=== PATIENT | male | born 1950 | race Caucasian/White ===

== ENCOUNTER 2018-05-18 10:20 | Emergency (ER) | payer MEDICARE, MEDICAID, SELFPAY ==
[2018-05-18] VITALS (34 sets, daily range): BP systolic 135–170; BP diastolic 81–112; PULSE 50–128; RESP 5–30; TEMP 36.7; O2SAT 95–100
--- NOTE | 2018-05-18 10:22 | DI.REPORT_ITS ---
SYMPTOM/DIAGNOSIS: DIZZY CHEST X-RAY: Portable AP view. Comparison 04/10/16 Heart size and pulmonary vasculature are stable. There is again seen an aortic valve replacement. The lungs are clear and well expanded. No effusions or pneumothoraces identified. IMPRESSION: No acute pulmonary process.
[2018-05-18 10:53] LABS: Absolute Basophil Count 0.02 k/cumm (0.0-0.2); Absolute Eosinophil Count 0.11 k/cumm (0.0-0.7); Absolute Lymphocyte Count 1.22 k/cumm (1.2-3.4); Absolute Monocyte Count 0.31 k/cumm (0.11-0.7); Absolute Neutrophil Count 2.55 k/cumm (1.2-6.7); Basophils % 0.5; Eosinophils % 2.6; HCT 42.8 % (40.0-50.0); HGB 14.3 g/dL (13.5-17.5); Mean Corp. HGB Concentration 33.4 g/dL (32.0-36.0); Mean Corpuscular Hemoglobin 29.7 pg (27.0-33.0); Mean Corpuscular Volume 88.8 fL (80-95); Mean Platelet Volume 12.1 fL (8.0-11.0); Monocytes % 7.4; Neutrophils % 60.5; Platelet Count 121 x1000/uL (130-400); RBC 4.82 m/cumm (4.50-6.00); White Blood Cell Count 4.21 k/cumm (4.4-10.8)
--- NOTE | 2018-05-18 11:04 | ED.GENADUL_ITS ---
Disposition Clinical Impression: Dizziness Disposition: AGAINST MEDICAL ADVICE Instructions: Dizziness (ED) Additional Instructions: Return registered nurse cardiac telemetry as directed. Please follow-up with your primary care physician. 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 Call to schedule an appointment as soon as possible. Return to the emergency department immediately for any worsening or new concerning symptoms. Referrals: Karma Savage MD [Primary Care Provider] - Medical Decision Making - Lab Data Laboratory Tests 05/18/18 10:45 WBC 4.21 L RBC 4.82 Hgb 14.3 Hct 42.8 MCV 88.8 MCH 29.7 MCHC 33.4 RDW 13.0 Plt Count 121 L MPV 12.1 H Immature Gran % 0.0 Neutrophils % 60.5 Lymphocytes % 29.0 Monocytes % 7.4 Eosinophils % 2.6 Basophils % 0.5 Absolute Neutrophils 2.55 Absolute Lymphocytes 1.22 Absolute Monocytes 0.31 Absolute Eosinophils 0.11 Absolute Basophils 0.02 Results reviewed for labs ordered during visit: Yes - Medical Decision Making 11:00 --67-year-old male with history of hypertension, hyperlipidemia, smoker, paroxysmal atrial fibrillation, bioprosthetic aortic valve replacement for bicuspid valve 2005, now with higher than normal transvalvular gradient noted in cardiology note 02/09/2018, episodes of bradycardia in the past, here after episode of dizziness. Vitals WNL. ECG reviewed and interpreted by me: Sinus bradycardia 58 bpm with first-degree AV block, KS interval 232, frequent PACs. Patient was noted to have a first- degree AV block 05/02/2017. I reviewed past medical record including cardiology note from 02/09/2018 that noted echocardiogram 02/01/2018 impression: Bioprosthetic aortic valve. Gradient has increased since previous study. Peak velocity 3.4 m/s. Velocity greater than expected for aortic valve replacement. Normal left ventricular size, moderate left ventricular hypertrophy, normal left ventricular function, left ventricular ejection fraction 60-65%, no regional wall motion abnormalities. Normal right ventricle. Severely dilated left atrium. Aortic valve bioprosthesis was present. Valve mobility was restricted. Mean gradient 26 mmHg, peak gradient 45 mmHg. VTI ratio 0.33. Plan to consult cardiology. 13:00 --Labs reviewed: Age-adjusted d-dimer negative. Troponin negative. Patient has had echocardiogram is awaiting for interpretation. Patient reassessed and remained stable and asymptomatic. 14:30 --patient reassessed multiple times. Patient remained stable. Ambulating without dysfunction. I called and spoke with Dr. Jerry and asked that he interpret the echocardiogram and noted that he would as soon as possible. 15:00 --patient wishes to leave AGAINST MEDICAL ADVICE. Patient notes he is tired of waiting for results. I explained to him that he may have life- threatening or lifestyle modifying disease and should stay for results and potentially further diagnostics and treatment. Patient verbalized understanding of my concerns. Patient left AMA. Patient refused zio patch today and noted he would be back tomorrow to place zio patch with respiratory therapy specifically noting it prefer to shower today first. Again I explained that he should have the monitor on as soon as possible and he verbalized understanding. History of Present Illness - General Chief complaint: Dizzy/Sync Stated complaint: CALEX Time Seen by Provider: 05/18/18 10:22 Source: patient, EMS, RN notes reviewed Mode of arrival: EMS Limitations: no limitations - History of Present Illness Initial comments: 67-year-old male with history of paroxysmal atrial fibrillation, hypertension, hypercholesterolemia, smoker, bioprosthetic aortic valve replacement for bicuspid valve 2005, higher than normal transvalvular gradient on echocardiogram , migraine headaches, here with chief complaint of dizziness. Dizziness occurred today while he was walking down the street. Patient notes he suddenly felt dizzy while he was in front of the restorationism. Dizziness felt like he was going to pass out. Patient laid down on the ground. He called EMS. He subsequently started to feel better. He is asymptomatic at this time. Symptoms were severe. Laying down may have helped. No associated chest pain or shortness of breath. Prior to this episode patient was feeling well today. - Related Data Acetaminophen [Acetaminophen Extra Strength] 2 tab PO Q6H PRN tab 01/11/13 Enalapril [Vasotec] 10 mg PO DAILY #90 tab-cap 05/23/17 Ammonium Lactate [AMMONIUM LACT 12%] 0 TP BID PRN #225 gm 08/22/17 Diltiazem HCl [Diltiazem 12Hr ER] 120 mg PO ONCE #90 cap 01/22/18 Pravastatin Sodium 20 mg PO DAILY #90 tab-cap 01/31/18 Apixaban [Eliquis] 5 mg PO BID #180 tab 02/09/18 Polyethylene Glycol 3350 [Miralax] 255 gm PO for colonoscopy #1 gram 02/12/18 Allergies Allergy/AdvReac Type Severity Reaction Status Date / Time Sun Light AdvReac Unknown Uncoded 05/18/18 10:35 Review of Systems Constitutional: denies: chills, fever Respiratory: denies: cough, shortness of breath Cardiovascular: denies: chest pain, palpitations, syncope Gastrointestinal: denies: abdominal pain Neurological: denies: headache Comment: All other systems reviewed and negative Past Medical History - Past Medical History Medical history: AFIB, hyperlipidemia, hypertension tachycardia Surgical history: other (aortic valve replacement) - Social History Smoking status: current some day smoker General Exam - General Limitations: no limitations General appearance: alert, in no apparent distress - Eye Eye exam: Absent: scleral icterus, conjunctival injection - ENT ENT exam: Present: mucous membranes moist - Respiratory Respiratory exam: Present: normal lung sounds bilaterally. Absent: respiratory distress, wheezes, rales, rhonchi - Cardiovascular Cardiovascular Exam: Present: regular rate, normal rhythm, normal heart sounds - GI/Abdominal GI/Abdominal exam: Present: soft. Absent: distended, tenderness - Extremities Exam Extremities exam: Absent: pedal edema, calf tenderness - Neurological Exam Neurological exam: Present: alert. Absent: altered - Psychiatric Psychiatric exam: Present: other (odd affect) - Skin Skin exam: Present: warm, dry, intact. Absent: cyanosis, diaphoretic Course Vital Signs - 24 hr 05/18/18 05/18/18 10:31 10:46 Temperature 36.7 C Pulse 60 Respiratory 18 14 Rate Blood Pressure 170/92 Pulse Oximetry 99
[2018-05-18 11:17] LABS: ALT 24 U/L (12-78); AST 26 U/L (15-37); Albumin 3.8 g/dL (3.4-5.0); Alkaline Phosphatase 41 U/L (46-116); Anion Gap 7.6 mmol/L (3-11); BUN 13 mg/dL (7-18); Bilirubin, Total 0.5 mg/dL (0.2-1.0); CO2 26.4 mmol/L (21.0-32.0); CREATININE 0.72 mg/dL (0.70-1.30); Calcium 8.7 mg/dL (8.5-10.1); Chloride 105 mmol/L (98-107); Glucose 97 mg/dL (70-100); Magnesium 2.2 mg/dL (1.8-2.4); Potassium 4.6 mmol/L (3.5-5.1); Sodium 139 mmol/L (136-145); Total Protein 6.7 g/dL (6.4-8.2)
[2018-05-18 11:18] LABS: Troponin I < 0.02 ng/mL (0.00-0.06)
[2018-05-18 11:25] LABS: TSH (W/Ref FT4) 2.72 uIU/mL (0.358-3.74)
[2018-05-18 11:41] LABS: D-Dimer 587 ng/mlFEU (<500)
--- NOTE | 2018-05-18 11:52 | MERGE_ITS ---
*[facility]* *[facility]* [address] [place] [address] Date of study: 05/18/2018 Transthoracic Echocardiography M-mode, complete 2D, complete spectral Doppler, and color Doppler *STUDY CONCLUSIONS* Summary: 1. Left ventricle: The cavity size was normal. Systolic function was hyperdynamic. The estimated ejection fraction was 65-70%. 2. Aortic valve: A bioprosthesis was present and functioning normally. The prosthesis had a normal range of motion. Peak velocity (S): 2.8m/sec. Mean gradient (S): 19.3mm Hg. VTI ratio of LVOT to aortic valve: 0.35. Valve area (VTI): 1cm^2. Indexed valve area (VTI): 0.5cm^2/m^2. 3. Mitral valve: There was moderate regurgitation. 4. Left atrium: The atrium was severely dilated. 5. Right ventricle: The cavity size was normal. Wall thickness was normal. Systolic function was normal. 6. Right atrium: The atrium was mildly dilated. 7. Atrial septum: No defect or patent foramen ovale was identified. 8. Pulmonary arteries: Pulmonary systolic pressure was in the range of 30mm Hg to 40mm Hg. 9. Inferior vena cava: The vessel was normal in size. The respirophasic diameter changes were blunted (less than 50%). *PATIENT PRESENTATION* Height: 170.2cm ((67in) ) S/D Pressure: 140 / 85 Weight: 81.2kg ((178.6lb) ) BSA: 1.98m^2 Test start time: 11:30 AM. Test stop time: 12:20 PM. PERFORMING Unknown PERFORMING [facility] ORDERING Marcus Nino REFERRING Marcus Nino SHIRT TURNER BrissaChloe jacobsen *PROCEDURE DATA* Procedure information: This study was interpreted by [facility]. Pertinent images and digital data are archived for permanent storage and are available for subsequent review. No prior study was available for comparison. Study status: STAT. Transthoracic echocardiography. M-mode, complete 2D, complete spectral Doppler, and color Doppler. A Transthoracic Echocardiogram was performed. Scanning was performed from the parasternal, apical, subcostal, and suprasternal notch acoustic windows. Images were obtained using an [employer] 2000 cardiac ultrasound machine. Image quality was good. Study completion: The patient tolerated the procedure well. History: PMH: Dizziness, avr. *CARDIAC ANATOMY* Left ventricle: The cavity size was normal. Systolic function was hyperdynamic. The estimated ejection fraction was 65-70%. The tissue Doppler parameters were normal. Diastolic parameters were normal. There was no evidence of elevated ventricular filling pressure by Doppler parameters. Aortic valve: A bioprosthesis was present and functioning normally. The prosthesis had a normal range of motion. Doppler: There was no regurgitation. VTI ratio of LVOT to aortic valve: 0.35. Valve area (VTI): 1cm^2. Indexed valve area (VTI): 0.5cm^2/m^2. Peak velocity ratio of LVOT to aortic valve: 0.37. Valve area (Vmax): 1.1cm^2. Indexed valve area (Vmax): 0.5cm^2/m^2. Mean velocity ratio of LVOT to aortic valve: 0.33. Valve area (Vmean): 1cm^2. Indexed valve area (Vmean): 0.5cm^2/m^2. Mean gradient (S): 19.3mm Hg. Peak gradient (S): 31.8mm Hg. Aorta: Aortic root: The aortic root was normal in size. Ascending aorta: The ascending aorta was normal in size. Mitral valve: Doppler: There was no evidence for stenosis. There was moderate regurgitation. Valve area by pressure half-time: 4cm^2. Indexed valve area by pressure half-time: 2cm^2/m^2. Peak gradient (D): 3.3mm Hg. Left atrium: The atrium was severely dilated. Atrial septum: No defect or patent foramen ovale was identified. Right ventricle: The cavity size was normal. Wall thickness was normal. Systolic function was normal. Pulmonic valve: Doppler: There was no evidence for stenosis. There was mild regurgitation. Peak gradient (S): 2.9mm Hg. Tricuspid valve: Doppler: There was mild regurgitation. Pulmonary artery: Poorly visualized. Pulmonary systolic pressure was in the range of 30mm Hg to 40mm Hg. Right atrium: The atrium was mildly dilated. Pericardium: There was no pericardial effusion. Systemic veins: Inferior vena cava: The vessel was normal in size. The respirophasic diameter changes were blunted (less than 50%). Measurements Left ventricle Value 02/01/2018 Reference LV ID, ED, PLAX 4.7 cm 4.5 3.5 - 6.0 LV ID, ES, PLAX 2.9 cm 2.9 2.1 - 4.0 LV PW thickness, ED, PLAX 1.1 cm 1.3 LV end-diastolic volume, 121 ml 73 1-p A2C LV ejection fraction, 1-p 58 % 65 A2C LV end-diastolic volume, 107 ml 101 1-p A4C LV ejection fraction, 1-p 52 % 70 A4C LV e', lateral 0.148 m/sec 0.13 LV E/e', lateral 6 8 LV e', medial 0.087 m/sec 0.084 LV E/e', medial 10 12 LV e', average 0.117 m/sec 0.107 LV E/e', average 8 9 Ventricular septum Value 02/01/2018 Reference IVS thickness, ED, PLAX 1.1 cm 1.4 LVOT Value 02/01/2018 Reference LVOT ID, A-P 1.9 cm 2.1 LVOT area 2.9 cm^2 3.4 LVOT peak velocity, S 1.05 m/sec 1 LVOT mean velocity, S 0.71 m/sec 0.7 LVOT VTI, S 21.5 cm 25.0 LVOT peak gradient, S 4.4 mm Hg 4 LVOT mean gradient, S 2.3 mm Hg 2.3 Stroke volume (SV), LVOT 63 ml 86 DP Stroke index (SV/bsa), 32 ml/m^2 43 LVOT DP Aortic valve Value 02/01/2018 Reference Aortic valve peak 2.8 m/sec 3.4 velocity, S Aortic valve mean 2.11 m/sec 2.42 velocity, S Aortic valve VTI, S 62.2 cm 76.6 Aortic mean gradient, S 19.3 mm Hg 26 Aortic peak gradient, S 31.8 mm Hg 45 VTI ratio, LVOT/AV 0.35 0.33 Aortic valve area, VTI 1 cm^2 1.1 Velocity ratio, peak, 0.37 0.3 LVOT/AV Aortic valve area, peak 1.1 cm^2 1 velocity Velocity ratio, mean, 0.33 0.29 LVOT/AV Aortic valve area, mean 1 cm^2 1 velocity Aortic valve area/bsa, 0.5 cm^2/m^2 0.5 mean velocity Aorta Value 02/01/2018 Reference Aortic root ID, ED 2.8 cm 3.0 Ascending aorta ID, A-P, S 3.2 cm 3.2 Left atrium Value 02/01/2018 Reference LA ID, A-P, ES 4.0 cm 4.2 LA ID/bsa, A-P 2.0 cm/m^2 2.1 <=2.2 LA area, ES, A4C (H) 24.9 cm^2 23 8.8 - 23.4 LA area, ES, A2C 33 cm^2 31 LA volume, ES, 2-p 116 ml 100 LA volume/bsa, ES, 2-p 59 ml/m^2 51 LA/aortic root ratio 1.41 1.38 Mitral valve Value 02/01/2018 Reference Mitral E-wave peak 0.91 m/sec 1 velocity Mitral A-wave peak 0.31 m/sec 0.42 velocity Mitral deceleration time 191 ms 166 150 - 230 Mitral pressure half-time 55 ms 48 Mitral peak gradient, D 3.3 mm Hg 4 Mitral E/A ratio, peak 2.9 2.41 Mitral valve area, PHT, DP 4 cm^2 4.6 Tricuspid valve Value 02/01/2018 Reference Tricuspid regurg peak 2.5 m/sec 2.5 velocity Tricuspid peak RV-RA 25.1 mm Hg 25 gradient Right atrium Value 02/01/2018 Reference RA area, ES, A4C (H) 22.1 cm^2 26.1 8.3 - 19.5 Pulmonic valve Value 02/01/2018 Reference Pulmonic peak gradient, S 2.9 mm Hg Legend: (L) and (H) veda values outside specified reference range. I have personally reviewed the images and have reviewed and edited the reported findings. Electronically signed by Ha Jerry MD 05/18/2018 17:47
== END 2018-05-18 14:59 | disposition left against medical advice (07) ==
PROVIDERS: Emergency Provider Student in an Organized Health Care Education/Training Program; PCP Internal Medicine
DX: R42 Dizziness and giddiness (principal); I44.0 Atrioventricular block, first degree; Z53.29 Procedure and treatment not carried out because of patient's decision for other reasons; I48.0 Paroxysmal atrial fibrillation; Z95.2 Presence of prosthetic heart valve; I10 Essential (primary) hypertension
CPT/HCPCS: 71045; 93005; 93306; 99285 ×2; 36415; 80053; 83735; 84443; 84484; 85025; 85379; 93010

== ENCOUNTER 2018-10-01 09:23 | Outpatient (CLI) | payer MEDICARE, MEDICAID, SELFPAY | END 2018-10-01 09:43 | PROVIDERS: PCP Internal Medicine; Visit Provider Internal Medicine Interventional Cardiology | DX: R00.2 Palpitations (principal); I48.0 Paroxysmal atrial fibrillation | CPT/HCPCS: 93225 ==

== ENCOUNTER 2018-10-15 15:56 | Outpatient (CLI) | payer MEDICARE, MEDICAID, SELFPAY | END 2018-10-15 16:16 | PROVIDERS: PCP Internal Medicine; Visit Provider Internal Medicine Interventional Cardiology | DX: R00.2 Palpitations (principal); I48.91 Unspecified atrial fibrillation; I47.2 Ventricular tachycardia | CPT/HCPCS: 93225 ==

== ENCOUNTER 2018-10-18 11:06 | Outpatient (CLI) | payer MEDICARE, MEDICAID, SELFPAY ==
--- NOTE | 2018-10-19 09:35 | HOLTER_ITS ---
HOLTER MONITOR INTERPRETATION DATE OF DICTATION October 19, 2018 INDICATION Palpitations. Analysis time 48 hours. Baseline sinus rhythm. Average heart rate 64 beats per minute. Minimum heart rate 47 beats per minute. Max heart rate 160 beats per minute. Rare isolated ventricular ectopy. No nonsustained VT. Paroxysmal episodes of atrial fibrillation/ flutter with RVR. Afib burden at least 9% if not longer. No significant pauses or gonzales arrhythmias. Occasionally, the atrial fibrillation appears to potentially be atrial flutter with variable block. Overall, sinus rhythm with paroxysmal episodes of what appears to be atrial flutter with variable block. Laney Walton M.D. TRESA/francoise T-10/19/2018
== END 2018-10-18 11:26 ==
PROVIDERS: PCP Internal Medicine; Visit Provider Internal Medicine Interventional Cardiology
DX: R00.2 Palpitations (principal); I48.91 Unspecified atrial fibrillation; I47.2 Ventricular tachycardia
CPT/HCPCS: 93226

== ENCOUNTER 2018-10-19 09:02 | Outpatient (CLI) | payer MEDICARE, MEDICAID, SELFPAY | END 2018-10-19 09:22 | PROVIDERS: PCP Internal Medicine; Referring Provider Internal Medicine; Visit Provider Internal Medicine Cardiovascular Disease | DX: R00.2 Palpitations (principal); I48.91 Unspecified atrial fibrillation; I47.2 Ventricular tachycardia | CPT/HCPCS: 93227 ==

== ENCOUNTER 2018-10-22 10:39 | Outpatient (CLI) | payer MEDICARE, MEDICAID, SELFPAY | END 2018-10-22 10:59 | PROVIDERS: PCP Internal Medicine; Visit Provider Internal Medicine Interventional Cardiology | DX: I48.0 Paroxysmal atrial fibrillation (principal); I47.1 Supraventricular tachycardia; Z79.01 Long term (current) use of anticoagulants; I49.5 Sick sinus syndrome; Z95.2 Presence of prosthetic heart valve; R07.9 Chest pain, unspecified; I10 Essential (primary) hypertension | CPT/HCPCS: 99214; 93005; 93010 ==

== ENCOUNTER 2019-02-05 00:31 | Outpatient (CLI) | payer MEDICARE, MEDICAID, SELFPAY ==
--- NOTE | 2019-02-05 12:12 | DI.US_ITS ---
SYMPTOMS/DIAGNOSIS: SCREENING FOR AAA, Z13.6 ULTRASOUND FOR AAA SCREENING: There is no evidence of abdominal aortic aneurysm. No iliac artery aneurysm is seen. IMPRESSION: No evidence of aortic or proximal iliac artery aneurysm.
== END 2019-02-05 00:51 ==
PROVIDERS: PCP Internal Medicine; Visit Provider Internal Medicine
DX: Z13.6 Encounter for screening for cardiovascular disorders (principal)
CPT/HCPCS: 76706

== ENCOUNTER → 2019-04-10 12:38 | Outpatient (BNVA) | payer MEDICARE, MEDICAID, SELFPAY | PROVIDERS: PCP Internal Medicine; Referring Provider Internal Medicine; Visit Provider Nurse Practitioner Adult Health | DX: R51 Headache (principal); Z53.29 Procedure and treatment not carried out because of patient's decision for other reasons ==

== ENCOUNTER 2019-04-23 00:49 | Outpatient (CLI) | payer MEDICARE, MEDICAID, SELFPAY ==
--- NOTE | 2019-04-23 12:30 | MERGE_ITS ---
*[facility]* *[facility]* [address] [place] [address] Date of study: 04/23/2019 Transthoracic Echocardiography M-mode, complete 2D, complete spectral Doppler, and color Doppler *STUDY CONCLUSIONS* Summary: 1. Left ventricle: The cavity size was normal. Wall thickness was increased in a pattern of mild LVH. Systolic function was normal. The estimated ejection fraction was 60-65%. Wall motion was normal; there were no regional wall motion abnormalities. 2. Aortic valve: A bioprosthesis was present. Transvalvular velocity was increased more than expected. Peak velocity (S): 3.2m/sec. Mean gradient (S): 26.5mm Hg. Peak velocity ratio of LVOT to aortic valve: 0.3. 3. Mitral valve: There was mild regurgitation. 4. Left atrium: The atrium was moderately dilated. 5. Right ventricle: The cavity size was normal. Wall thickness was normal. Systolic function was normal. 6. Right atrium: The atrium was mildly to moderately dilated. *PATIENT PRESENTATION* Height: 170.2cm (67in ) S/D Pressure: 143 / 88 Weight: 79.4kg (174.6lb ) BSA: 1.95m^2 Test start time: 12:40 PM. Test stop time: 01:45 PM. ORDERING Ha Jerry MD REFERRING Ha Jerry MD CONSULTING Karma Savage PERFORMING Unknown PERFORMING [facility] [employer]TE[employer] DESIGN ENGINEER RT Vivian (R)(WALI)RAUL *PROCEDURE DATA* Procedure information: The patient was identified by two identifiers. This study was interpreted by [facility]. Pertinent images and digital data are archived for permanent storage and are available for subsequent review. Comparison was made to the study of 05/18/2018. Study status: Routine. Transthoracic echocardiography. M-mode, complete 2D, complete spectral Doppler, and color Doppler. A Transthoracic Echocardiogram was performed. Scanning was performed from the parasternal, apical, subcostal, and suprasternal notch acoustic windows. Images were obtained using an [id number] cardiac ultrasound machine. Image quality was adequate. Study completion: The patient tolerated the procedure well. There were no complications. History: PMH: HTn, FIB, SVT, tachycardia i48.91. *CARDIAC ANATOMY* Left ventricle: The cavity size was normal. Wall thickness was increased in a pattern of mild LVH. Systolic function was normal. The estimated ejection fraction was 60-65%. Wall motion was normal; there were no regional wall motion abnormalities. Diastolic parameters were normal. Aortic valve: A bioprosthesis was present. Mobility was not restricted. Doppler: Transvalvular velocity was increased more than expected. There was no significant regurgitation. VTI ratio of LVOT to aortic valve: 0.3. Valve area (VTI): 0.9cm^2. Indexed valve area (VTI): 0.4cm^2/m^2. Peak velocity ratio of LVOT to aortic valve: 0.3. Valve area (Vmax): 0.9cm^2. Indexed valve area (Vmax): 0.5cm^2/m^2. Mean velocity ratio of LVOT to aortic valve: 0.31. Valve area (Vmean): 0.9cm^2. Indexed valve area (Vmean): 0.5cm^2/m^2. Mean gradient (S): 26.5mm Hg. Peak gradient (S): 40.6mm Hg. Aorta: Aortic root: The aortic root was normal in size. Ascending aorta: The ascending aorta was normal in size. Mitral valve: Structurally normal valve. Mobility was not restricted. Doppler: There was mild regurgitation. Valve area by pressure half-time: 3.9cm^2. Indexed valve area by pressure half-time: 2cm^2/m^2. Peak gradient (D): 3.7mm Hg. Left atrium: The atrium was moderately dilated. Right ventricle: The cavity size was normal. Wall thickness was normal. Systolic function was normal. Pulmonic valve: Structurally normal valve. Doppler: Transvalvular velocity was within the normal range. There was no evidence for stenosis. There was trivial regurgitation. Peak gradient (S): 5.4mm Hg. Tricuspid valve: Structurally normal valve. Doppler: Transvalvular velocity was within the normal range. There was no evidence for stenosis. There was mild regurgitation. Pulmonary artery: Pulmonary systolic pressure was within the normal range, in the range of 30mm Hg to 35mm Hg. Right atrium: The atrium was mildly to moderately dilated. Pericardium: There was no pericardial effusion. Systemic veins: Inferior vena cava: Well visualized. The vessel was patent and normal in size. The respirophasic diameter changes were in the normal range (greater than or equal to 50%). Baseline ECG: Bradycardia. Measurements Left ventricle Value 05/18/2018 Reference LV ID, ED, PLAX 4.9 cm 4.7 3.5 - 6.0 LV ID, ES, PLAX 3.1 cm 2.9 2.1 - 4.0 LV PW thickness, ED, PLAX 1.1 cm 1.1 LV end-diastolic volume, 88 ml 121 1-p A2C LV ejection fraction, 1-p 53 % 58 A2C LV end-diastolic volume, 90 ml 107 1-p A4C LV ejection fraction, 1-p 62 % 52 A4C LV e', lateral 0.128 m/sec 0.148 LV E/e', lateral 7 6 LV e', medial 0.075 m/sec 0.087 LV E/e', medial 13 10 LV e', average 0.101 m/sec 0.117 LV E/e', average 9 8 Ventricular septum Value 05/18/2018 Reference IVS thickness, ED, PLAX 1.1 cm 1.1 LVOT Value 05/18/2018 Reference LVOT ID, A-P 1.9 cm 1.9 LVOT area 2.9 cm^2 2.9 LVOT peak velocity, S 0.97 m/sec 1.05 LVOT mean velocity, S 0.78 m/sec 0.71 LVOT VTI, S 22.6 cm 21.5 LVOT peak gradient, S 3.7 mm Hg 4.4 LVOT mean gradient, S 2.6 mm Hg 2.3 Stroke volume (SV), LVOT 66 ml 63 DP Stroke index (SV/bsa), 34 ml/m^2 32 LVOT DP Aortic valve Value 05/18/2018 Reference Aortic valve peak 3.2 m/sec 2.8 velocity, S Aortic valve mean 2.5 m/sec 2.1 velocity, S Aortic valve VTI, S 76.0 cm 62.2 Aortic mean gradient, S 26.5 mm Hg 19.3 Aortic peak gradient, S 40.6 mm Hg 31.8 VTI ratio, LVOT/AV 0.3 0.35 Aortic valve area, VTI 0.9 cm^2 1 Velocity ratio, peak, 0.3 0.37 LVOT/AV Aortic valve area, peak 0.9 cm^2 1.1 velocity Velocity ratio, mean, 0.31 0.33 LVOT/AV Aortic valve area, mean 0.9 cm^2 1 velocity Aortic valve area/bsa, 0.5 cm^2/m^2 0.5 mean velocity Aorta Value 05/18/2018 Reference Aortic root ID, ED 3.0 cm 2.8 Ascending aorta ID, A-P, S 3.0 cm 3.2 Left atrium Value 05/18/2018 Reference LA ID, A-P, ES 5.4 cm 4.0 LA ID/bsa, A-P (H) 2.8 cm/m^2 2.0 <=2.2 LA volume/bsa, ES, 1-p A4C 48 ml/m^2 LA volume, ES, 2-p 90 ml 116 LA volume/bsa, ES, 2-p 46 ml/m^2 59 LA/aortic root ratio 1.78 1.41 Mitral valve Value 05/18/2018 Reference Mitral E-wave peak 0.96 m/sec 0.91 velocity Mitral A-wave peak 0.31 m/sec 0.31 velocity Mitral deceleration time 195 ms 191 150 - 230 Mitral pressure half-time 57 ms 55 Mitral peak gradient, D 3.7 mm Hg 3.3 Mitral E/A ratio, peak 3.08 2.9 Mitral valve area, PHT, DP 3.9 cm^2 4 Pulmonary veins Value 05/18/2018 Reference Pulmonary vein peak 0.3 m/sec velocity, S Pulmonary vein peak 0.48 m/sec velocity, D Pulmonary vein velocity 0.63 ratio, peak, S/D Pulmonary vein A-wave 0.2 m/sec reversal peak velocity Tricuspid valve Value 05/18/2018 Reference Tricuspid regurg peak 2.6 m/sec 2.5 velocity Tricuspid peak RV-RA 26.9 mm Hg 25.1 gradient Right atrium Value 05/18/2018 Reference RA area, ES, A4C (H) 23.3 cm^2 22.1 8.3 - 19.5 Pulmonic valve Value 05/18/2018 Reference Pulmonic peak gradient, S 5.4 mm Hg 2.9 Pulmonic regurg velocity, 1.16 m/sec ED Pulmonic regurg gradient, 5 mm Hg ED Legend: (L) and (H) veda values outside specified reference range. I have personally reviewed the images and have reviewed and edited the reported findings. Electronically signed by Lg Anne 04/23/2019 17:49
== END 2019-04-23 01:09 ==
PROVIDERS: PCP Internal Medicine; Visit Provider Internal Medicine Interventional Cardiology
DX: I48.91 Unspecified atrial fibrillation (principal); I10 Essential (primary) hypertension; I47.1 Supraventricular tachycardia; I34.0 Nonrheumatic mitral (valve) insufficiency; Z95.3 Presence of xenogenic heart valve; G43.109 Migraine with aura, not intractable, without status migrainosus; G43.009 Migraine without aura, not intractable, without status migrainosus; R51 Headache
CPT/HCPCS: 93306; 99205; 99215

== ENCOUNTER 2019-04-29 08:25 | Outpatient (CLI) | payer MEDICARE, MEDICAID, SELFPAY | END 2019-04-29 08:45 | PROVIDERS: PCP Internal Medicine; Visit Provider Internal Medicine Interventional Cardiology | DX: I48.0 Paroxysmal atrial fibrillation (principal); I10 Essential (primary) hypertension; I47.1 Supraventricular tachycardia; I48.92 Unspecified atrial flutter; Z79.01 Long term (current) use of anticoagulants; I49.5 Sick sinus syndrome; Z95.2 Presence of prosthetic heart valve | CPT/HCPCS: 99214; 93005; 93010 ==

== ENCOUNTER 2019-05-08 14:01 | Outpatient (CLI) | payer MEDICARE, MEDICAID, SELFPAY ==
[2019-05-08 15:09] LABS: Anion Gap 9.3 mmol/L (3-11); BUN 11 mg/dL (7-18); CO2 26.7 mmol/L (21.0-32.0); CREATININE 0.97 mg/dL (0.70-1.30); Calcium 9.1 mg/dL (8.5-10.1); Calculated LDL 78 mg/dL; Chloride 105 mmol/L (98-107); Cholesterol 146 mg/dL (50-200); Glucose 88 mg/dL (70-100); HDL Cholesterol 58 mg/dL (40-60); Potassium 4.5 mmol/L (3.5-5.1); Sodium 141 mmol/L (136-145); Triglyceride 50 mg/dL (30-150)
[2019-05-09 09:57] LABS: Hepatitis C Ab w Rflx HCV PCR Negative (NEGAT)
== END 2019-05-08 14:21 ==
PROVIDERS: PCP Internal Medicine; Visit Provider Internal Medicine
DX: Z11.59 Encounter for screening for other viral diseases (principal); E78.00 Pure hypercholesterolemia, unspecified; I10 Essential (primary) hypertension
CPT/HCPCS: 36415; 80048; 80061; 83721; 86803

== ENCOUNTER → 2019-06-07 13:28 | Outpatient (BNVA) | payer MEDICARE, MEDICAID, SELFPAY | PROVIDERS: PCP Internal Medicine; Referring Provider Internal Medicine; Visit Provider Physical Therapy Assistant | DX: Z12.11 Encounter for screening for malignant neoplasm of colon (principal) ==

== ENCOUNTER 2019-06-20 09:33 | Day surgery (SDC) | payer MEDICARE, MEDICAID, SELFPAY ==
[2019-06-20 10:10] VITALS: BP 159/104; PULSE 64; RESP 16; TEMP 36.5; O2SAT 100
[2019-06-20] MEDS: Lactated Ringers 1,000 ML 80 ML IV (10:35)
[2019-06-20 10:53] VITALS: BP 159/104; PULSE 64; RESP 16; TEMP 36.5; O2SAT 100
--- NOTE | 2019-06-20 12:01 | BOWEL_PTH ---
PATIENT: Chago Ford LOC: [facility] U#:[id number] AGE/SX: 68/M ROOM: RE06/20/[address]: Mar Isbell : 1950 BED: DIS: 06/20/2019 SPEC #: [id number] RECD: 06/20/19 12:42 STATUS: JAVON REQ #: [id number] SATISH: 06/20/19 12:[address]: Mar Isbell DEPT: Surgical Specimen RECD BY: Nilda Balderrama ENTERED: 06/20/19 12:43 SP TYPE: Bowel OTHR DR: Karma Savage MD Tissues: 1 - BIOPSY BOWEL Procedures: GROSS AND MICRO LEVEL 4 Comments: [id number]
--- NOTE | 2019-06-20 12:06 | W.PM.DSUDISC ---
Discharge Plan Disposition Patient Disposition: HOME Condition: Good Discharge Details Reason For Visit: scope of colon Attending Provider: Mar Isbell Primary Care Provider: Karma Savage Home Meds and New Rx's Prescriptions: Continued Emetrol solution 15 ml PO Q15M PRN (Reason: nausea) Qty: 118 RF: 0 ammonium lactate 12 % lotion 1 applic Topical BID PRNQty: 225 RF: 5 enalapril maleate 10 mg tablet 10 mg PO DAILY Qty: 90 RF: 1 Eliquis 5 mg tablet 5 mg PO BID Qty: 180 RF: 3 pravastatin 20 mg tablet 20 mg PO DAILY Qty: 90 RF: 3 simethicone 80 mg tablet,chewable 80 mg PO AC Qty: 30 RF: 0 Discontinued polyethylene glycol 3350 17 gram/dose powder 238 g PO ONCE Qty: 238 RF: 0 bisacodyl [Dulcolax (bisacodyl)] 5 mg tablet,delayed release (DR/EC) 5 mg PO ONCE Qty: 4 RF: 0 Discharge Instructions Instructions: Diverticulosis (ED), High Fiber Diet (ED) Additional Instructions: Findings: minor divertic of sigmoid colon small polyp in sigmoid- most likely hyperplastic. Will send a letter in 2-3wks time w/ pathology report. resume Elquis in am 9/6. Follow up: repeat in 10yrs time. Please call if you develop: fevers >101.5 Nausea or Vomiting Abdominal pain that is not transient DAY SURGERY UNIT POST COLONOSCOPY INSTRUCTIONS 1. Because there will be medication in your system for the next 24 hours, you may feel a little sleepy. Your coordination will be affected. Therefore: a. Do not drive or operate dangerous equipment for 24 hours. b. Do not drink alcohol beverages for 24 hours (not even beer). c. Plan to go home and rest for the day. 2. Generally there are no restrictions on your activity after a day or so has gone by, but you may feel a bit fatigued for a few days. 3 After you arrive home you may have a light meal and return to a normal diet as you can tolerate it without feeling sick to your stomach. 4. After surgery, you may feel pain or discomfort. This should be only transient, but if it persists please contact your doctor. 5. If there are any questions regarding the findings of your procedure, please feel free to contact your doctor. 6. If you are unable to contact your doctor with a problem, contact the hospital at [phone]. 7. Continue all your regular medications unless directed otherwise. I understand the above instructions and have no questions. Signature of Patient or Responsible Adult Escort Date/Time Name of Responsible Adult Escort Signature of Nurse Date/Time Discharge Orders Discharge Orders: Discharge Order (Routine); Ordered 06/20/19 Ordered By: Mar Isbell DS: Diagnosis Discharge Diagnosis (1) Diverticula of colon: Status: Acute (2) External hemorrhoids without complication: Status: Acute
--- NOTE | 2019-06-20 12:12 | W.COLOREPORT ---
Date of service: 06/20/19 Time of Service: 12:12 Colonoscopy Report Date of procedure: 06/20/19 Pre-op diagnosis general: CRC screen Post-op diagnosis procedure note: other (minor divertic of sigmoid colon/ext hem/sm polyp at 40cm ) Procedure: CE and polyp remval at 40cm Surgeon: Mar Isbell Anesthesia proc note operative: GETA Estimated blood loss (mL): 1 Pathology: other Complications: None Disposition: same day Prep: Miralax/Dulcolax Retraction Time: 10 mins Procedure Description: Informed consent was obtained, explaining the risks and benefits of the procedure, including but not limited to bleeding, infection, perforation, aspiration, complications from the anesthesia. DESCRIPTION OF PROCEDURE: The patient was brought to the endoscopy suite and placed in left lateral decubitus position. Anesthesia was administered per the Department of Anesthesia, with constant monitoring of all vital signs. Digital rectal exam was performed prior to beginning the procedure and revealed small external hemorrhoid with no active inflammation or bleeding.. The previously lubricated Olympus was inserted in the rectum and insufflation was begun. The scope was passed up through the recto-sigmoid valves, through the sigmoid and transverse, down the ascending and the cecum was achieved at 90 cm. Good prep was noted. The scope was then withdrawn. She is diverticula sigmoid colon. There is no signs of active bleeding or infection. He has a small polyp at 40 cm?most likely hyperplastic. This is with a cold biting forcep. No bleeding is noted and the patient the specimen is sent for pathology. The patient tolerated the procedure without complicated and transferred to the recovery room in stable condition. Colonoscopy should be repeated in 10 years time-if he is still healthy for anesthesia. -
[2019-06-20 12:38] VITALS: BP 153/99; PULSE 57; RESP 16; TEMP 35.7; O2SAT 100
== END 2019-06-20 13:08 | disposition home or self-care (01) ==
PROVIDERS: PCP Internal Medicine; Visit Provider Surgery
PROC: 0DJD8ZZ Inspection of Lower Intestinal Tract, Via Natural or Artificial Opening Endoscopic (ICD-10-PCS; CPT 45378; principal; 2019-06-20 10:15)
DX: Z12.11 Encounter for screening for malignant neoplasm of colon (principal); K63.5 Polyp of colon; K57.30 Diverticulosis of large intestine without perforation or abscess without bleeding; K64.4 Residual hemorrhoidal skin tags; I10 Essential (primary) hypertension
CPT/HCPCS: 45380; 88305

== ENCOUNTER 2019-09-19 01:22 | Outpatient (CLI) | payer MEDICARE, MEDICAID, SELFPAY ==
--- NOTE | 2019-09-19 13:10 | DI.CTLCSR_ITS ---
EXAM: CT CHEST LUNG CANCER SCREEN CLINICAL HISTORY: SCREENING FOR LUNG CANCER, F17.210, NICOTINE DEPENDENCE TECHNIQUE: Low-dose noncontrast screening technique. COMPARISON: CHEST - LUNG CANCER SCREENING from 01/26/2018 FINDINGS: An aortic valve prosthesis is seen. There is enlargement of the left atrium and left ventricle. Th e aorta appears normal in diameter. Mediastinal clips are noted. There are no pleural or pericardia l effusions or evidence of adenopathy. There is respiratory motion greater at the lung bases. No pu lmonary nodules are identified. No infiltrates are seen. A cyst is again noted at the upper pole of the left kidney. A cyst is seen near the lower pole of the right kidney. Gallstones are faintly vi sible. Osteophytes are seen in the thoracic spine. IMPRESSION: Lung rads category 1, negative. Annual low-dose screening CT is recommended. Lung RADS Cat 1 - Negative: No nodules and definitely benign nodules
== END 2019-09-19 01:42 ==
PROVIDERS: PCP Internal Medicine; Visit Provider Internal Medicine
DX: Z12.2 Encounter for screening for malignant neoplasm of respiratory organs (principal); F17.210 Nicotine dependence, cigarettes, uncomplicated; Z95.2 Presence of prosthetic heart valve
CPT/HCPCS: G0297

== ENCOUNTER → 2019-12-17 12:42 | Outpatient (BNVA) | payer MEDICARE, MEDICAID, SELFPAY | PROVIDERS: PCP Internal Medicine; Referring Provider Internal Medicine; Visit Provider Internal Medicine Cardiovascular Disease | DX: I48.0 Paroxysmal atrial fibrillation (principal); I10 Essential (primary) hypertension; E78.00 Pure hypercholesterolemia, unspecified; Z95.4 Presence of other heart-valve replacement | CPT/HCPCS: 99204; 99215 ==

== ENCOUNTER 2020-03-24 01:27 | Outpatient (CLI) | payer MEDICARE, MEDICAID, SELFPAY ==
--- NOTE | 2020-03-24 13:39 | DI.US_ITS ---
APPROVED REPORT EXAM: Comprehensive 2D, Doppler, and color-flow Echocardiogram Patient Location: Out-Patient Ed Physicians: Chloe Francois RDCS (AE) Indications: Aortic Valve Replacement Other Information Study Quality: Fair Conclusion Left Ventricle : The left ventricle is normal size. The left ventricular systolic function is normal. The left ventricular ejection fraction is within the normal range. Borderline concentric left ventri cular hypertrophy. There is normal LV segmental wall motion. Diastolic function is indeterminate. LVE F is 50%. Right Ventricle : The right ventricle is normal size. The right ventricular systolic function is norm al. The RVSP is 22mmHg. Atria : The left atrium size is normal. The right atrium size is normal. Aortic Valve : Bioprosthetic aortic valve is present. Moderate aortic stenosis. Peak aortic valve gra dient is 33.3mmHg. Highest mean aortic valve gradient is 22.3mmHg. Calculated MILEY by the continuity e quation is 1.05cm2. No aortic regurgitation is present. Mitral Valve : There is mitral annular calcification. No evidence of mitral valve stenosis. Mild mitr al regurgitation. Great Vessels : IVC is normal in size and collapses >50% with inspiration. Compared to echocardiogram from April 2019: There is no significant change. Mean gradient of the aort ic valve remains in the low to mid 20s and calculated aortic valve area approximately 1 cm???. Wall motion Left Ventricle The left ventricle is normal size. The left ventricular systolic function is normal. The left ventric ular ejection fraction is within the normal range. Borderline concentric left ventricular hypertrophy . There is normal LV segmental wall motion. Diastolic function is indeterminate. There is no ventricu lar septal defect visualized. LVEF is 50%. Right Ventricle The right ventricle is normal size. The right ventricular systolic function is normal. The RVSP is 22 mmHg. Atria The left atrium size is normal. The right atrium size is normal. The interatrial septum is intact wit h no evidence for an atrial septal defect. Aortic Valve Bioprosthetic aortic valve is present. Moderate aortic stenosis. Peak aortic valve gradient is 33.3mm Hg. Highest mean aortic valve gradient is 22.3mmHg. Calculated MILEY by the continuity equation is 1.05 cm2. No aortic regurgitation is present. Mitral Valve There is mitral annular calcification. No evidence of mitral valve stenosis. Mild mitral regurgitatio n. Tricuspid Valve The tricuspid valve is normal in structure. There is no tricuspid valve stenosis. Trace to mild tricu spid regurgitation. Pulmonic Valve The pulmonary valve is normal in structure. There is no pulmonic valvular stenosis. Trace to mild pul baljeet regurgitation. Great Vessels The aortic root is normal in size. Ascending aorta is normal in caliber. IVC is normal in size and co llapses >50% with inspiration. Pericardium There is no pericardial effusion. 2D Dimensions IVSD d PLAX 1.19 cm M: 0.6-1.2 LV Vol A2C d MOD 86.0 mL LVPW d PLAX 1.13 cm M: 0.6 - 1.2 LV Vol A4C d MOD 115.4 mL LVID d PLAX 4.22 cm M: 4.2 - 5.8 LA Area A4C s MOD 19.87 cm2 LVDs 3.00 cm M: 2.5 - 4.0 LA Area A2C s MOD 29.50 cm2 Ao Root d 2.64 cm M: 3.1 - 3.7 LV EF A4C MOD 49.6 % RA Area A4C 18.75 cm2 LV EF A2C MOD 50.6 % Ao Asc Diam d 3.16 cm M: 2.6 - 3.4 LV EF Biplane MOD 49.3 % LV EF Teichholz 55.9 % SV 48.75 mL LVEF (Moctezuma's) 49.28 % M: 52 - 72 LV Volume 98.93 mL M: 62 - 150 LV Vol Biplane MOD 98.9 mL FS 28.85 % M-Mode TAPSE 1.81 cm (M/F) >1.7 LV Diastology MV E' lateral 0.134 (>0.1 m/s) MV E Vmax 1.17 (0.4-1.3 m/s) LV E/e LAT 8.70 (<14) MV E/E' lateral 8.73 Aortic Valve LVOT Area 3.33 cm2 AoV Area Vmax 1.05 cm2 LVOT Vmax 0.90 m/s MILEY Mean Stone. 0.92 cm2 LVOT Mean Stone. 0.63 m/s LVOT Peak Grad 3.3 mmHg LVOT Mean Grad 1.7 mmHg LVOT VTI 0.161 m LVOT Diam s 2.05 cm AoV Vmax 2.88 m/s Velocity Ratio 0.31 AoV Mean Stone. 2.27 m/s AoV Peak Grad 33.3 mmHg LVOT SV 53.64 mL AoV Mean Grad 22.3 mmHg AoV VTI 0.630 m AoV Area VTI 0.85 cm2 Mitral Valve MV DT 115 (160-240 msec) MR PISA Radius 0.53 cm MV PHT 33 msec MR Aliasing Velocity 0.35 m/s MV Area PHT 6.57 cm2 MR PISA 1.80 cm2 MV VTI 1.720 m MV Area VTI 0.31 (4.0-6.0 cm2) Pulmonary Valve PV Vmax 0.88 (0.5-1.5 m/s) RVOT Peak Gr. 0.71 mmHg PV Peak Grad 3.1 mmHg RVOT Mean Gr. 0.40 mmHg PV Mean Grad 1.8 mmHg RVOT VTI 0.062 m PV VTI 0.121 m RVOT Vmax 0.42 m/s Tricuspid Valve TR Peak Grad 19.0 mmHg TR Vmax 2.18 m/s RA Pressure 3.00 mmHg RVSP (TR) 22.0 mmHg
== END 2020-03-24 01:47 ==
PROVIDERS: PCP Internal Medicine; Visit Provider Internal Medicine Cardiovascular Disease
DX: I48.0 Paroxysmal atrial fibrillation (principal); Z95.3 Presence of xenogenic heart valve; I10 Essential (primary) hypertension
CPT/HCPCS: 93306

== ENCOUNTER 2020-05-13 03:14 | Outpatient (CLI) | payer MEDICARE, MEDICAID, SELFPAY ==
[2020-05-13 15:04] LABS: Anion Gap 6.8 mmol/L (3-11); BUN 9 mg/dL (7-18); CO2 26.2 mmol/L (21.0-32.0); CREATININE 0.83 mg/dL (0.70-1.30); Calcium 8.9 mg/dL (8.5-10.1); Calculated LDL 79 mg/dL (<100); Chloride 102 mmol/L (98-107); Cholesterol 139 mg/dL (<200); Glucose 92 mg/dL (74-106); HDL Cholesterol 54 mg/dL (40-60); Potassium 4.1 mmol/L (3.5-5.1); Sodium 135 mmol/L (136-145); Triglyceride 33 mg/dL (<150)
== END 2020-05-13 03:34 ==
PROVIDERS: PCP Internal Medicine; Visit Provider Internal Medicine
DX: E78.00 Pure hypercholesterolemia, unspecified (principal); I10 Essential (primary) hypertension
CPT/HCPCS: 36415; 80048; 80061

== ENCOUNTER 2020-06-06 15:54 | Emergency (ER) | payer MEDICARE, MEDICAID, SELFPAY ==
[2020-06-06 16:24] VITALS: BP 159/103; PULSE 64; RESP 18; TEMP 37.2; O2SAT 98
[2020-06-06 16:44] LABS: Bilirubin Negative (Negative); Blood Moderate (Negative); Clarity Clear (Clear); Glucose Negative (Negative); Ketones Negative (Negative); Leukocyte Esterase Negative (Negative); Nitrite Negative (Negative); Specific Gravity <= 1.005 (1.005-1.025); Urobilinogen 0.2 EU/dL (Up TO 0.2); pH 5.5 (5-8)
--- NOTE | 2020-06-06 16:48 | ED.GENADUL_ITS ---
Discharge Plan Disposition Patient Disposition: HOME Condition: Good Discharge Details Chief Complaint: Urinary Clinical Impression: Hematuria Primary Care Provider: Karma Savage ED Provider: Cedric Monreal Stafford Meds and New Rx's Prescriptions: Continued ammonium lactate 12 % lotion 1 applic Topical BID PRNQty: 225 RF: 5 Eliquis 5 mg tablet 5 mg PO BID Qty: 180 RF: 3 enalapril maleate 10 mg tablet 10 mg PO DAILY Qty: 90 RF: 3 pravastatin 20 mg tablet 20 mg PO DAILY Qty: 90 RF: 3 dicyclomine 10 mg capsule 10 mg PO BID PRN (Reason: abdominal pain) Qty: 10 RF: 0 Discharge Instructions Instructions: Hematuria (ED) Additional Instructions: I reviewed your CT scan reverts out from [facility] in April. While there are kidney cysts there is no obvious pathology to explain your hematuria. It may be related to your Eliquis but at this point I would not discontinue that medicine. Your blood count and kidney function are normal. Will refer you to Dr. Mata for further work-up and evaluation of the hematuria. You should return to ED if you have inability to urinate, gross blood with clots, fever. Referrals: Oscar Mata MD [ [facility] STAFF PHYSICIAN] - Discharge Data Discharge Date/Time-TO BE ENTERED AT DEPARTURE: 06/06/20 19:45 Medical Decision Making 69-year-old gentleman presenting with pink urine but not gross hematuria. Prior history of benign bladder tumor. He is on Eliquis. Will send urine, CBC, BMP. Discussed CT scan but patient reports just having 1 last month at [facility]. I was able to review the CT read from radiology at [facility]. This was apparently CTA of the abdomen pelvis presumably for his complaints of severe abdominal pain after eating. This is been an ongoing problem. There were no lesions/stenosis of the mesenteric arteries. There were bilateral renal cyst. Otherwise kidneys and bladder noted to be unremarkable. Patient's urine does dip positive for blood here but micro only reveals 0-2 red cells. CBC and chemistry normal. At this point will refer patient to Dr. Mata for further follow-up and evaluation. Likely simply related to the Eliquis but given history of bladder tumor and age probably warrants repeat cystoscopy. Return to ED for fever, flank or abdominal pain, gross hematuria, inability to urinate. Medical Records Medical records reviewed: Yes I reviewed the patient's medical records. Lab Data Lab results reviewed: Yes I reviewed the patient's lab results. HPI General Mode of arrival: ambulatory . Date/Time Provider Initiated Documentation: 06/06/20 16:48 . Limitations to Documentation: no limitations . Information obtained by: patient, RN notes reviewed and old records reviewed . HPI Narrative: Patient presents to ED with complaints of hematuria. Patient initially thought his urine was just a little darker than usual. He typically drinks at least a gallon of water a day. His urine is relatively dilute most of the time. Later in the day he realized that it was pink and not yellow. He has no gross hematuria. He denies fever or flank pain. He has no abdominal pain or urinary symptoms. He is on Eliquis for A. fib. He does report having a bladder tumor, about 10 years ago. This was subsequently found to be benign. He has not had follow-up since that time. Related Data Home Medications Medication Instructions Recorded Confirmed ammonium lactate 12 % lotion 1 applic TOPICAL BID PRN #225 gm 11/07/18 06/06/20 apixaban 5 mg tablet 5 mg PO BID #180 tab 01/07/20 06/06/20 enalapril maleate 10 mg tablet 10 mg PO DAILY #90 tab-cap 01/07/20 06/06/20 pravastatin 20 mg tablet 20 mg PO DAILY #90 tab-cap 01/07/20 06/06/20 dicyclomine 10 mg capsule 10 mg PO BID PRN #10 cap 02/11/20 06/06/20 Previous Rx's Medication Instructions Recorded apixaban 5 mg tablet 5 mg PO BID #180 tab 01/07/20 enalapril maleate 10 mg tablet 10 mg PO DAILY #90 tab-cap 01/07/20 pravastatin 20 mg tablet 20 mg PO DAILY #90 tab-cap 01/07/20 dicyclomine 10 mg capsule 10 mg PO BID PRN #10 cap 02/11/20 Allergies Allergy/AdvReac Type Severity Reaction Status Date / Time Sun Light AdvReac Unknown hives Uncoded 12/17/19 12:50 General Stated Complaint: Urinary FANNY: 3 Review of Systems Narrative: As documented in HPI otherwise negative as below. 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) Diverticula of colon (Acute) External hemorrhoids without complication (Acute) Former smoker (Acute 07/19/16) Walsh cardiac risk 10-20% in next 10 years (Acute 02/03/16) 19.2% before lipid therapy History of aortic valve replacement HTN (hypertension) Migraine Paroxysmal atrial fibrillation Poor dentition (Acute 01/19/15) Pure hypercholesterolemia (Acute 02/03/16) Smoker (Acute 01/19/15) Surgical History History of aortic valve replacement with bioprosthetic valve (Acute 01/21/13) 04/16/20 transthoracic echocardiogram at [facility] Hx of colonoscopy (Chronic) Orchidectomy, 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, testicular tumor Valve Replacement Family History Other Adopted Social History Smoking/Tobacco Use Status: Former Tobacco Use Alcohol Intake: current Alcohol Intake frequency: a few times a month Drug use: Never Substance use type: does not use Details: pt. reports he is an intermittent smoker and drinker Housing: apartment Pets and animals: Yes Pets and animals: cat(s) What type of physical activity do you participate in: walking Water heater temp set <120 deg: Yes Working smoke detector in home: Yes Carbon monox detector in home: Yes Do you feel safe at home: Yes Do you feel safe in your relationship?: Yes Additional Social history: Exam Narrative Exam Narrative: Vitals: Afebrile. Hypertensive otherwise normal vitals and normal room air pulse ox. Const: WDWN male in NAD. HEENT: NC/AT. Normal facial exam. Eyes: Normal conjunctiva and sclera. Neck: Supple. Trachea midline. Lungs: Normal respiratory effort. GI: Soft. NT/ND. No guarding or rebound. Back: No CVAT Neuro: A+O x 3. Normal speech, mentation, gait. Cranial nerves II - XII clifton sly intact. No gross motor or sensory deficit. Ext: No C/C/E. Course Vital Signs Vital signs: Vital Signs Temperature 99.0 F 06/06/20 16:24 Pulse 64 06/06/20 16:24 Respiratory Rate 18 06/06/20 16:24 Blood Pressure 159/103 H 06/06/20 16:24 Pulse Oximetry 98 06/06/20 16:24 Temperature 99.0 F 06/06/20 16:24 Temperature Source Temporal Artery Scan 06/06/20 16:24 Pulse 64 06/06/20 16:24 Respiratory Rate 18 06/06/20 16:24 Blood Pressure 159/103 H 06/06/20 16:24 Pulse Oximetry 98 06/06/20 16:24 Oxygen Delivery Method Room Air 06/06/20 16:24 Oxygen Flow Rate 0 06/06/20 16:24 Lab/Test Results Lab/Test Results: Laboratory Tests Range/Units 06/06/20 16:35 Urine Color (Yellow) Straw Urine Clarity (Clear) Clear Urine pH (5-8) 5.5 Ur Specific [place] (1.005-1.025) <= 1.005 Urine Protein (Negative) mg/dL Negative Urine Ketones (Negative) mg/dL Negative Urine Blood (Negative) Moderate H Urine Nitrite (Negative) Negative Urine Bilirubin (Negative) Negative Urine Urobilinogen (Up TO 0.2) EU/dL 0.2 Ur Leukocyte Esterase (Negative) Negative Urine Glucose (Negative) mg/dL Negative
[2020-06-06 16:57] LABS: Bacteria Negative HPF (Negative); C & S Indicated? No; Crystals Negative HPF (Negative); Epithelial Cells Negative HPF (Negative); Mucus Negative (Negative); RBC 0-2 HPF (0-2); WBC Negative HPF (0-5)
[2020-06-06 18:16] LABS: HCT 45.9 % (40.0-50.0); HGB 15.1 g/dL (13.5-17.5); MCH 29.6 pg (27.0-33.0); MCHC 32.9 % (32.0-36.0); MPV 11.5 fL (8.0-11.0); Platelet Count 146 10^3/uL (130-400); RDW 12.5 % (11.8-14.1); RDW-SD 41.5 fL; WBC 5.33 10^3/uL (4.4-10.8)
[2020-06-06 18:26] LABS: BUN 8 mg/dL (7-18); CREATININE 0.82 mg/dL (0.70-1.30); Calcium 9.6 mg/dL (8.5-10.1); Chloride 102 mmol/L (98-107); Glucose 93 mg/dL (74-106); Potassium 4.3 mmol/L (3.5-5.1); Sodium 139 mmol/L (136-145)
[2020-06-06 18:37] VITALS: BP 145/92; PULSE 99; RESP 18; O2SAT 100
== END 2020-06-06 19:50 | disposition home or self-care (01) ==
PROVIDERS: Emergency Provider Emergency Medicine; PCP Internal Medicine
DX: R31.29 Other microscopic hematuria (principal); Z79.01 Long term (current) use of anticoagulants; Z86.018 Personal history of other benign neoplasm; I10 Essential (primary) hypertension; I48.0 Paroxysmal atrial fibrillation
CPT/HCPCS: 36415; 80048; 85027; 99283; 81003; 81015

== ENCOUNTER 2020-06-29 01:04 | Outpatient (CLI) | payer MEDICARE, MEDICAID, SELFPAY ==
--- NOTE | 2020-06-29 14:00 | DI.CT_ITS ---
EXAM: CT ABDOMEN PELVIS W CLINICAL HISTORY: gross hematuria,R31.9 TECHNIQUE: COMPARISON: CT CHEST - LUNG CANCER SCREENING from 01/26/2018 FINDINGS: CT examination of the abdomen pelvis was performed with a bolus infusion of 100 cc of Omnipaque 350 [address] nd ingestion of dilute barium. Images obtained through the lung bases are unremarkable. The liver and spleen appear normal. There appears to be cholelithiasis and there is question of gall bladder wall edema. Correlation with abdominal ultrasound recommended. No biliary dilatation. Unre markable appearance of the pancreas. There are multiple low-attenuation well-circumscribed renal lesions seen bilaterally consistent with cysts. No urinary tract calcification. No hydronephrosis. Urinary bladder wall appears thickened w hich may represent chronic bladder outlet obstruction, cystitis not excluded. Appendix is nonvisualized but there is no specific evidence of appendicitis or diverticulitis. No ev idence of bowel obstruction. Abdominal aorta is of normal diameter and major visceral branches appear intact. No abdominal or pelvic adenopathy. No significant abdominal wall hernia seen, tiny bilateral fat con taining inguinal hernias noted. IMPRESSION: Cholelithiasis, question gallbladder wall edema, abdominal ultrasound recommended for further evaluat ion to assess the likelihood of cholecystitis. Multiple bilateral renal simple cysts. Urinary bladder wall thickening, chronic bladder outlet obstruction versus cystitis. Please correlat e clinically. RADIATION DOSE DELIVERED: 1,018.26mGy.cm Total DLP
[2020-06-29] MEDS: Omnipaque 350 MG/ML 50 ML BTL PO (14:02)
[2020-06-29] MEDS: Omnipaque 350 MG/ML 100 ML BTL IJ (14:31)
[2020-06-29] MEDS: Normal Saline - Diluent 50 ML VIAL IV (14:32)
== END 2020-06-29 01:24 ==
PROVIDERS: PCP Internal Medicine; Visit Provider Internal Medicine
DX: K80.20 Calculus of gallbladder without cholecystitis without obstruction (principal); N28.1 Cyst of kidney, acquired; R31.9 Hematuria, unspecified
CPT/HCPCS: 74177; J3490; Q9967

== ENCOUNTER 2021-02-04 01:50 | Outpatient (CLI) | payer MEDICARE, MEDICAID, SELFPAY ==
--- NOTE | 2021-02-04 13:52 | DI.CTLCSR_ITS ---
EXAM: CT CHEST LUNG CANCER SCREEN CLINICAL HISTORY: Screening for lung cancer,CURRENT SMOKER, F17.210. TECHNIQUE: Imaging Protocol: Low Dose Technique CONTRAST MATERIAL: None COMPARISON: CT CT CHEST LUNG CANCER SCREEN from 09/19/2019 FINDINGS: CHEST: LUNGS: In the right lower lobe there is a 3 millimeter pleural-based nodular density was which was no t seen previously. There are no other significant focal lung findings on either side. There are no pleural effusions.. No significant focal findings in the trachea and mainstem bronchi. There is no bronchiectasis. MEDIASTINUM: Sternotomy wires again noted. Surgical clips in the anterior mediastinum. No obvious h ilar nor mediastinal adenopathy. CARDIAC: Cardiomegaly. Prosthetic aortic valve again noted. No pericardial effusion.Caliber of the thoracic aorta is upper normal. OTHER: Probable cholelithiasis. Cyst in the upper pole the left kidney partially included in the fie ld of view. OSSEOUS: No significant osseous lesions.. IMPRESSION: 1. Compared to prior study of September 2019 there is now a 3 millimeter nodular density in the immedi ate subpleural region right lower lobe. Recommend follow-up in 6 months. 2. No pleural effusions. No obvious intrathoracic adenopathy. 3. Lung RADS Cat 3 - Probably Benign: Probably benign finding(s) - short term follow-up suggested; re peat CT scan in 6 months. Include nodules with a low likelihood of becoming a clinically active canc er. Lung-RADS 1.0 CATEGORIES: Category 0 - Prior chest CT exam(s) being located for comparison. Category 1 - Annual screening in 12 months. No nodules or definitely benign nodules. Category 2 - Annual screening in 12 months. Benign appearance. Nodules with low likelihood of becomin g active cancer. Category 3 - 6-month follow-up. Probably benign. Short-term follow-up suggested. Nodules with low lik elihood of becoming active cancer. Category 4A - 3-month follow-up and CT/PET if >8 mm in size. Suspicious finding. Findings which requi re additional testing. Category 4B - Findings which require additional testing and tissue sampling. Modifier S- Potentially clinically significant findings (non lung cancer) RADIATION DOSE DELIVERED: 81.43mGy.cm Total DLP 1.84mGy CTDIvol DATA REPOSITORY: All CT scans at this facility are submitted to the National Radiology Data Registry (NRDR) Dose Index Registry (DIR) with the [employer] (A[employer]). RADIATION OPTIMIZATION: All CT scans at this facility use at least one of these dose optimization te chniques: automated exposure control; mA and/or kV adjustment per patient size (includes targeted exa ms where dose is matched to clinical indication); or iterative reconstruction.
== END 2021-02-04 02:10 ==
PROVIDERS: PCP Internal Medicine; Visit Provider Internal Medicine
DX: Z12.2 Encounter for screening for malignant neoplasm of respiratory organs (principal); F17.210 Nicotine dependence, cigarettes, uncomplicated; R91.1 Solitary pulmonary nodule
CPT/HCPCS: 71271

== ENCOUNTER 2021-04-05 11:07 | Outpatient (REF) | payer MEDICARE, MEDICAID, SELFPAY | END 2021-04-05 11:08 | disposition home or self-care (01) | LOC: LBN 11:07 | PROVIDERS: PCP Internal Medicine; Visit Provider Nurse Practitioner | DX: R31.9 Hematuria, unspecified (principal) | CPT/HCPCS: 87086 ==

== ENCOUNTER 2021-04-06 16:25 | Outpatient (CLI) | payer MEDICARE, MEDICAID, SELFPAY ==
[2021-04-06 14:42] LABS: HCT 41.9 % (40.0-50.0); HGB 13.9 g/dL (13.5-17.5); MCHC 33.2 % (32.0-36.0); MCV 90.5 fL (80-95); MPV 10.9 fL (8.0-11.0); Platelet Count 135 10^3/uL (130-400); RBC 4.63 10^6/uL (4.36-5.78); RDW 12.5 % (11.8-14.1); RDW-SD 41.2 fL; WBC 5.04 10^3/uL (4.4-10.8)
[2021-04-06 15:58] LABS: Anion Gap 7.8 mmol/L (3-11); BUN 12 mg/dL (7-18); CO2 28.2 mmol/L (21.0-32.0); CREATININE 0.9 mg/dL (0.70-1.30); Calcium 9.2 mg/dL (8.5-10.1); Calculated LDL 105 mg/dL (<100); Chloride 102 mmol/L (98-107); Cholesterol 179 mg/dL (<200); Glucose 94 mg/dL (74-106); HDL Cholesterol 64 mg/dL (40-60); Potassium 3.9 mmol/L (3.5-5.1); Sodium 138 mmol/L (136-145); Triglyceride 50 mg/dL (<150)
== END 2021-04-06 16:26 | disposition home or self-care (01) ==
LOC: LBO 16:26
PROVIDERS: PCP Internal Medicine; Visit Provider Nurse Practitioner
DX: E78.00 Pure hypercholesterolemia, unspecified (principal); I10 Essential (primary) hypertension; R42 Dizziness and giddiness; R31.9 Hematuria, unspecified
CPT/HCPCS: 36415; 80048; 80061; 85027

== ENCOUNTER 2021-04-10 18:31 | Emergency (ER) | payer MEDICARE, MEDICAID, SELFPAY ==
[2021-04-10] VITALS (82 sets, daily range): BP systolic 126–190; BP diastolic 84–117; PULSE 48–61; RESP 11–29; TEMP 36.4; O2SAT 95–99
--- NOTE | 2021-04-10 18:15 | RT.EKG_ITS ---
APPROVED REPORT Exam: Resting ECG Reason for Exam: afib Patient Location: E HR:65 bpm ECG Measurements Heart Rate 65 AXIS ME 297 P 75 QRSd 133 QRS -58 QT 450 T 113 QTc 468 Conclusion Sinus rhythm...normal P axis, V-rate 60- 99 Prolonged ME interval...ME >220, V-rate 50- 90 Left bundle branch block...QRSd>120, broad/notched R
--- NOTE | 2021-04-10 18:37 | W.ED.GENAD ---
Discharge Plan Discharge Details Chief Complaint: Chest Pain Primary Care Provider: Karma Savage ED Provider: Juany Ruiz Home Meds and New Rx's Prescriptions: No Action propranolol 10 mg tablet 10 mg PO TID PRN (Reason: tachycardia) Qty: 30 RF: 0 Eliquis 5 mg tablet 5 mg PO BID Qty: 180 RF: 3 enalapril maleate 10 mg tablet 10 mg PO DAILY Qty: 90 RF: 3 pravastatin 20 mg tablet 20 mg PO DAILY Qty: 90 RF: 3 ammonium lactate 12 % lotion 1 applic topical QD-BID PRN (Reason: dry skin) Qty: 400 RF: 11 Medical Decision Making 70-year-old male with past medical history of aortic valve replacement with bioprosthetic valve, aortic stenosis, former smoker, paroxysmal atrial fibrillation, hypertension presents to the ED with a chief complaint of dizziness and shortness of breath. Patient states that this a.m. he was seen at [facility] for a atrial fibrillation episode where he became short of breath laid down outside the hospital. He was recommended to be transferred to [facility] for further cardiac evaluation from [facility] which he declined at that time. He did call cardiology at [facility] prior to arrival instructed him to follow-up and be seen at the closest hospital. He presents here the with no subsequent episodes of shortness of breath or dizziness denies any chest pain currently. He is hoping to be admitted to the hospital for further evaluation and work-up. [facility] records were requested on patient presentation. At this time cardiac work-up ordered including serial troponins I did discuss that patient may not be able to get an echocardiogram until Monday he does verbalize understanding of this. EKG was reviewed by Noelle Whitmore ER attending, please see her official report and review. Imaging protocol: XR of the chest. Views: 2 views. COMPARISON: CT CHEST LUNG CANCER SCREEN 02/04/2021 1:52 PM FINDINGS: Lungs: Unremarkable. No consolidation. Pleural spaces: Unremarkable. No pleural effusion. No pneumothorax. Heart/Mediastinum: Multiple mediastinal surgical clips. Prosthetic aortic valve. Left atrial enlargement. Bones/joints: Prior median sternotomy. Mild bilateral acromioclavicular joint degenerative disease. IMPRESSION: No acute cardiopulmonary abnormality. Thank you for allowing us to participate in the care of your patient. Dictated and Authenticated by: Nelson Slater MD 2021: Call made to [facility] Transfer center regarding patient, Cardiology to call back, per TC no available floor or Step down beds. Discussed with patient to confirm that he is open to being transferred he does state that he is willing to be transferred out if needed. Will consult with [facility] after speaking with [facility]. 2102: Spoke with [facility] transfer Center, No cardiology beds at this time. 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 2111: No beds at [place]. 2117: Call made to [facility] Transfer Center, only taking STEMI and TPA patients at this time. 2124: Will call our hospitalist Dr. Flores regarding possible admission until can be transferred out. 2139: Spoke with Dr. Flores He recommends discharge home with 14 day event monitor and Cardiology Follow up. 2212: Spoke with Dr. Savage with [facility] Cardiology who is concerned about patient going home, after discussing patient case and details he reccommends transfer to their facility rather than DC home. Accepting is Dr. Baltazar. Patient informed and is aware of plan. 2244: Plan for Transport TO [facility] by EMS. Medical Records Medical records reviewed: Yes I reviewed the patient's medical records. Medical records narrative: 1940: Fax from [facility] records received they did give him 2 g of magnesium sulfate while in the department. They did fax over 3 EKGs and rhythm strips. HPI General Mode of arrival: ambulatory. Date/Time Provider Initiated Documentation: 04/10/21 18:33. Limitations to Documentation: no limitations. Information obtained by: patient and RN notes reviewed. HPI Narrative: 70-year-old male with past medical history of aortic valve replacement with bioprosthetic valve, aortic stenosis, former smoker, paroxysmal atrial fibrillation, hypertension presents to the ED with a chief complaint of dizziness and shortness of breath. Patient states that this a.m. he was seen at [facility] for a atrial fibrillation episode where he became short of breath laid down outside the hospital. He was recommended to be transferred to [facility] for further cardiac evaluation from [place] which he declined at that time. He did call cardiology at [facility] prior to arrival instructed him to follow-up and be seen at the closest hospital. He presents here the with no subsequent episodes of shortness of breath or dizziness denies any chest pain currently. He is hoping to be admitted to the hospital for further evaluation and work-up. [facility] records were requested on patient presentation. Related Data Home Medications Medication Instructions Recorded Confirmed apixaban 5 mg tablet 5 mg PO BID #180 tab 12/29/20 04/10/21 enalapril maleate 10 mg tablet 10 mg PO DAILY #90 tab-cap 12/29/20 04/10/21 pravastatin 20 mg tablet 20 mg PO DAILY #90 tab-cap 12/29/20 04/10/21 propranolol 10 mg tablet 10 mg PO TID PRN #30 tab 12/30/20 04/10/21 ammonium lactate 12 % lotion 1 applic TOPICAL QD-BID PRN #400 g 02/03/21 04/10/21 Previous Rx's Medication Instructions Recorded apixaban 5 mg tablet 5 mg PO BID #180 tab 12/29/20 enalapril maleate 10 mg tablet 10 mg PO DAILY #90 tab-cap 12/29/20 pravastatin 20 mg tablet 20 mg PO DAILY #90 tab-cap 12/29/20 propranolol 10 mg tablet 10 mg PO TID PRN #30 tab 12/30/20 ammonium lactate 12 % lotion 1 applic TOPICAL QD-BID PRN #400 g 02/03/21 Allergies Allergy/AdvReac Type Severity Reaction Status Date / Time No Known Drug Allergies Allergy Unverified 04/10/21 18:38 Sun Light AdvReac Unknown hives Uncoded 04/05/21 10:19 General Stated Complaint: Chest Pain FANNY: 2 Review of Systems Narrative: Constitutional: Negative for weight loss, alert and oriented, well groomed, normal body habitus, appears comfortable. HEENT: Denies trauma, headaches, blurry vision, nasal discharge, sore throat, trouble swallowing. Chest: Denies chest pain, positive palpitations, shortness of breath, near syncope. Respiratory: Denies cough, hemoptysis. Positive shortness of breath. GI: Denies abdominal pain, nausea, vomiting, diarrhea, constipation. : Denies dysuria, flank pain, rectal bleeding. Does have a history of chronic hematuria. Neuro: Denies blurry vision, weakness, headache or facial numbness. Hematologic: Denies easy bruising, intolerance to heat or cold, hair loss. 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 reports he is an intermittent smoker and drinker Housing: apartment Pets and animals: Yes Pets and animals: cat(s) What type of physical activity do you participate in: walking Water heater temp set <120 deg: Yes Working smoke detector in home: Yes Carbon monox detector in home: Yes Do you feel safe at home: Yes Do you feel safe in your relationship?: Yes Exam Narrative Exam Narrative: Constitutional: Alert and oriented x3. Appears stated age. Normal body habitus. Head: Normocephalic, no trauma. Eyes: Pupils PERRLA, Red reflex noted, EOM's intact. Eyelids symmetrical without lesions, discharge, or swelling. ENT: Bilateral TM's WNL, External ear normal to inspection, no mastoid TTP, swelling, or erythema, Nasal turbinates WNL, no nasal discharge. Normal dentition, Posterior pharynx WNL, no exudate. Chest: Irregular rhythm noted on EKG prolonged IN interval, , distal pulses intact. Resp: Lungs clear to auscultation bilaterally, no wheezes, rales, or rhonchi. Abdomen: Soft, nondistended nontender to palpation all 4 quadrants. Musculoskeletal: Normal gait, 5/5 strength to all four extremities. Skin: No suspicious rashes or lesions. Capillary refill less than 2 sec. Neurologic: Cranial nerves II-XII intact. Alert and oriented x 3. DTR's intact. Hematologic/Lymphatic: No ecchymosis, no lymphadenopathy. Course Vital Signs Vital signs: Vital Signs Temperature 36.4 C L 04/10/21 18:30 Pulse 61 04/10/21 18:30 Respiratory Rate 16 04/10/21 18:30 Blood Pressure 190/117 H 04/10/21 18:30 Pulse Oximetry 96 04/10/21 18:30 Temperature 36.4 C L 04/10/21 18:30 Temperature Source Temporal Artery Scan 04/10/21 18:30 Pulse 61 04/10/21 18:30 Respiratory Rate 16 04/10/21 18:30 Blood Pressure 190/117 H 04/10/21 18:30 Pulse Oximetry 96 04/10/21 18:30 Oxygen Delivery Method Room Air 04/10/21 18:30 Oxygen Flow Rate 0 04/10/21 18:30 Pain Level 0 04/10/21 18:30
--- NOTE | 2021-04-10 18:45 | DI.RAD_ITS ---
Exam(s) XR CHEST 2V PA LATERAL EXAM: XR CHEST 2V PA LATERAL CLINICAL HISTORY: Near Syncope. TECHNIQUE: 2D digital imaging was performed. COMPARISON: CT CHEST - LUNG CANCER SCREENING from 01/26/2018 CT CHEST - LUNG CANCER SCREENING from 01/26/2018 CR PORTABLE CHEST ONE VIEW from 05/18/2018 FINDINGS: There is cardiomegaly with left atrial enlargement as seen on the lateral view. There is a prostheti c aortic valve. Sternotomy wires. Mediastinum is not widened. No infiltrates nor pleural effusions . No pulmonary edema. There is a small noncalcified nodular density measuring 4 millimeters in the left lung adjacent to the heart border.. There are no pleural effusions. No pulmonary edema. IMPRESSION: Cardiomegaly. Sternotomy. Prosthetic aortic valve. No pulmonary edema or pleural effusions. Possi ble small 4 millimeter nodule in the left lung. Appropriate follow-up recommended. DATA REPOSITORY: RADIATION DOSE DELIVERED:
[2021-04-10 19:06] LABS: Abs Immature Grans 0.01 10^3/uL (0.0-0.06); Absolute Basophil Count 0.03 10^3/uL (0.0-0.2); Absolute Eosinophil Count 0.04 10^3/uL (0.0-0.7); Absolute Lymphocyte Count 0.86 10^3/uL (1.2-3.4); Absolute Neutrophil Count 4.29 10^3/uL (1.2-6.7); Basophils % 0.5; Eosinophils % 0.7; HGB 13.6 g/dL (13.5-17.5); Immature Grans % 0.2; Lymphocytes % 15.6; MCH 29.4 pg (27.0-33.0); MCHC 33.2 % (32.0-36.0); MCV 88.7 fL (80-95); MPV 11.1 fL (8.0-11.0); Monocytes % 5.4; Neutrophils % 77.6; Nucleated RBC 0 %; Platelet Count 152 10^3/uL (130-400); RBC 4.62 10^6/uL (4.36-5.78); RDW 12.3 % (11.8-14.1); WBC 5.53 10^3/uL (4.4-10.8)
[2021-04-10 19:40] LABS: ALT 23 U/L (16-63); AST 18 U/L (15-37); Albumin 3.8 g/dL (3.4-5.0); Alkaline Phosphatase 32 U/L (46-116); Anion Gap 12.3 mmol/L (3-11); BUN 11 mg/dL (7-18); Bilirubin, Total 0.5 mg/dL (0.2-1.0); CO2 23.7 mmol/L (21.0-32.0); CREATININE 0.9 mg/dL (0.70-1.30); Chloride 105 mmol/L (98-107); Glucose 107 mg/dL (74-106); Magnesium 2.2 mg/dL (1.8-2.4); Potassium 4.2 mmol/L (3.5-5.1); Sodium 141 mmol/L (136-145); Total Protein 6.9 g/dL (6.4-8.2)
[2021-04-10 19:45] LABS: Troponin I < 0.05 ng/mL (<0.06)
[2021-04-10 19:46] LABS: INR 1.1 (0.9-1.1); Prothrombin Time 10.9 sec (9.3-11.0)
--- NOTE | 2021-04-10 19:50 | DI.VRAD_ITS ---
PROCEDURE INFORMATION: Exam: XR Chest Exam date and time: 04/10/2021 6:50 PM Age: 70 years old Clinical indication: Other: Tachycardia; Prior surgery TECHNIQUE: Imaging protocol: XR of the chest. Views: 2 views. COMPARISON: CT CHEST LUNG CANCER SCREEN 02/04/2021 1:52 PM FINDINGS: Lungs: Unremarkable. No consolidation. Pleural spaces: Unremarkable. No pleural effusion. No pneumothorax. Heart/Mediastinum: Multiple mediastinal surgical clips. Prosthetic aortic valve. Left atrial enlargement. Bones/joints: Prior median sternotomy. Mild bilateral acromioclavicular joint degenerative disease. IMPRESSION: No acute cardiopulmonary abnormality. Dictated and Authenticated by: Nelson Slater MD. Ordering:FRED Harrington MD
[2021-04-10] MEDS: Apixaban 5 MG TAB PO (20:49)
--- NOTE | 2021-04-10 21:30 | RT.EKG_ITS ---
APPROVED REPORT Exam: Resting ECG Reason for Exam: chest pain Patient Location: E HR:53 bpm ECG Measurements Heart Rate 53 AXIS GA 259 P 27 QRSd 135 QRS -55 QT 468 T 97 QTc 442 Conclusion Sinus bradycardia...rate< 60 Atrial premature complex...SV complex w/ short R-R interval Prolonged GA interval...GA >220, V-rate 50- 90 Left bundle branch block...QRSd>120, broad/notched R
[2021-04-10 22:06] LABS: Troponin I < 0.05 ng/mL (<0.06)
== END 2021-04-10 23:05 | disposition short-term general hospital (02) ==
PROVIDERS: Emergency Provider Registered Nurse Emergency; PCP Internal Medicine
DX: I47.2 Ventricular tachycardia (principal); I48.0 Paroxysmal atrial fibrillation; Z95.2 Presence of prosthetic heart valve
CPT/HCPCS: 36415; 80053; 87635; 93005; 99285; 71046; 83735; 84484; 85025; 85610; 93010

== ENCOUNTER 2021-06-16 13:27 | Outpatient (CLI) | payer MEDICARE, MEDICAID, SELFPAY ==
--- NOTE | 2021-06-16 13:30 | RT.EKG_ITS ---
APPROVED REPORT Exam: Resting ECG Reason for Exam: a fib Patient Location: O HR:48 bpm ECG Measurements Heart Rate 48 AXIS IN 266 P 21 QRSd 125 QRS -48 QT 458 T 99 QTc 410 Conclusion Sinus bradycardia...rate< 50 Atrial premature complex...SV complex w/ short R-R interval Prolonged IN interval...IN >230, V-rate 30- 49 Left bundle branch block...QRSd>120, broad/notched R Baseline wander in lead(s) V4
== END 2021-06-16 13:28 | disposition home or self-care (01) ==
LOC: DI.CARD 13:37
PROVIDERS: PCP Internal Medicine; Referring Provider Internal Medicine; Visit Provider Internal Medicine Cardiovascular Disease
DX: I47.2 Ventricular tachycardia (principal); I48.91 Unspecified atrial fibrillation
CPT/HCPCS: 93010

== ENCOUNTER → 2021-06-16 13:27 | Outpatient (BNVA) | payer MEDICARE, MEDICAID, SELFPAY | PROVIDERS: PCP Internal Medicine; Referring Provider Internal Medicine; Visit Provider Internal Medicine Cardiovascular Disease | DX: I47.2 Ventricular tachycardia (principal); I48.91 Unspecified atrial fibrillation | CPT/HCPCS: 93005; 93010; 99213 ==

== ENCOUNTER 2021-08-02 02:57 | Outpatient (CLI) | payer MEDICARE, MEDICAID, SELFPAY ==
[2021-08-02 13:56] LABS: Abs Immature Grans 0.02 10^3/uL (0.0-0.06); Absolute Basophil Count 0.03 10^3/uL (0.0-0.2); Absolute Eosinophil Count 0.09 10^3/uL (0.0-0.7); Absolute Lymphocyte Count 1.05 10^3/uL (1.2-3.4); Absolute Neutrophil Count 3.03 10^3/uL (1.2-6.7); Basophils % 0.6; Eosinophils % 1.9; HGB 13.6 g/dL (13.5-17.5); Immature Grans % 0.4; Lymphocytes % 22.7; MCH 28.7 pg (27.0-33.0); MCHC 31.6 % (32.0-36.0); MCV 90.7 fL (80-95); MPV 11.5 fL (8.0-11.0); Monocytes % 8.7; Neutrophils % 65.7; Nucleated RBC 0 %; Platelet Count 130 10^3/uL (130-400); RBC 4.74 10^6/uL (4.36-5.78); RDW 12.9 % (11.8-14.1); RDW-SD 42.5 fL; WBC 4.62 10^3/uL (4.4-10.8)
[2021-08-02 15:38] LABS: Anion Gap 7.5 mmol/L (3-11); BUN 11 mg/dL (7-18); CO2 30.5 mmol/L (21.0-32.0); Chloride 104 mmol/L (98-107); Glucose 93 mg/dL (74-106); Potassium 4.3 mmol/L (3.5-5.1); Sodium 142 mmol/L (136-145)
== END 2021-08-02 02:58 | disposition home or self-care (01) ==
PROVIDERS: PCP Internal Medicine; Visit Provider Internal Medicine Cardiovascular Disease
DX: I10 Essential (primary) hypertension (principal); I48.91 Unspecified atrial fibrillation
CPT/HCPCS: 36415; 80048; 85025

== ENCOUNTER 2021-10-11 04:30 | Outpatient (RCR) | payer MEDICARE, MEDICAID, SELFPAY ==
--- NOTE | 2021-10-11 11:30 | HOLTER_ITS ---
APPROVED REPORT Conclusion This was a 48-hour Holter monitor ordered for palpitations and atrial and ventricular dysrhythmias Predominant rhythm was sinus with an average heart rate of 62. Minimum was 48, maximum 130 There were rare ventricular ectopic beats There was no atrial fibrillation, no ventricular tachycardia, no high-grade AV block, no pauses great er than 3 seconds There were occasional to frequent atrial premature beats Several self-limited atrial runs were seen, the longest of which was 4 beats in duration No patient symptoms were reported
== END 2021-10-15 23:59 | disposition home or self-care (01) ==
LOC: RT 04:30
PROVIDERS: PCP Internal Medicine; Visit Provider Internal Medicine
DX: R00.2 Palpitations (principal); I49.8 Other specified cardiac arrhythmias; I49.1 Atrial premature depolarization
CPT/HCPCS: 93227; 93225; 93226

== ENCOUNTER 2021-10-20 13:29 | Outpatient (CLI) | payer MEDICARE, MEDICAID, SELFPAY ==
--- NOTE | 2021-10-20 13:45 | RT.EKG_ITS ---
APPROVED REPORT Exam: Resting ECG Reason for Exam: Office Vist Patient Location: O HR:67 bpm ECG Measurements Heart Rate 67 AXIS VT 252 P 63 QRSd 139 QRS -42 QT 435 T 111 QTc 460 Conclusion Sinus rhythm...normal P axis, V-rate 50- 99 Supraventricular bigeminy...bigeminy string>4 w/ SV complexes Prolonged VT interval...VT >220, V-rate 50- 90 Left bundle branch block...QRSd>120, broad/notched R
== END 2021-10-20 13:30 | disposition home or self-care (01) ==
LOC: DI.CARD 13:52
PROVIDERS: PCP Internal Medicine; Referring Provider Internal Medicine; Visit Provider Internal Medicine Cardiovascular Disease
DX: I10 Essential (primary) hypertension (principal); I47.2 Ventricular tachycardia; I48.91 Unspecified atrial fibrillation; Z86.79 Personal history of other diseases of the circulatory system; Z98.890 Other specified postprocedural states; I44.7 Left bundle-branch block, unspecified
CPT/HCPCS: 93010

== ENCOUNTER → 2021-10-20 13:29 | Outpatient (BNVA) | payer MEDICARE, MEDICAID, SELFPAY | PROVIDERS: PCP Internal Medicine; Referring Provider Internal Medicine; Visit Provider Internal Medicine Cardiovascular Disease | DX: I47.2 Ventricular tachycardia (principal); Z86.79 Personal history of other diseases of the circulatory system; I10 Essential (primary) hypertension; Z79.01 Long term (current) use of anticoagulants | CPT/HCPCS: 93005; 99214 ==

== ENCOUNTER 2022-01-03 03:24 | Outpatient (CLI) | payer MEDICARE, MEDICAID, SELFPAY ==
[2022-01-03 13:11] LABS: Anion Gap 5.5 mmol/L (3-11); BUN 12 mg/dL (7-18); CO2 29.5 mmol/L (21.0-32.0); Calcium 8.8 mg/dL (8.5-10.1); Calculated LDL 98 mg/dL (<100); Chloride 100 mmol/L (98-107); Cholesterol 164 mg/dL (<200); Glucose 93 mg/dL (74-106); HDL Cholesterol 54 mg/dL (40-60); Potassium 4.3 mmol/L (3.5-5.1); Sodium 135 mmol/L (136-145); Triglyceride 62 mg/dL (<150)
== END 2022-01-03 03:25 | disposition home or self-care (01) ==
LOC: LBO 03:24
PROVIDERS: PCP Internal Medicine; Visit Provider Internal Medicine
DX: I10 Essential (primary) hypertension (principal); E78.00 Pure hypercholesterolemia, unspecified
CPT/HCPCS: 36415; 80048; 80061

== ENCOUNTER → 2022-03-24 01:52 | Outpatient (CLI) | payer MEDICARE, MEDICAID, SELFPAY ==
--- NOTE | 2022-03-24 09:07 | DI.CTLCSR_ITS ---
Exam(s) CT CHEST LUNG CANCER SCREEN EXAM: CT CHEST LUNG CANCER SCREEN CLINICAL HISTORY: Screening for lung cancer, current smoker, F17.210. TECHNIQUE: Imaging Protocol: Low Dose Technique CONTRAST MATERIAL: None COMPARISON: CT CT CHEST LUNG CANCER SCREEN from 02/04/2021 FINDINGS: CHEST: LUNGS: In the right lung base lateral basal segment there is an unchanged small pleural based 2-3 mil limeter nodule again noted, unchanged. Slightly higher up in the right lower lobe is another tiny 2 millimeter unchanged pleural based density. There is mild infiltrate in the medial basal segment of the right lower lobe now evident. No pleural effusion. On the opposite-left side there are no significant focal findings. No pleural effusions on either si de. No new focal findings in the trachea and mainstem bronchi. MEDIASTINUM: There is no obvious hilar nor mediastinal adenopathy. CARDIAC: Sternotomy wires. Cardiomegaly.The diameter of the ascending thoracic aorta is is enlarged, measuring approximately 4.3 cm. OTHER: There is a finding in the superior aspect of the partially included left kidney which measures 4 point 5 x 5 cm. Probably a cyst but should undergo ultrasound for confirmation. OSSEOUS: No significant osseous lesions.. IMPRESSION: 1. New stable benign-appearing 2 millimeter pleural based nodules in the right lower lobe, unchanged from 02/04/2021. However, there now appears to be some mild infiltrate in the medial basal segment o f the right lower lobe, not previously present. No pleural effusions. No obvious intrathoracic gisela opathy. Recommend follow-up CT scan in 6 months. 2. Cardiomegaly. Sternotomy wires. Enlarged ascending thoracic aorta with diameter 4.3 cm. 3. Partially included left kidney finding as described above which should undergo ultrasound to ensur e that it is a simple cyst and not solid. Lung-RADS 1.0 CATEGORIES: Category 0 - Prior chest CT exam(s) being located for comparison. Category 1 - Annual screening in 12 months. No nodules or definitely benign nodules. Category 2 - Annual screening in 12 months. Benign appearance. Nodules with low likelihood of becomin g active cancer. Category 3 - 6-month follow-up. Probably benign. Short-term follow-up suggested. Nodules with low lik elihood of becoming active cancer. Category 4A - 3-month follow-up and CT/PET if >8 mm in size. Suspicious finding. Findings which requi re additional testing. Category 4B - Findings which require additional testing and tissue sampling. Category 4X - Category 3 or 4 nodules with additional features or imaging findings that increases the suspicion of malignancy. Modifier S- Potentially clinically significant findings (non lung cancer) RADIATION DOSE DELIVERED: 76.78mGy.cm Total DLP 1.84mGy CTDIvol DATA REPOSITORY: All CT scans at this facility are submitted to the National Radiology Data Registry (NRDR) Dose Index Registry (DIR) with the [employer] (ACR). RADIATION OPTIMIZATION: All CT scans at this facility use at least one of these dose optimization te chniques: automated exposure control; mA and/or kV adjustment per patient size (includes targeted exa ms where dose is matched to clinical indication); or iterative reconstruction.
== END ==
PROVIDERS: PCP Internal Medicine; Visit Provider Internal Medicine
DX: Z12.2 Encounter for screening for malignant neoplasm of respiratory organs (principal); R91.8 Other nonspecific abnormal finding of lung field; I51.7 Cardiomegaly; I77.89 Other specified disorders of arteries and arterioles; Z96.89 Presence of other specified functional implants; F17.210 Nicotine dependence, cigarettes, uncomplicated
CPT/HCPCS: 71271

== ENCOUNTER 2022-06-22 09:40 | Outpatient (CLI) | payer MEDICARE, MEDICAID, SELFPAY ==
--- NOTE | 2022-06-22 09:30 | RT.EKG_ITS ---
APPROVED REPORT Exam: Resting ECG Reason for Exam: afib Patient Location: O HR:73 bpm ECG Measurements Heart Rate 73 AXIS IL 251 P 12 QRSd 140 QRS -41 QT 420 T 112 QTc 463 Conclusion Sinus rhythm...normal P axis, V-rate 50- 99 Prolonged IL interval...IL >220, V-rate 50- 90 Left bundle branch block...QRSd>120, broad/notched R
== END 2022-06-22 09:41 | disposition home or self-care (01) ==
LOC: DI.CARD 09:41
PROVIDERS: PCP Internal Medicine; Visit Provider Internal Medicine Cardiovascular Disease
DX: I48.91 Unspecified atrial fibrillation (principal); Z86.79 Personal history of other diseases of the circulatory system; Z98.890 Other specified postprocedural states; R94.31 Abnormal electrocardiogram [ECG] [EKG]; I44.7 Left bundle-branch block, unspecified
CPT/HCPCS: 93010

== ENCOUNTER → 2022-06-22 13:27 | Outpatient (BNVA) | payer MEDICARE, MEDICAID, SELFPAY | PROVIDERS: PCP Internal Medicine; Referring Provider Internal Medicine; Visit Provider Internal Medicine Cardiovascular Disease | DX: I48.91 Unspecified atrial fibrillation (principal); I10 Essential (primary) hypertension; I47.2 Ventricular tachycardia; Z98.890 Other specified postprocedural states; Z86.79 Personal history of other diseases of the circulatory system | CPT/HCPCS: 93005; 99213 ==

== ENCOUNTER 2022-08-25 11:05 | Outpatient (CLI) | payer MEDICARE, MEDICAID, SELFPAY ==
--- NOTE | 2022-08-25 11:00 | RT.EKG_ITS ---
APPROVED REPORT Exam: Resting ECG Reason for Exam: h/o afib; new SOB Patient Location: O HR:68 bpm ECG Measurements Heart Rate 68 AXIS IN 251 P 258 QRSd 140 QRS -39 QT 447 T 103 QTc 476 Conclusion Sinus or ectopic atrial rhythm...P axis (-45,135) Atrial premature complex...SV complex w/ short R-R interval Prolonged IN interval...IN >220, V-rate 50- 90 Left bundle branch block...QRSd>120, broad/notched R
== END 2022-08-25 11:06 | disposition home or self-care (01) ==
LOC: DI.KIM 11:06
PROVIDERS: PCP Nurse Practitioner Adult Health; Visit Provider Nurse Practitioner Adult Health
DX: R06.02 Shortness of breath (principal); R94.31 Abnormal electrocardiogram [ECG] [EKG]; I44.7 Left bundle-branch block, unspecified; I49.1 Atrial premature depolarization
CPT/HCPCS: 93010

== ENCOUNTER → 2022-09-23 00:23 | Outpatient (CLI) | payer MEDICARE, MEDICAID, SELFPAY ==
--- NOTE | 2022-09-23 07:45 | DI.US_ITS ---
Exam(s) US RENAL EXAM: US RENAL CLINICAL HISTORY: 03/2022 F/U ABNL US L kidney abn,R93.429. TECHNIQUE: Hoskins scale, color and spectral Doppler were used. COMPARISON: CT CT ABDOMEN PELVIS W from 06/29/[address] CHEST LUNG CANCER SCREEN from 03/24/2022 FINDINGS: Renal size in cm: Right: 10.4. Left: 11.7. Echogenicity: Normal. Hydronephrosis: No. Cyst or mass: There are bilateral simple renal cysts. Nephrolithiasis: No. Other findings: There is a complex cystic lesion seen adjacent to the right kidney. It measures 4.2 x 4 x 3.8 cm. It is uncertain whether this arises from the kidney or possibly related to the liver o r gallbladder. Bladder:Normal. Ureteral jets: Right: Not visualized on this examination. Left: Not visualized on this examination. Prevoid vol:93 cc Postvoid vol:27 cc Prostate: 24 cc Renal color flow: Symmetric and within normal limits. IMPRESSION: 1. The finding in the left kidney on the CT scan from 03/24/2022 corresponds to a simple cyst. 2. Small postvoid urinary bladder volume. 3. Complex 4.2 x 4 x 3.8 cm lesion adjacent to the right kidney. It is uncertain whether this arises from the right kidney or is related to the liver or gallbladder. A CT scan of the abdomen and pelvi s with contrast is recommended for further evaluation. 4. Findings were discussed with Katelynn Buenrostro on 09/23/2022. DATA REPOSITORY:
--- NOTE | 2022-09-23 14:45 | DI.CT_ITS ---
Exam(s) CT CHEST/ABD/PEL W EXAM: CT CHEST/ABD/PEL W CLINICAL HISTORY: abn findings--radiology requested R93.429 ABNL RENAL US TECHNIQUE: Imaging Protocol: Axial computed tomography images with coronal and sagittal reformatted images were created and reviewed CONTRAST MATERIAL: Intravenous: Omnipaque 350 contrast volume:100 mL Oral: Yes COMPARISON: CT CT ABDOMEN PELVIS W from 06/29/[address] CHEST LUNG CANCER SCREEN from 03/24/2022 FINDINGS: The examination is limited due to patient motion artifact. CHEST: Tracheobronchial tree: Patent where visualized. Pulmonary parenchyma: No consolidation or dominant measurable mass. No architectural distortion. No n ew pulmonary nodules are present. Visualized thyroid gland: Unremarkable. Mediastinum and Yumiko: No dominant adenopathy or fluid collection. The esophagus is unremarkable. Pleura: No effusion or pneumothorax. Heart: The heart is not dilated. Mild coronary artery calcification. No pericardial effusion. Pulmonary arteries: The pulmonary arteries are inadequately opacified for evaluation of pulmonary emb gloria. Aorta: Thoracic aorta non-dilated. Mild atherosclerosis. Lymph nodes: Within normal limits. Soft tissues: Unremarkable. Bones:Within normal limits for the patient's age. Sternal wires are in place. ABDOMEN: Liver: Normal density. No measurable mass. Portal, Superior Mesenteric, and Splenic Veins: Unremarkable. Gallbladder and Biliary Tract: There is thickening of the wall of the gallbladder. Mild infiltration of the surrounding soft tissues is noted. Mild enhancement of the wall. Cystic changes are seen wi thin the wall of the gallbladder. There is no biliary ductal dilatation. Pancreas: Normal density, no abnormal calcifications or inflammatory process. Spleen: Normal. Adrenals: No masses seen. Kidneys: Normal size, contour and axis. No radiodense stones or obstructive uropathy. Bilateral renal cysts are present. The cysts appear simple. No suspicious solid renal masses are seen. Abdominal Aorta: Abdominal portion non-dilated. There is mild atherosclerosis. Bowel: No obstruction or bowel wall thickening. There is no evidence of appendicitis. There is diver ticulosis of the colon but no evidence of acute diverticulitis. Peritoneal Cavity: No ascites, collection or mesenteric inflammatory response. No free air. Lymph Nodes: Within normal limits. Bones: Within normal limits for the patient's age. Soft Tissues: There are bilateral fat containing inguinal hernias. PELVIS: Bladder: Symmetric distention, no gross wall thickening. Reproductive Organs: The prostate gland is enlarged. Lymph Nodes: Within normal limits. Bones: Within normal limits. IMPRESSION: 1. There is no acute pulmonary process. 2. Abnormal appearance of the gallbladder with gallbladder wall thickening and enhancement. Cystic c hanges are seen within the gallbladder wall. Mild infiltration is seen in the surrounding soft tissu es. There is no biliary ductal dilatation. While cholecystitis should be considered, a neoplastic p rocess of the gallbladder cannot be excluded. Gallbladder ultrasound and MRI of the abdomen without and with contrast is recommended for further evaluation in this patient. 3. Enlarged prostate gland. RADIATION DOSE DELIVERED: 1,315.57mGy.cm Total DLP DATA REPOSITORY: All CT scans at this facility are submitted to the National Radiology Data Registry (NRDR) Dose Index Registry (DIR) with the [employer] (ACR). RADIATION OPTIMIZATION: All CT scans at this facility use at least one of these dose optimization te chniques: automated exposure control; mA and/or kV adjustment per patient size (includes targeted exa ms where dose is matched to clinical indication); or iterative reconstruction.
[2022-09-23 16:01] LABS: Estimated GFR 81.47 (mL/min/1.73m2)
[2022-09-23] MEDS: Omnipaque 350 MG/ML 100 ML BTL IJ (16:04)
[2022-09-23] MEDS: Normal Saline Flush 10 ML SYR IVP (16:06)
--- NOTE | 2022-09-23 16:59 | DI.VRAD_ITS ---
PROCEDURE INFORMATION: Exam: CT Chest With Contrast; Diagnostic Exam date and time: 09/23/2022 4:03 PM Age: 71 years old Clinical indication: Other: Abn findings--radiology requested r93.429 abnl renal US; Prior surgery; Surgery date: 6+ months; Surgery type: Aorta valve replaced TECHNIQUE: Imaging protocol: Diagnostic computed tomography of the chest with contrast. 3D rendering (Not supervised by radiologist): MIP and/or 3D reconstructed images were created by the technologist. Radiation optimization: All CT scans at this facility use at least one of these dose optimization techniques: automated exposure control; mA and/or kV adjustment per patient size (includes targeted exams where dose is matched to clinical indication); or iterative reconstruction. Contrast material: OMNIPAQUE 350; Contrast volume: 100 ml; Contrast route: INTRAVENOUS (IV); Other contrast: Oral, gastro , 900; COMPARISON: CT CHEST LUNG CANCER SCREEN 03/24/2022 2:31 PM FINDINGS: Lungs: Unremarkable. No consolidation. No masses. Pleural spaces: Unremarkable. No pneumothorax. No pleural effusion. Heart: There is calcification of the mitral valve annulus. Aortic valve replacement Coronary arteries: Coronary artery calcifications may indicate coronary artery disease. Lymph nodes: Unremarkable. No enlarged lymph nodes. Vasculature: Unremarkable. No aortic aneurysm. Bones/joints: Median sternotomy Soft tissues: Unremarkable. IMPRESSION: No acute process PROCEDURE INFORMATION: Exam: CT Abdomen And Pelvis With Contrast Exam date and time: 09/23/2022 4:03 PM Age: 71 years old Clinical indication: Other: Abn findings--radiology requested r93.429 abnl renal US; Prior surgery; Surgery date: 6+ months; Surgery type: Aorta valve replaced TECHNIQUE: Imaging protocol: Computed tomography of the abdomen and pelvis with contrast. 3D rendering (Not supervised by radiologist): MIP and/or 3D reconstructed images were created by the technologist. Radiation optimization: All CT scans at this facility use at least one of these dose optimization techniques: automated exposure control; mA and/or kV adjustment per patient size (includes targeted exams where dose is matched to clinical indication); or iterative reconstruction. Contrast material: OMNIPAQUE 350; Contrast volume: 100 ml; Contrast route: INTRAVENOUS (IV); Other contrast: Oral, gastro , 900; COMPARISON: CT ABDOMEN PELVIS W 06/29/2020 2:53 PM FINDINGS: Liver: Normal. No mass. Gallbladder and bile ducts: Gallstone in the gallbladder. Gallbladder wall thickening . Recommend gallbladder ultrasound if clinically indicated. Pancreas: Normal. No ductal dilation. Spleen: Normal. No splenomegaly. Adrenal glands: Normal. No mass. Kidneys and ureters: Multiple cystic structures in both kidneys. Stomach and bowel: Unremarkable. No obstruction. No mucosal thickening. Appendix: No evidence of appendicitis. Intraperitoneal space: Unremarkable. No free air. No significant fluid collection. Vasculature: Unremarkable. No abdominal aortic aneurysm. Lymph nodes: Unremarkable. No enlarged lymph nodes. Urinary bladder: Unremarkable as visualized. Reproductive: The prostate is enlarged, greater than 5 cm. Recommend urology consult . Bones/joints: Unremarkable. No acute fracture. Soft tissues: Unremarkable. IMPRESSION: 1. Gallstone in the gallbladder. Gallbladder wall thickening . Recommend gallbladder ultrasound if clinically indicated. 2. The prostate is enlarged, greater than 5 cm. Recommend urology consult . Dictated and Authenticated by: Ann Valle MD. Ordering:LUIZ Pace MD
== END ==
PROVIDERS: PCP Nurse Practitioner Adult Health; Visit Provider Family Medicine
DX: N28.1 Cyst of kidney, acquired (principal)
CPT/HCPCS: 74177; 76770; 71260; 82565; J3490

== ENCOUNTER 2022-11-08 02:02 | Outpatient (CLI) | payer MEDICARE, MEDICAID, SELFPAY ==
--- NOTE | 2022-11-08 07:00 | DI.US_ITS ---
Exam(s) US ABDOMEN EXAM: US ABDOMEN CLINICAL HISTORY: ASSESS GB,F/U ABNL CT,R93.5 TECHNIQUE: Ultrasound of complete upper abdomen performed using standard protocol. COMPARISON: US US RENAL from 09/23/2022 FINDINGS: There is no ascites evident. LIVER: There are no hepatic lesions evident nor obvious dilatation of intrahepatic ducts. GALLBLADDER/BILIARY: Abnormal appearance with thickened heterogeneous wall, suspicious for possible a denomyomatosis versus neoplasm. No obvious shadowing calculi. Thickened wall. No pericholecystic fl uid The common hepatic duct isminimally prominent, measuring 7mm at the level of charlette hepatis. PANCREAS: There is no evidence of pancreatic mass nor dilatation of the pancreatic duct. SPLEEN: The spleen is not enlarged and there are no intrasplenic lesions evident. KIDNEYS:There is cysts in both kidneys measuring up to 5 cm . no solid renal masses. No calculi. No hydronephrosis. No perinephric fluid. ABDOMINAL AORTA: There is no evidence of abdominal aortic aneurysm. IVC: Normal diameter where visualized. IMPRESSION: 1. Abnormal appearance of the gallbladder suspicious for adenomyomatosis but cannot rule out maligna ncy. 2. No metastatic lesions seen in the liver. 3. Multiple benign cysts in the kidneys. DATA REPOSITORY:
[2022-11-08] MEDS: Gadoterate meglumine 20 ML VIAL IVP (12:16)
--- NOTE | 2022-11-08 12:45 | DI.MRI_ITS ---
Exam(s) MR ABDOMEN WO/W EXAM: MR ABDOMEN WO/W CLINICAL HISTORY: F/U ABNL CT,REASSESS GB, R93.5,R93.2 TECHNIQUE: Multiplanar multisequence MRI was performed with both pre and post contrast infused seque nces. Contrast injected sequences were performed following IV injection of 17 cc of Dotarem. COMPARISON: CT CT CHEST/ABD/PEL W from 09/23/2022 FINDINGS: VISUALIZED LUNG BASES: No pleural effusions evident. Cardiomegaly with aortic valve prosthesis and st ernotomy wires evident. There is no ascites evident. LIVER: Liver size is normal. There are no ominous focal hepatic lesions. No obvious dilated intrahe patic ducts. BILIARY: Gallbladder is significantly abnormal appearance with wall thickening and abnormal multiple mural cystic changes. Probably related to diffuse adenomyomatosis. No pericholecystic fluid. No obvious contiguous invasion of the liver. CBD diameter is upper normal.No dilated intrahepatic ducts. PANCREAS: There is no evidence of pancreatic mass nor dilatation of the pancreatic duct. SPLEEN: Spleen is not enlarged and there are no intrasplenic lesions.Splenic and portal veins are pat ent ADRENALS: There are no significant adrenal masses. KIDNEYS: Multiple cysts are noted in both kidneys, more numerous on the right side largest cyst is in the inferior pole of the right kidney and measures 4 by 3 cm. The largest cyst in the left kidney i s in the superior pole region and measures 3 by 2.5 cm. No solid renal masses. No hydronephrosis.No cysts evident. ABDOMINAL AORTA: Not enlarged and there is no significant para-aortic adenopathy. ANTERIOR ABDOMINAL WALL/GI: There is no evidence of significant anterior abdominal wall hernia in the field of view of this study.Is no evidence of obvious bowel obstruction. OSSEOUS: There are no lytic osseous lesions in the field of view of this study. IMPRESSION: 1. Gallbladder findings which are suspicious for diffuse adenomyomatosis. Cannot exclude subtle malig mayank. There is no pericholecystic fluid and there is no contiguous spread into the liver. No metasta tic lesions seen in the liver. The biliary tree is not dilated.. 2. No obvious focal abnormality in the pancreas. Pancreatic duct not dilated. 3. Multiple benign cysts in both kidneys. No solid renal masses. DATA REPOSITORY:
--- NOTE | 2022-11-08 15:13 | DI.VRAD_ITS ---
PROCEDURE INFORMATION: Exam: MR Abdomen Without and With Contrast Exam date and time: 11/08/2022 12:05 PM Age: 71 years old Clinical indication: Abnormal findings; Abnormal radiologic finding of the abdomen; Radiologic exam and body structure: CT abd/pel TECHNIQUE: Imaging protocol: Magnetic resonance imaging of the abdomen without and with contrast. Contrast material: DOTAREM; Contrast volume: 13 ml; Contrast route: INTRAVENOUS (IV); COMPARISON: CT CHEST/ABD/PEL W 09/23/2022 4:03 PM FINDINGS: Heart: Heart mildly enlarged. There are artifacts as in the region of the aorta, likely to the prosthetic aortic valve. There are median sternotomy wires. Liver: No mass. 0.8 cm cyst in the right kidney. Gallbladder and bile ducts: The wall of the fundus and body of the gallbladder contain multiple cystic intramural diverticula or cysts with lumen narrowing which give the vidhya necklace sign appearance , probably due to diffuse adenomyomatosis. The cystic regions within the mass are probably dilated Rokitansky-Aschoff sinuses. There is diffuse thickening of the gallbladder wall. Some of these cystic spaces have T1-hyperintensity on precontrast exam , probably due to inspissated bile/debris within Rokitansky-Aschoff sinuses. Some of these cystic spaces demonstrate low signal foci on the T2 weighted imaging in keeping with calculi or debris. There is no fluid surrounding the gallbladder.There is mild enhancement of the inner mucosa and mucosal lining along the cysts after administration of IV contrast. No gross invasiveness noted. The common bile duct is unremarkable. There is no intrahepatic biliary dilatation. Pancreas: Unremarkable. No ductal dilation. Spleen: Unremarkable. No splenomegaly. Adrenal glands: Unremarkable. No mass. Kidneys and ureters: There are multiple cysts in the bilateral kidneys. The right lower pole cyst measures up to 4.3 cm. The left upper pole cyst measures up to 2.6 cm. Stomach and bowel: Visualized stomach and intestines are unremarkable. Intraperitoneal space: No free fluid. Vasculature: No abdominal aortic aneurysm. Bones/joints: Mild levoscoliosis of the lumbar spine. Disc degenerative change with moderate loss of disc height at L4-L5. Soft tissues: Mild nonspecific edema in the right side of the erector spinae/posterior paraspinal soft tissues. IMPRESSION: 1. Wall of the fundus and body of the gallbladder contain multiple cystic intramural diverticula or cysts with lumen narrowing and diffuse thickening of the gallbladder wall which give the vidhya necklace sign appearance , and is probably diffuse adenomyomatosis. The cystic regions within the mass are probably dilated Rokitansky-Aschoff sinuses. Some of these cystic spaces have T1-hyperintensity on precontrast exam which might represent inspissated bile/debris within Rokitansky-Aschoff sinuses and which slightly limits the evaluation of the IV contrast. Additionally, some of these cystic spaces demonstrate low signal foci on the T2 weighted imaging which might represent calculi or debris. There is no fluid surrounding the gallbladder to suggest acute inflammation. Consider clinical correlation, if the patient has right upper quadrant pain. There is enhancement of the inner mucosa and mucosal lining along the cysts after administration of IV contrast. No gross invasiveness or masslike enhancement noted. No definite restricted diffusion to suggest malignant neoplasm. Consider follow-up MRI in 6 months for stability, if the patient does not have any acute symptoms. 2. The common bile duct is unremarkable. There is no intrahepatic biliary dilatation. No choledocholithiasis. 3. Cardiomegaly with aortic valve prosthesis. Dictated and Authenticated by: Raheel Brady MD. Ordering:LUIZ Pace MD
== END 2022-11-08 02:22 ==
LOC: DI 02:03
PROVIDERS: PCP Nurse Practitioner Adult Health; Visit Provider Nurse Practitioner Adult Health
DX: R93.5 Abnormal findings on diagnostic imaging of other abdominal regions, including retroperitoneum; K82.8 Other specified diseases of gallbladder; N28.1 Cyst of kidney, acquired
CPT/HCPCS: 74183; 76700

== ENCOUNTER 2023-01-17 01:20 | Outpatient (CLI) | payer MEDICARE, MEDICAID, SELFPAY ==
--- NOTE | 2023-01-17 07:45 | DI.MRI_ITS ---
Exam(s) MR ABDOMEN WO/W EXAM: MR ABDOMEN WO/W CLINICAL HISTORY: 2m F/U abnormal MRI abd,? [id number],d13.5,r93.2 TECHNIQUE: Multiplanar multisequence MRI of the Abdomen was performed. MRCP sequences also perform ed. CONTRAST MATERIAL: IV Contrast: 18 mL of Dotarem contrast administered. COMPARISON: CT CHEST - LUNG CANCER SCREENING from 01/26/[address] CHEST LUNG CANCER SCREEN from 09/19/[address] ABDOMEN PELVIS W from 06/29/[address] CHEST/ABD/PEL W from 09/23/2022 US US RENAL from 09/23/2022 MR MR ABDOMEN WO/W from 11/08/2022 US US ABDOMEN from 11/08/2022 FINDINGS: Liver: Unremarkable. Pancreas: Unremarkable. Gallbladder: Stable appearance of marked gallbladder wall thickening none multiple cysts within the g allbladder wall when compared with prior MRI and prior CT examinations. There is no evidence of inva dick into the surrounding fat or adjacent liver.. Gallbladder wall thickening can be demonstrated on the prior chest CTs back to 2018 although the evaluation is limited on these exams due to lack of IV contrast and low-dose technique. Bile Ducts: Unremarkable. Adrenals: Unremarkable. Kidneys: Multiple bilateral simple cysts. Spleen: Unremarkable. Aorta: Unremarkable. Soft Tissues: Unremarkable. Bone: Degenerative changes in the lower lumbar spine. Lymph Nodes: Unremarkable. Lung bases: Clear. Cardiomegaly. IMPRESSION: Stable appearance diffuse gallbladder wall thickening and multiple cysts within the gallbladder wall likely reflecting adenomyomatosis. Given lack of change since 2019, malignancy highly unlikely. DATA REPOSITORY:
[2023-01-17 13:04] LABS: Estimated GFR 80.97 (mL/min/1.73m2)
[2023-01-17] MEDS: Normal Saline - Diluent 50 ML VIAL 25 ML IJ (13:08)
[2023-01-17] MEDS: Gadoterate meglumine 20 ML VIAL 18 ML IVP (13:09)
== END 2023-01-17 01:40 ==
LOC: DI 01:21
PROVIDERS: PCP Nurse Practitioner Adult Health; Visit Provider Nurse Practitioner Adult Health
DX: D13.5 Benign neoplasm of extrahepatic bile ducts (principal); R93.5 Abnormal findings on diagnostic imaging of other abdominal regions, including retroperitoneum; K82.8 Other specified diseases of gallbladder; N28.1 Cyst of kidney, acquired
CPT/HCPCS: 74183; 82565

== ENCOUNTER 2023-01-25 16:06 | Outpatient (REF) | payer MEDICARE, MEDICAID, SELFPAY ==
[2023-01-25 20:00] LABS: Anion Gap 7.2 mmol/L (3-11); BUN 16 mg/dL (7-18); CO2 27.8 mmol/L (21.0-32.0); Calcium 9.4 mg/dL (8.5-10.1); Calculated LDL 99 mg/dL (<100); Chloride 99 mmol/L (98-107); Cholesterol 172 mg/dL (<200); Estimated GFR 80.97 (mL/min/1.73m2); Glucose 89 mg/dL (74-106); HDL Cholesterol 64 mg/dL (40-60); Potassium 4.6 mmol/L (3.5-5.1); Sodium 134 mmol/L (136-145); Triglyceride 47 mg/dL (<150)
[2023-01-26 12:22] LABS: Lab Add On Test DONE
[2023-01-26 12:46] LABS: TSH (W/Ref FT4) 2.37 uIU/mL (0.36-3.74)
== END 2023-01-25 16:07 | disposition home or self-care (01) ==
LOC: LBN 16:06
PROVIDERS: PCP Nurse Practitioner Adult Health; Referring Provider Nurse Practitioner Adult Health; Visit Provider Nurse Practitioner Adult Health
DX: I10 Essential (primary) hypertension (principal); E78.00 Pure hypercholesterolemia, unspecified; I48.91 Unspecified atrial fibrillation; F17.210 Nicotine dependence, cigarettes, uncomplicated; E87.1 Hypo-osmolality and hyponatremia
CPT/HCPCS: 80048; 80061; 84443

== ENCOUNTER 2023-07-19 13:00 | Outpatient (CLI) | payer MEDICARE, MEDICAID, SELFPAY ==
--- NOTE | 2023-07-19 13:00 | RT.EKG_ITS ---
APPROVED REPORT Exam: Resting ECG Reason for Exam: afib Patient Location: O HR:70 bpm ECG Measurements Heart Rate 70 AXIS NJ 241 P 243 QRSd 136 QRS -58 QT 430 T 95 QTc 464 Conclusion Sinus or ectopic atrial rhythm...P axis (-45,135) Prolonged NJ interval...NJ >220, V-rate 50- 90 LVH with IVCD, LAD and secondary repol abnrm...multi-criteria, wQRSd, abnr ST-T Anterolateral infarct, age indeterminate...Q >35mS, flat/neg T, V3-V6,I,aVL
== END 2023-07-19 13:01 | disposition home or self-care (01) ==
LOC: DI.CARD 13:01
PROVIDERS: PCP Nurse Practitioner Adult Health; Visit Provider Internal Medicine Cardiovascular Disease
DX: I48.91 Unspecified atrial fibrillation (principal)
CPT/HCPCS: 93010

== ENCOUNTER → 2023-07-19 13:30 | Outpatient (BNVA) | payer MEDICARE, MEDICAID, SELFPAY | PROVIDERS: PCP Internal Medicine; Referring Provider Internal Medicine; Visit Provider Internal Medicine Cardiovascular Disease | DX: Z79.01 Long term (current) use of anticoagulants (principal); Z95.2 Presence of prosthetic heart valve; I48.91 Unspecified atrial fibrillation; Z98.890 Other specified postprocedural states; I10 Essential (primary) hypertension; Z86.79 Personal history of other diseases of the circulatory system | CPT/HCPCS: 93005 ==

== ENCOUNTER → 2023-07-25 00:50 | Outpatient (CLI) | payer MEDICARE, MEDICAID, SELFPAY ==
--- NOTE | 2023-07-25 15:29 | DI.US_ITS ---
APPROVED REPORT EXAM: Comprehensive 2D, Doppler, and color-flow Echocardiogram Patient Location: Out-Patient Radiopharmacist: Chloe Francois RDCS ([facility]) Indications: SOB, Diastolic murmur, Bio AVR, Atrial Fibrillation with RVR Other Information Study Quality: Adequate Conclusion Moderate concentric left ventricular hypertrophy. Ejection fraction is 60%. Wall motion is normal Normal right ventricular size and systolic function Both atria are moderately enlarged There is a bioprosthetic aortic valve with mild paravalvular regurgitation. There is severe aortic s tenosis. Peak gradient is 92, mean 45 mmHg. Calculated aortic valve area is 1.5 cm?? Mildly thickened mitral leaflets. There is moderate to severe mitral regurgitation Normal tricuspid valve with mild to moderate regurgitation. Estimated right ventricular systolic pre ssure is 49 mmHg Wall motion Left Ventricle The left ventricle is normal size. The left ventricular systolic function is normal. The left ventric ular ejection fraction is within the normal range. Moderate concentric left ventricular hypertrophy. There is normal LV segmental wall motion. There is no ventricular septal defect visualized. LVEF is 6 0%. Right Ventricle Right ventricle is grossly normal in size. Right ventricular systolic function is grossly normal. Atria Left atrium is moderately dilated. Right atrium is moderately dilated. The interatrial septum is inta ct with no evidence for an atrial septal defect. Aortic Valve Bioprosthetic aortic valve Severe aortic stenosis. Highest mean aortic valve gradient is 44.7mmHg. Pe ak aortic valve gradient is 91.97mmHg. Calculated aortic valve area 1.5 cm?? Mild paravalvular aortic regurgitation. Mitral Valve Mitral valve leaflets are mildly thickened. No evidence of mitral valve stenosis. Moderate to severe mitral regurgitation. Tricuspid Valve The tricuspid valve is normal in structure. There is no tricuspid valve stenosis. Mild to moderate t ricuspid regurgitation. The RVSP is 48.9mmHg. Pulmonic Valve The pulmonary valve is normal in structure. There is no pulmonic valvular stenosis. Trace to mild pul baljeet regurgitation. Great Vessels The aortic root is normal in size. The ascending aorta is normal in size. Aortic arch is normal in ca liber. The IVC collapses <50% with inspiration. Pericardium There is no pericardial effusion. 2D Dimensions IVSD d PLAX 1.48 cm M: 0.6-1.2 Ao Root d 2.92 cm M: 3.1 - 3.7 LVPW d PLAX 1.46 cm M: 0.6 - 1.2 Ao Asc Diam d 3.46 cm M: 2.6 - 3.4 LVID d PLAX 5.22 cm M: 4.2 - 5.8 LVDs 3.60 cm M: 2.5 - 4.0 LV EF Teichholz 58.4 % FS 31.10 % LV EDV (Teich) 130.9 mL LV ESV (Teich) 54.4 mL M-Mode TAPSE 2.29 cm (M/F) >1.7 Auto EF LV EDV A4C 197.4 mL LV EDV A2C 209.3 mL LV EDV BP 200.8 mL LV ESV A4C 70.9 mL LV ESV A2C 82.3 mL LV ESV BP 74.6 mL LVEF(%) A4C 64.1 % LVEF(%) A2C 60.7 % LVEF(%) BP 62.9 % LV SV A4C 126.5 ml LV SV A2C 127.0 ml LV SV BP 126.2 ml LV CO A4C 8.1 L/min LV CO A2C 7.9 L/min LV CO BP 8.0 L/min HR A4C 64.06 BPM HR A2C 62.50 BPM LV EDV Index (BP) LA Volume LA Length A4C 6.5 cm LA Length A2C 6.6 cm LA Area A4C s 33.10 cm2 LA Area A2C s 29.75 cm2 LA Vol A4C A-L 142.12 mL LA Vol A2C A-L 113.60 mL LA Vol Biplane A-L 127.7 mL LA Vol/BSA A4C A-L LA Vol/BSA A2C A-L LA Vol/BSA BP A-L 66.2 mL/m2 LA Vol A4C MOD 135.0 mL LA Vol A2C MOD 106.0 mL LA Vol BP MOD 119.9 mL RA Volume RA Area A4C 28.0 cm2 RA ESV A4C (A-L) 96.2mL RA Vol/BSA A4C A-L RA Length A4C 6.9 cm RA ESV A4C (MOD) 91.7mL LV Diastology MV E' medial 0.055 (>0.07 m/s) MV E Vmax 0.96 (0.4-1.3 m/s) MV E/E' MED 17.33 (<14) MV A Vmax 0.40 (0.4-1.3 m/s) MV E' lateral 0.149 (>0.1 m/s) E/A Ratio 2.4 MV E/E' LAT 6.43 (<14) MV E' Average 0.102 m/s MV E/E'(average) 9.38 Aortic Valve AoV Vmax 4.80 m/s LVOT Vmax 1.43 m/s AoV Peak Grad 84.7 mmHg LVOT Peak Grad 8.1 mmHg AoV Area (Vmax) 1.09 cm2 LVOT VTI 0.367 m AoV VTI 0.922 m LVOT Mean Grad 5.7 mmHg AoV Mean Stone. 2.94 m/s LVOT SV 134.25 mL AoV Mean Grad 44.7 mmHg LVOT Diam s 2.15 cm AoV Area (VTI) 1.46 cm2 AV Regurg Peak Gr. 77.40 mmHg Velocity Ratio 0.30 AR Decel Twiggs 3.2m/sec2 AR DT 1372 msec AR PHT 398 msec AR Vmax 4.40 m/s Mitral Valve MV DT 155 (160-240 msec) MV Vmax TIPS 1.18 m/s MV Mean Grad 2.0 (<2mmHg) MV VTI 0.384 m Pulmonary Valve PV Vmax 0.63 (0.5-1.5 m/s) RVOT Vmax 0.65 m/s PV Peak Grad 1.6 mmHg RVOT Peak Gr. 1.7 mmHg PV Mean Stone 0.41 m/s RVOT VTI 0.115 m PV Mean Grad 0.8 mmHg RVOT Mean Gr. 0.8 mmHg Tricuspid Valve RA Pressure 8.00 mmHg TR Vmax 3.20 m/s TV S' 0.11 m/s TR Peak Grad 40.9 mmHg RVSP (TR) 48.9 mmHg
== END ==
PROVIDERS: PCP Nurse Practitioner Adult Health; Visit Provider Internal Medicine Cardiovascular Disease
DX: I48.91 Unspecified atrial fibrillation (principal)
CPT/HCPCS: 93306

== ENCOUNTER → 2023-08-11 00:46 | Outpatient (CLI) | payer MEDICARE, MEDICAID, SELFPAY ==
--- NOTE | 2023-08-11 08:15 | DI.CTLCSR_ITS ---
Exam(s) CT CHEST LUNG CANCER SCREEN EXAM: CT CHEST LUNG CANCER SCREEN CLINICAL HISTORY: Screening for lung cancer,current smoker, F17.210 TECHNIQUE: Imaging Protocol: Axial computed tomography images with coronal and sagittal reformatted images were created and reviewed. Low dose screening protocol. COMPARISON: CT CT CHEST/ABD/PEL W from 09/23/2022 FINDINGS: Tracheobronchial tree: No bronchiectasis or mucus plugging.. Mediastinum and Yumiko: No dominant adenopathy or fluid collection. Pulmonary parenchyma: Exam somewhat limited by respiratory motion. Lungs also somewhat expiratory. No consolidation or dominant measurable mass. No visible emphysematous changes. Lung Nodules: 4 millimeter perifissural nodule near the confluence on the right. Pleura: Trace bilateral pleural effusions, similar to prior. No pneumothorax. Heart: The heart is dilated. A normal coronary artery calcifications are seen. Mediastinal clips. Aortic valve prosthesis. Aorta: Thoracic aorta non-dilated. Upper abdomen: Gallbladder shows wall thickening, unchanged from prior. Bones: Sternal wires. Soft Tissues: Unremarkable. IMPRESSION: No suspicious pulmonary nodules. Lung RADS Cat 2 - Benign Appearance / Behavior: Nodules with a very low likelihood of becoming a clin ically active cancer due to size or lack of growth Lung-RADS 1.0 CATEGORIES: Category 0 - Prior chest CT exam(s) being located for comparison. Category 1 - Annual screening in 12 months. No nodules or definitely benign nodules. Category 2 - Annual screening in 12 months. Benign appearance. Nodules with low likelihood of becomin g active cancer. Category 3 - 6-month follow-up. Probably benign. Short-term follow-up suggested. Nodules with low lik elihood of becoming active cancer. Category 4A - 3-month follow-up and CT/PET if >8 mm in size. Suspicious finding. Findings which requi re additional testing. Category 4B - Findings which require additional testing and tissue sampling. Category 4X - Category 3 or 4 nodules with additional features or imaging findings that increases the suspicion of malignancy. Modifier S- Potentially clinically significant findings (non lung cancer) RADIATION DOSE DELIVERED: Total DLP DATA REPOSITORY: All CT scans at this facility are submitted to the National Radiology Data Registry (NRDR) Dose Index Registry (DIR) with the [employer] (A[employer]). RADIATION OPTIMIZATION: All CT scans at this facility use at least one of these dose optimization te chniques: automated exposure control; mA and/or kV adjustment per patient size (includes targeted exa ms where dose is matched to clinical indication); or iterative reconstruction.
== END ==
PROVIDERS: PCP Nurse Practitioner Adult Health; Visit Provider Nurse Practitioner Adult Health
DX: F17.210 Nicotine dependence, cigarettes, uncomplicated; Z12.2 Encounter for screening for malignant neoplasm of respiratory organs
CPT/HCPCS: 71271

== ENCOUNTER 2023-10-06 14:16 | Emergency (ER) | payer MEDICARE, MEDICAID, SELFPAY ==
--- NOTE | 2023-10-06 14:15 | RT.EKG_ITS ---
APPROVED REPORT Exam: Resting ECG Reason for Exam: Dyspnea Patient Location: E HR:81 bpm ECG Measurements Heart Rate 81 AXIS NJ 287 P 69 QRSd 153 QRS -50 QT 439 T 91 QTc 502 Conclusion Sinus rhythm...normal P axis, V-rate 60- 99 Atrial premature complex...SV complex w/ short R-R interval Prolonged NJ interval...NJ >220, V-rate 50- 90 Left bundle branch block...QRSd>120, broad/notched R ST elevation secondary to IVCD...Multiple VCG criteria There are no significant changes compared to prior EKG performed on 08/25/2022 at 12:19.
[2023-10-06 14:17] VITALS: BP 196/78; PULSE 84; RESP 14; TEMP 36.7; O2SAT 100
--- NOTE | 2023-10-06 14:17 | W.ED.GENAD ---
Discharge Plan Disposition Patient Disposition: Home Condition: Stable Discharge Details Clinical Impression: Aortic stenosis, Dyspnea Primary Care Provider: Katelynn Rollins ED Provider: Cedric Monreal Home Meds and New Rx's Prescriptions: Continued latanoprost 0.005 % drops 1 drp ophthalmic (eye) QPM Rx Instructions: 1 GTT OU qhs ammonium lactate 12 % cream 1 applic topical BID Qty: 280 5RF Rx Instructions: apply thin film to both heels and lower shins twice a day Eliquis 5 mg tablet 5 mg PO BID Qty: 180 3RF pravastatin 20 mg tablet 20 mg PO DAILY Qty: 90 3RF lisinopril-hydrochlorothiazide 20-12.5 mg tablet 1 tab PO DAILY Qty: 90 3RF ammonium lactate 12 % lotion 1 applic topical DAILY Rx Instructions: Apply at least once daily to the feet--Derm note 09/28/23 Discharge Instructions Additional Instructions: You were seen for an episode of shortness of breath. This may have been related to elevated blood pressure. However, as we discussed getting better control of your blood pressure may result in fainting or syncope related to your valve stenosis. After discussion with cardiology at [facility] we will not make any changes to your medication regimen. Would recommend taking it easy over the next couple weeks until you are scheduled for your procedure. If you have any chest pain, shortness of breath, syncope, lightheadedness, other concerns you should return to the ED once. Medical Decision Making Patient presenting to ED with onset of shortness of breath this afternoon. Is due for a new aortic valve within the next couple of weeks. After developing shortness of breath became anxious which likely compounded his feeling of shortness of breath. Saturations at home per him were 93%. For EMS and ferocity is 100% on room air. Automated blood pressure markedly elevated. Manual blood pressure 140s over 70s. His EKG is sinus rhythm with prolonged AK and left bundle branch block not significantly different from previous. Lungs are clear to auscultation. He does have a loud murmur heard throughout. He is in no distress and speaking in full sentences. Will obtain laboratory studies and chest x-ray, observe for any changes. Do not suspect PE as he has no pain, no tachycardia and is anticoagulated for his A-fib with Eliquis twice a day. Patient has returned back to baseline. He has remained 100% on room air and has been ambulatory in the department without any difficulty or shortness of breath. Laboratory studies show a mild anemia. Mild hyponatremia with a sodium of 130 which she has history of. He has normal kidney function. Magnesium a little low at 1.7. His BNP is 1099. Troponin is negative. Chest x-ray per radiology with cardiomegaly no acute pulmonary process and no edema. I reviewed his echo from July. He has severe aortic stenosis which is why he is requiring a new valve. He had preserved ejection fraction. Reached out and spoke to cardiology coverage at [facility]. Specifically discussed changing medications for better blood pressure control given the elevated pressures he initially had. Unfortunately, lowering his blood pressure too much may result in syncope. Given that he has normalized and his blood pressure is better here it is felt that we should stay the course and have him take it easy over the next couple weeks pending his valve replacement. He should have a low threshold to return to the emergency department for syncope, lightheadedness, chest pain, shortness of breath in which case he may need to be transferred to [facility] to bridge him and expedite the valve replacement. I have discussed this at length with the patient who is in agreement with the plan. He will be discharged home and has strict return precautions. Follow-up with [facility] as planned. Medical Records Medical records reviewed: Yes I reviewed the patient's medical records. Lab Data Lab results reviewed: Yes I reviewed the patient's lab results. ECG Data Attestation: I personally reviewed and interpreted this ECG (s) as follows: Prior ECG tracings: available for review Interpretation: See EKG HPI General Mode of arrival: EMS. Date/Time Provider Initiated Documentation: 10/06/23 14:17. Limitations to Documentation: no limitations. Information obtained by: patient, RN notes reviewed and old records reviewed. HPI Narrative: Patient presents to ED with onset of shortness of breath couple of hours ago. Reports prior history of aortic valve replacement due for new valve within the next couple of weeks. Developed shortness of breath this afternoon and had to lay down to rest. Pulse oximetry at home was reading 93%. He spoke with cardiology at [facility] who referred him into the ED. Patient denies feeling lightheaded or weak and denies syncope. He denies any type of chest pain or pressure. He was well earlier in the day and has had no URI type symptoms. He denies any cough. He denies back pain or abdominal pain. He was on the phone with tech-support when he became short of breath. Still feels somewhat short of breath but better than he did earlier. He has a history of atrial fibrillation and is on Eliquis twice a day. Related Data Home Medications Medication Instructions Recorded Confirmed latanoprost 0.005 % eye drops 1 drp ophthalmic (eye) QPM glaucoma 01/26/22 10/06/23 apixaban 5 mg tablet (Eliquis) 5 mg PO BID #180 tabs 12/26/22 10/06/23 pravastatin 20 mg tablet 20 mg PO DAILY #90 tab-caps 12/26/22 10/06/23 ammonium lactate 12 % topical cream 1 applic topical BID #280 grams 01/25/23 10/06/23 lisinopril 20 1 tab PO DAILY #90 tabs 04/06/23 10/06/23 mg-hydrochlorothiazide 12.5 mg tablet ammonium lactate 12 % lotion 1 applic topical DAILY 09/29/23 10/06/23 Previous Rx's Medication Instructions Recorded apixaban 5 mg tablet (Eliquis) 5 mg PO BID #180 tabs 12/26/22 pravastatin 20 mg tablet 20 mg PO DAILY #90 tab-caps 12/26/22 ammonium lactate 12 % topical cream 1 applic topical BID #280 grams 01/25/23 lisinopril 20 1 tab PO DAILY #90 tabs 04/06/23 mg-hydrochlorothiazide 12.5 mg tablet Allergies Allergy/AdvReac Type Severity Reaction Status Date / Time Sun Light AdvReac Unknown hives Uncoded 07/26/23 11:50 General FANNY: 2 Review of Systems Narrative: Per HPI PFSH All Active Problems (Updated 10/06/23 @ 17:10 by Cedric Monreal MD) Dyspnea (Acute) Aortic stenosis (Chronic) External hemorrhoids without complication (Acute) Constipation (Acute) Arthritis of shoulder (Acute 07/30/14) Normal cystoscopy (Acute) for evaluation gross hematuria. [place]23 [facility] [place]yst[place] w/ Dr. Partida (- cysto). Abnormal magnetic resonance imaging of abdomen (Acute ~10/2022) Adenomyomatosis of gallbladder (Acute ~10/2022) Abnormal CT scan, gallbladder (Acute ~09/2022) Abnormal CT of the abdomen (Acute ~09/2022) Gallbladder Abnormal CT scan, kidney (Acute ~03/2022) L kidney on CT-chest--Partially included left kidney finding as described above which should undergo ultrasound to ensure that it is a simple cyst and not solid. 09/2022--simple cyst (renal US) Xerosis of skin (Acute) [facility] [place]09[place]28/23 S/P aortic valve replacement with bioprosthetic valve (Acute) [facility]07[place]/23 Weight loss (Acute) Hyponatremia (Acute ~2021) Nicotine use disorder (Chronic) Atrial fibrillation with RVR (Chronic) Solitary pulmonary nodule on lung CT (Acute ~01/2021) Essential hypertension (Chronic 05/27/13) [place] cardiac risk 10-20% in next 10 years (Acute 02/03/16) 19.2% before lipid therapy Poor dentition (Chronic 01/19/15) Medical History BPH (benign prostatic hyperplasia) (~2022) Stable & discharged urology Pure hypercholesterolemia (02/03/16) Anxiety about health Wide-complex tachycardia Diverticula of colon Advanced directives, counseling/discussion (05/07/19) Chronic headache Smoker (01/19/15) Paroxysmal atrial fibrillation (04/15/17) 04/12/18 [facility] (referred by Dr Jerry) Hyperkeratosis of sole (02/03/16) HTN (hypertension) Migraine Surgical History S/P ablation of atrial fibrillation (08/05/21) and atrial flutters [facility] [place] History of aortic valve replacement with bioprosthetic valve (01/21/13) 04/16/20 [place]acic [place] [facility] [place] [facility] Family History Other Adopted Social History Smoking/Tobacco Use Status: Current-Occasional Tobacco Type: cigarettes Smoking risk assessment performed?: Yes Alcohol Intake: current Alcohol Intake frequency: a few times a month Drug use: Never Substance use type: does not use Details: pt. 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 Pets and animals: Yes Pets and animals: cat(s) Sexually active: No Do you think of yourself as: straight/heterosexual Current gender identity: male What is your relationship status?: How often do you talk on the phone with friends or family?: never How often do you get together with friends or relatives?: never Do you belong to any clubs or organized social groups?: no Panel score (0-1 are the most socially isolated patients): 0 What type of physical activity do you participate in: walking Duration: 45-60 minutes/day Frequency: 3-4 times per week Seatbelt use: always Helmet use: Yes Helmet use: always Drive intox or ride w/intox electric train driver: No Water heater temp set <120 deg: Yes Working smoke detector in home: Yes Carbon monox detector in home: Yes Do you feel safe at home: Yes Do you feel safe in your relationship?: Yes Exam Narrative Exam Narrative: Const: WDWN male in NAD. HEENT: NC/AT. Normal facial exam. Eyes: Normal conjunctiva and sclera. Neck: Supple. Trachea midline. Lungs: Normal respiratory effort. Lungs are clear. Cor: RRR with loud murmur. Good radial pulses. GI: Soft. NT/ND. Neuro: A+O x 3. Normal speech, mentation. Cranial nerves II - XII grossly intact. No gross motor or sensory deficit. Ext: No C/C/E. Skin: Warm and dry without rash.
[2023-10-06 14:21] VITALS: BP 196/78; PULSE 80; RESP 14; TEMP 36.7; O2SAT 100
[2023-10-06 14:42] VITALS: BP 142/78; PULSE 82; RESP 14; O2SAT 100
[2023-10-06 14:42] LABS: Abs Immature Grans 0.01 10^3/uL (0.0-0.06); Absolute Basophil Count 0.03 10^3/uL (0.0-0.2); Absolute Eosinophil Count 0.05 10^3/uL (0.0-0.7); Absolute Monocyte Count 0.34 10^3/uL (0.1-0.8); Absolute Neutrophil Count 3.51 10^3/uL (1.2-6.7); Basophils % 0.6; Eosinophils % 1.1; HCT 37.3 % (40.0-50.0); HGB 12.5 g/dL (13.5-17.5); Immature Grans % 0.2; Lymphocytes % 16.9; MCHC 33.5 % (32.0-36.0); MCV 87 fL (80-95); MPV 12.9 fL (8.0-11.0); Monocytes % 7.2; Platelet Count 123 10^3/uL (130-400); RBC 4.31 10^6/uL (4.36-5.78); RDW 13.2 % (11.8-14.1); RDW-SD 41.4 fL; WBC 4.74 10^3/uL (4.4-10.8)
[2023-10-06 15:05] LABS: ALT 26 U/L (16-63); AST 30 U/L (15-37); Albumin 3.8 g/dL (3.4-5.0); Alkaline Phosphatase 38 U/L (46-116); Anion Gap 9.9 mmol/L (3-11); BUN 12 mg/dL (7-18); Bilirubin, Total 0.6 mg/dL (0.2-1.0); CO2 25.1 mmol/L (21.0-32.0); Calcium 8.8 mg/dL (8.5-10.1); Chloride 95 mmol/L (98-107); Estimated GFR 80.97 (mL/min/1.73m2); Glucose 105 mg/dL (74-106); Magnesium 1.7 mg/dL (1.8-2.4); NT-proBNP 1099 pg/mL (<300); Potassium 3.7 mmol/L (3.5-5.1); Sodium 130 mmol/L (136-145); Total Protein 7.2 g/dL (6.4-8.2); Troponin I < 50 ng/L (<or=60)
--- NOTE | 2023-10-06 15:23 | DI.RAD_ITS ---
Exam(s) XR CHEST 2V PA LATERAL EXAM: XR CHEST 2V PA LATERAL CLINICAL HISTORY: SOB. TECHNIQUE: 2D digital imaging was performed. COMPARISON: CR,XR XR CHEST 2V PA LATERAL from 04/10/2021 FINDINGS: 2 views: Again noted are sternotomy wires and a prosthetic cardiac valve. Cardiomegaly. Mediastinum not widened. Lungs are clear. No infiltrates nor pleural effusions. Previously described small nodule in the left lung is less evident on the present study. No infiltra adilson nor pleural effusions. No pulmonary edema. No fractures. IMPRESSION: No acute pulmonary findings. Cardiomegaly. Sternotomy. Prosthetic aortic valve. DATA REPOSITORY: RADIATION DOSE DELIVERED:
[2023-10-06 17:22] VITALS: BP 142/88; PULSE 82; RESP 14; O2SAT 99
== END 2023-10-06 17:24 | disposition home or self-care (01) ==
PROVIDERS: Emergency Provider Emergency Medicine; PCP Nurse Practitioner Adult Health
DX: I35.0 Nonrheumatic aortic (valve) stenosis (principal); R06.09 Other forms of dyspnea; I51.7 Cardiomegaly; I44.7 Left bundle-branch block, unspecified; I48.0 Paroxysmal atrial fibrillation; I10 Essential (primary) hypertension; Z95.2 Presence of prosthetic heart valve; Z79.899 Other long term (current) drug therapy
CPT/HCPCS: 36415; 80053; 93005; 99283; 71046; 83735; 83880; 84484; 85025; 93010

== ENCOUNTER 2023-10-16 12:17 | Emergency (ER) | payer MEDICARE, MEDICAID, SELFPAY ==
[2023-10-16] VITALS (19 sets, daily range): BP systolic 167–212; BP diastolic 62–76; PULSE 63–81; RESP 12–26; TEMP 36.9; O2SAT 97–100
--- NOTE | 2023-10-16 12:15 | RT.EKG_ITS ---
APPROVED REPORT Exam: Resting ECG Reason for Exam: sob Patient Location: E HR:69 bpm ECG Measurements Heart Rate 69 AXIS NJ 251 P -74 QRSd 153 QRS -40 QT 446 T 106 QTc 479 Conclusion Sinus or ectopic atrial rhythm...P axis (-45,135) Prolonged NJ interval...NJ >220, V-rate 50- 90 Left bundle branch block...QRSd>120, broad/notched R ST elevation secondary to IVCD...Multiple VCG criteria Sinus rhythm at a rate of 69 with first-degree A-V block and left bundle branch block. NJ 251 ms. N ot meeting modified Powell nor Mariella criteria for ischemia. Appears similar to prior dated last m [facility].
--- NOTE | 2023-10-16 12:44 | ED.GENADUL_ITS ---
Discharge Plan Disposition Patient Disposition: Home Discharge Details Clinical Impression: MOREIRA (dyspnea on exertion) Primary Care Provider: Katelynn Rollins ED Provider: Jarrod Hernandez Home Meds and New Rx's Prescriptions: Continued latanoprost 0.005 % drops 1 drp ophthalmic (eye) QPM Rx Instructions: 1 GTT OU qhs ammonium lactate 12 % cream 1 applic topical BID Qty: 280 5RF Rx Instructions: apply thin film to both heels and lower shins twice a day Eliquis 5 mg tablet 5 mg PO BID Qty: 180 3RF pravastatin 20 mg tablet 20 mg PO DAILY Qty: 90 3RF lisinopril-hydrochlorothiazide 20-12.5 mg tablet 1 tab PO DAILY Qty: 90 3RF ammonium lactate 12 % lotion 1 applic topical DAILY Rx Instructions: Apply at least once daily to the feet--Derm note 09/28/23 Discharge Instructions Instructions: Dyspnea (ED) Additional Instructions: You were seen in the emergency department for your shortness of breath. Your blood work showed no sign of heart attack. You are blood work shows that your kidneys are working well. If you develop worsening shortness of breath chest pain or if you pass out please return to the emergency department.Otherwise please follow-up with your cardiothoracic team as previously scheduled later this week. HPI General Date/Time Provider Initiated Documentation: 10/16/23 12:43 . HPI Narrative: MDM This is an overall very well-appearing markedly hypertensive 72-year-old male with history of aortic stenosis and moderate regurgitation now with dyspnea on exertion but no signs of acute CHF. Will obtain basic labs to ensure patient do es not have myocardial injury. His ECG is nonischemic. He has no pain out of proportion to suggest necrotizing soft tissue infection. No significant volume overload to suggest benefit from nitroglycerin as my suspicion for symptomatic pulmonary edema is low. No recent cough nor fevers to suggest pneumonia. No history of trauma to suggest pneumothorax. No history of emesis to suggest esophageal rupture. Of note patient was previously hypertensive last month during ED visit at [facility]. Cardiology [facility] was consulted but no medication adjustments were made. Given his hydrochlorothiazide use will assess basic electrolytes. Given no syncope my suspicion for dysrhythmia is low. 2:10 PM CBC shows no leukocytosis. Mild improved normocytic anemia. Thrombocytopenia slightly worse compared to prior. Basic metabolic panel showing no JOANNA. Mild hyperglycemia but no anion gap. Normal bicarbonate??not consistent with DKA. Mild hyponatremia improved compared to prior. Negative troponin. proBNP elevated similar to prior dated last month. 2:30 PM I spoke with Dr. Vela from cardiology at [facility]. She advised that the patient's exam sounded reassuring. She advised that if the patient's blood pressure was greater than 170 mmHg systolically that it would not be unreasonable to increase his lisinopril to 40 mg daily from 20 mg and continue his hydrochlorothiazide at 12.5 mg. However if his blood pressure was back in the 140s to 150s systolically she advised no medication adjustments given surgery is to 3 days. Currently the patient's blood pressure is 157/93. Will repeat troponin and discharge if negative. 4:15 PM Repeat troponin negative. Patient's blood pressure improved and as result will defer medication adjustment at this point time as he has been up and ambulatory and somewhat anxious in the emergency department and I do not want to overtreat his hypertension. Patient understood his return indications and we will proceed with an empiric trial of expectant outpatient management. Chronic conditions affecting the care of the patient: Aortic stenosis History obtained from an outside historian: N/A External record review: [facility] EMR [Diagnostic interpretations performed by me: Per my independent interpretation chest x-ray shows: No acute cardiopulmonary process Per my independent interpretation EKG shows: Sinus rhythm at a rate of 69 with first-degree A-V block and left bundle branch block. FL 251 ms. Not meeting modified Powell nor [place] criteria for ischemia. Appears similar to prior dated last month. Medications: N/A Social determinants of health affecting disposition: N/A Management discussed with: Cardiology at [facility] Treatment/interventions considered: Diuresis but deferred given no signs of heart failure Response to therapies provided: N/A HPI This is a 72-year-old male with a history of hypertension, paroxysmal atrial fibrillation on apixaban, tobacco use, bicuspid aortic stenosis with concomitant ascending aortic replacement with plan for SAVR in 3 days to the emergency department in the setting of dyspnea on exertion. Patient reports that for the past 3 months he has had shortness of breath on exertion. He called cardiology today as he has been more aware of his shortness of breath when he walks a mile. Cardiology advised ED assessment. His shortness of breath is not persistent at rest. He has not had any lower extremity swelling. He has not had any recent chest pain fevers cough nausea nor vomiting. He does endorse daily tobacco use. He denies routine ethanol and illicits. He has not taken any falls. He has been taking his medications as scheduled. He is due to take his lisinopril hydrochlorothiazide in the evening today. No recent syncope. Exam General: Well-appearing in no acute distress speaking in complete sentences. Sitting upright reading a book. Head: Normocephalic, atraumatic. Eye: Extraocular eye movements intact. No conjunctival injection. No scleral icterus. Ear, nose, mouth, throat: Grossly normal inspection. Normal voice, handling secretions normally. Neck: Trachea midline. Cardiovascular: Well-perfused distal extremities. 4 out of 6 systolic ejection murmur. Respiratory: Nonlabored respiration. Clear lungs bilaterally. Gastrointestinal: Nondistended abdomen. Soft nontender. Musculoskeletal: No significant lower extremity pitting edema. Moving all 4 extremities spontaneously. Skin: Normal for age and race, grossly normal temperature and turgor. No acute rash. Neurologic: Alert and appropriate, no apparent acute deficits. Psychiatric: Mood and manner are appropriate. Grooming and personal hygiene are appropriate. Related Data Home Medications Medication Instructions Recorded Confirmed latanoprost 0.005 % eye drops 1 drp ophthalmic (eye) QPM glaucoma 01/26/22 10/16/23 apixaban 5 mg tablet (Eliquis) 5 mg PO BID #180 tabs 12/26/22 10/16/23 pravastatin 20 mg tablet 20 mg PO DAILY #90 tab-caps 12/26/22 10/16/23 ammonium lactate 12 % topical cream 1 applic topical BID #280 grams 01/25/23 10/16/23 lisinopril 20 1 tab PO DAILY #90 tabs 04/06/23 10/16/23 mg-hydrochlorothiazide 12.5 mg tablet ammonium lactate 12 % lotion 1 applic topical DAILY 09/29/23 10/16/23 Previous Rx's Medication Instructions Recorded apixaban 5 mg tablet (Eliquis) 5 mg PO BID #180 tabs 12/26/22 pravastatin 20 mg tablet 20 mg PO DAILY #90 tab-caps 12/26/22 ammonium lactate 12 % topical cream 1 applic topical BID #280 grams 01/25/23 lisinopril 20 1 tab PO DAILY #90 tabs 04/06/23 mg-hydrochlorothiazide 12.5 mg tablet Allergies Allergy/AdvReac Type Severity Reaction Status Date / Time Sun Light AdvReac Unknown hives Uncoded 10/16/23 12:38 General Stated Complaint: SOB FANNY: 2 PFSH All Active Problems (Updated 10/16/23 @ 14:12 by Jarrod Hernandez MD) MOREIRA (dyspnea on exertion) (Acute) Dyspnea (Acute) Aortic stenosis (Chronic) External hemorrhoids without complication (Acute) Constipation (Acute) Arthritis of shoulder (Acute 07/30/14) Normal cystoscopy (Acute) for evaluation gross hematuria. 01/16/23 [facility] note- Cystoscopy w/ Dr. Partida (- cysto). Abnormal magnetic resonance imaging of abdomen (Acute ~10/2022) Adenomyomatosis of gallbladder (Acute ~10/2022) Abnormal CT scan, gallbladder (Acute ~09/2022) Abnormal CT of the abdomen (Acute ~09/2022) Gallbladder Abnormal CT scan, kidney (Acute ~03/2022) L kidney on CT-chest--Partially included left kidney finding as described above which should undergo ultrasound to ensure that it is a simple cyst and not solid. 09/2022--simple cyst (renal US) Xerosis of skin (Acute) [facility] Derm Note-09/28/23 S/P aortic valve replacement with bioprosthetic valve (Acute) [facility] Cardio-07/31/23 Weight loss (Acute) Hyponatremia (Acute ~2021) Nicotine use disorder (Chronic) Atrial fibrillation with RVR (Chronic) Solitary pulmonary nodule on lung CT (Acute ~01/2021) Essential hypertension (Chronic 05/27/13) [place] cardiac risk 10-20% in next 10 years (Acute 02/03/16) 19.2% before lipid therapy Poor dentition (Chronic 01/19/15) Medical History BPH (benign prostatic hyperplasia) (~2022) Stable & discharged urology Pure hypercholesterolemia (02/03/16) Anxiety about health Wide-complex tachycardia Diverticula of colon Advanced directives, counseling/discussion (05/07/19) Chronic headache Smoker (01/19/15) Paroxysmal atrial fibrillation (04/15/17) 04/12/18 had appointment with [facility] (referred by Dr Jerry) Hyperkeratosis of sole (02/03/16) HTN (hypertension) Migraine Surgical History S/P ablation of atrial fibrillation (08/05/21) and atrial flutters [facility] Hx of colonoscopy History of aortic valve replacement with bioprosthetic valve (01/21/13) 04/16/20 transthoracic echocardiogram at [facility] Valve Replacement Orchidectomy, 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 Pets and animals: Yes Pets and animals: cat(s) Sexually active: No Do you think of yourself as: straight/heterosexual Current gender identity: male What is your relationship status?: How often do you talk on the phone with friends or family?: never How often do you get together with friends or relatives?: never Do you belong to any clubs or organized social groups?: no Panel score (0-1 are the most socially isolated patients): 0 What type of physical activity do you participate in: walking Duration: 45-60 minutes/day Frequency: 3-4 times per week Seatbelt use: always Helmet use: Yes Helmet use: always Drive intox or ride w/intox chassis driver: No Water heater temp set <120 deg: Yes Working smoke detector in home: Yes Carbon monox detector in home: Yes Do you feel safe at home: Yes Do you feel safe in your relationship?: Yes Course Vital Signs Vital signs: Vital Signs Temperature 36.9 C 10/16/23 12:22 Pulse 72 10/16/23 12:22 Respiratory Rate 16 10/16/23 12:22 Blood Pressure 212/65 H 10/16/23 12:22 Pulse Oximetry 97 10/16/23 12:22 Temperature 36.9 C 10/16/23 12:22 Pulse 72 10/16/23 12:22 Respiratory Rate 16 10/16/23 12:41 Respiratory Effort Normal 10/16/23 12:41 Respiratory Depth Normal 10/16/23 12:41 Blood Pressure 212/65 H 10/16/23 12:22 Pulse Oximetry 97 10/16/23 12:22 Oxygen Delivery Method Room Air 10/16/23 12:22 Oxygen Flow Rate 0 10/16/23 12:22
--- NOTE | 2023-10-16 13:00 | DI.RAD_ITS ---
Exam(s) XR CHEST 2V PA LATERAL EXAM: XR CHEST 2V PA LATERAL CLINICAL HISTORY: Dyspnea on exertion TECHNIQUE: 2D digital imaging was performed. COMPARISON: CR XR CHEST 2V PA LATERAL from 10/06/2023 FINDINGS: HEART: Enlarged. Aortic valve prosthesis. Aorta: Not dilated. PULMONARY VASCULATURE: Normal. LUNGS: Clear. PLEURAL SPACE: No pleural effusion or pneumothorax. BONE:Sternal wires. Soft tissues: Unremarkable. IMPRESSION: No acute abnormality. DATA REPOSITORY: RADIATION DOSE DELIVERED:
[2023-10-16 13:45] LABS: Abs Immature Grans 0.01 10^3/uL (0.0-0.06); Absolute Basophil Count 0.04 10^3/uL (0.0-0.2); Absolute Eosinophil Count 0.03 10^3/uL (0.0-0.7); Absolute Lymphocyte Count 0.76 10^3/uL (1.2-3.4); Absolute Monocyte Count 0.35 10^3/uL (0.1-0.8); Absolute Neutrophil Count 3.56 10^3/uL (1.2-6.7); Basophils % 0.8; Eosinophils % 0.6; HCT 39.9 % (40.0-50.0); HGB 13.1 g/dL (13.5-17.5); Immature Grans % 0.2; MCHC 32.8 % (32.0-36.0); MCV 88 fL (80-95); MPV 13.9 fL (8.0-11.0); Monocytes % 7.4; Platelet Count 112 10^3/uL (130-400); RBC 4.52 10^6/uL (4.36-5.78); RDW 13.2 % (11.8-14.1); RDW-SD 42.8 fL; WBC 4.75 10^3/uL (4.4-10.8)
[2023-10-16 14:03] LABS: Anion Gap 10.6 mmol/L (3-11); BUN 19 mg/dL (7-18); CO2 26.4 mmol/L (21.0-32.0); Calcium 9.4 mg/dL (8.5-10.1); Chloride 98 mmol/L (98-107); Estimated GFR 80.97 (mL/min/1.73m2); Glucose 108 mg/dL (74-106); NT-proBNP 1100 pg/mL (<300); Potassium 4.2 mmol/L (3.5-5.1); Sodium 135 mmol/L (136-145); Troponin I < 50 ng/L (<or=60)
--- NOTE | 2023-10-16 14:46 | DI.VRAD_ITS ---
PROCEDURE INFORMATION: Exam: XR Chest Exam date and time: 10/16/2023 1:58 PM Age: 72 years old Clinical indication: Other: Dyspnea on exertion; Prior surgery; Surgery date: 6+ months; Surgery type: Open heart; Patient HX: Scheduled for hear surgery this week TECHNIQUE: Imaging protocol: Radiologic exam of the chest. Views: 2 views. COMPARISON: CR XR CHEST 2V PA LATERAL 10/06/2023 3:18 PM FINDINGS: Lungs: Unremarkable. No consolidation. Pleural spaces: Unremarkable. No pleural effusion. No pneumothorax. Heart/Mediastinum: Prosthetic heart valve. CABG. Stable cardiomegaly. Bones/joints: Median sternotomy wires. IMPRESSION: No acute cardiopulmonary findings. Dictated and Authenticated by: Ciro Ulloa MD. Ordering:DACIA Garay MD
--- NOTE | 2023-10-16 15:17 | NUR.NOTE ---
Nursing Note: patient declines to wear tele wires and have BP taken frequently. Educated PT on the importance of monitoring PT still declines
[2023-10-16 16:08] LABS: Troponin I < 50 ng/L (<or=60)
--- NOTE | 2023-10-16 16:15 | NUR.NOTE ---
Nursing Note: patient declines discharge VS
== END 2023-10-16 16:19 | disposition home or self-care (01) ==
PROVIDERS: Emergency Provider Emergency Medicine; PCP Nurse Practitioner Adult Health
DX: R06.09 Other forms of dyspnea (principal); I44.0 Atrioventricular block, first degree; I44.7 Left bundle-branch block, unspecified; I48.0 Paroxysmal atrial fibrillation; I10 Essential (primary) hypertension; F17.210 Nicotine dependence, cigarettes, uncomplicated; Z95.2 Presence of prosthetic heart valve; Z79.01 Long term (current) use of anticoagulants
CPT/HCPCS: 80048; 93005; 99284; 71046; 83880; 84484; 85025; 93010

== ENCOUNTER → 2023-11-22 13:56 | Outpatient (BNVA) | payer MEDICARE, MEDICAID, SELFPAY | PROVIDERS: PCP Nurse Practitioner Adult Health; Referring Provider Nurse Practitioner Adult Health; Visit Provider Internal Medicine Cardiovascular Disease | DX: Z95.0 Presence of cardiac pacemaker (principal) | CPT/HCPCS: 93280 ==

== ENCOUNTER → 2024-02-14 13:55 | Outpatient (BNVA) | payer MEDICARE, MEDICAID, SELFPAY | PROVIDERS: PCP Nurse Practitioner Adult Health; Referring Provider Nurse Practitioner Adult Health; Visit Provider Internal Medicine Cardiovascular Disease | DX: Z95.0 Presence of cardiac pacemaker (principal); I10 Essential (primary) hypertension | CPT/HCPCS: 93284 ==

== ENCOUNTER 2024-02-21 17:22 | Outpatient (REF) | payer MEDICARE, MEDICAID, SELFPAY ==
[2024-02-21 19:10] LABS: Anion Gap 8.3 mmol/L (3-11); BUN 13 mg/dL (7-18); CO2 29.7 mmol/L (21.0-32.0); CREATININE 0.9 mg/dL (0.70-1.30); Calcium 9.9 mg/dL (8.5-10.1); Calculated LDL 103 mg/dL (<100); Chloride 100 mmol/L (98-107); Cholesterol 193 mg/dL (<200); Estimated GFR 91.31 (mL/min/1.73m2); Glucose 92 mg/dL (74-106); HDL Cholesterol 77 mg/dL (40-60); Sodium 138 mmol/L (136-145); Triglyceride 69 mg/dL (<150)
== END 2024-02-21 17:23 | disposition home or self-care (01) ==
LOC: LBN 17:22
PROVIDERS: PCP Nurse Practitioner Adult Health; Visit Provider Nurse Practitioner Adult Health
DX: I10 Essential (primary) hypertension (principal); Z91.89 Other specified personal risk factors, not elsewhere classified; I48.91 Unspecified atrial fibrillation; E87.1 Hypo-osmolality and hyponatremia
CPT/HCPCS: 80048; 80061

== ENCOUNTER → 2024-07-17 12:53 | Outpatient (BNVA) | payer MEDICARE, MEDICAID, SELFPAY | PROVIDERS: PCP Nurse Practitioner Adult Health; Visit Provider Internal Medicine Cardiovascular Disease | DX: Z95.810 Presence of automatic (implantable) cardiac defibrillator (principal) | CPT/HCPCS: 93280 ==

== ENCOUNTER 2024-09-24 00:55 | Outpatient (CLI) | payer MEDICARE, MEDICAID, SELFPAY ==
--- NOTE | 2024-09-24 07:30 | DI.CTLCSR_ITS ---
Exam(s) CT CHEST LUNG CANCER SCREEN EXAM: CT CHEST LUNG CANCER SCREEN CLINICAL HISTORY: Screening for lung cancer,CURRENT SMOKER, F17.210,PULMONARY NODULE TECHNIQUE: Imaging Protocol: Axial computed tomography images with coronal and sagittal reformatted images were created and reviewed. Low dose screening protocol. COMPARISON: CT CT CHEST LUNG CANCER SCREEN from 03/24/[address] CHEST LUNG CANCER SCREEN from 08/11/2023 FINDINGS: Tracheobronchial tree: No bronchiectasis or mucus plugging. Mediastinum and Yumiko: No dominant adenopathy or fluid collection. Mediastinal clips related to CABG . Pulmonary parenchyma: Evaluation is somewhat limited due to respiratory motion no consolidation or do minant measurable mass. No visible emphysematous changes. No significant interstitial changes. Lung Nodules: Stable right perifissural nodule at the confluence of the fissures. Stable 3 millimete r pleural-based nodule right lower lobe. Pleura: No effusion. No pneumothorax. Heart: The heart is moderately dilated. Aortic valve prosthesis. Coronary artery calcifications are seen. No pericardial effusion. Aorta: Thoracic aorta non-dilated. Upper abdomen: Unremarkable. Bones: Sternal wires. Bridging endplate osteophytes in the thoracic spine. No compression fractures . Soft Tissues: Pacemaker over right upper chest. IMPRESSION: No suspicious pulmonary nodules. Lung RADS Cat 2 - Benign Appearance / Behavior: Nodules with a very low likelihood of becoming a clin ically active cancer due to size or lack of growth Lung-RADS 1.0 CATEGORIES: Category 0 - Prior chest CT exam(s) being located for comparison. Category 1 - Annual screening in 12 months. No nodules or definitely benign nodules. Category 2 - Annual screening in 12 months. Benign appearance. Nodules with low likelihood of becomin g active cancer. Category 3 - 6-month follow-up. Probably benign. Short-term follow-up suggested. Nodules with low lik elihood of becoming active cancer. Category 4A - 3-month follow-up and CT/PET if >8 mm in size. Suspicious finding. Findings which requi re additional testing. Category 4B - Findings which require additional testing and tissue sampling. Category 4X - Category 3 or 4 nodules with additional features or imaging findings that increases the suspicion of malignancy. Modifier S- Potentially clinically significant findings (non lung cancer) RADIATION DOSE DELIVERED: !Error Total DLP DATA REPOSITORY: All CT scans at this facility are submitted to the National Radiology Data Registry (NRDR) Dose Index Registry (DIR) with the [employer] (ACR). RADIATION OPTIMIZATION: All CT scans at this facility use at least one of these dose optimization te chniques: automated exposure control; mA and/or kV adjustment per patient size (includes targeted exa ms where dose is matched to clinical indication); or iterative reconstruction.
== END 2024-09-24 01:15 ==
LOC: DI 00:55
PROVIDERS: PCP Nurse Practitioner Adult Health; Visit Provider Nurse Practitioner Adult Health
DX: F17.210 Nicotine dependence, cigarettes, uncomplicated (principal); R91.1 Solitary pulmonary nodule; Z12.2 Encounter for screening for malignant neoplasm of respiratory organs
CPT/HCPCS: 71271

== ENCOUNTER → 2024-10-24 13:20 | Outpatient (BNVA) | payer MEDICARE, MEDICAID, SELFPAY | PROVIDERS: PCP Nurse Practitioner Adult Health; Referring Provider Nurse Practitioner Adult Health; Visit Provider Podiatrist | DX: L84 Corns and callosities (principal); B35.3 Tinea pedis; R23.4 Changes in skin texture; M79.674 Pain in right toe(s); L60.2 Onychogryphosis | CPT/HCPCS: 99204 ==

== ENCOUNTER 2024-11-19 14:44 | Emergency (ER) | payer MEDICARE, MEDICAID, SELFPAY ==
[2024-11-19 14:49] VITALS: BP 175/95; PULSE 62; RESP 15; O2SAT 100
[2024-11-19 14:53] VITALS: BP 175/95; PULSE 62; RESP 15; O2SAT 100
== END 2024-11-19 15:32 ==
LOC: ER 15:31
PROVIDERS: PCP Nurse Practitioner Adult Health
DX: Z48.01 Encounter for change or removal of surgical wound dressing (principal); Z53.21 Procedure and treatment not carried out due to patient leaving prior to being seen by health care provider

== ENCOUNTER 2025-03-17 04:20 | Outpatient (CLI) | payer MEDICARE, MEDICAID, SELFPAY ==
[2025-03-17 14:15] LABS: Anion Gap 5.8 mmol/L (3-11); BUN 14 mg/dL (7-18); CO2 30.2 mmol/L (21.0-32.0); CREATININE 0.9 mg/dL (0.70-1.30); Calcium 8.9 mg/dL (8.5-10.1); Calculated LDL 102 mg/dL (<100); Chloride 95 mmol/L (98-107); Cholesterol 181 mg/dL (<200); Estimated GFR 90.74 (mL/min/1.73m2); Glucose 89 mg/dL (74-106); HDL Cholesterol 67 mg/dL (>or=40); Potassium 3.9 mmol/L (3.5-5.1); Sodium 131 mmol/L (136-145); Triglyceride 60 mg/dL (<150)
== END 2025-03-17 04:21 | disposition home or self-care (01) ==
PROVIDERS: PCP Nurse Practitioner Adult Health; Referring Provider Nurse Practitioner Adult Health; Visit Provider Nurse Practitioner Adult Health
DX: I10 Essential (primary) hypertension (principal); Z91.89 Other specified personal risk factors, not elsewhere classified; I48.91 Unspecified atrial fibrillation
CPT/HCPCS: 36415; 80048; 80061

== ENCOUNTER → 2025-07-16 12:54 | Outpatient (BNVA) | payer MEDICARE, MEDICAID, SELFPAY | PROVIDERS: PCP Nurse Practitioner Adult Health; Referring Provider Nurse Practitioner Adult Health; Visit Provider Internal Medicine Cardiovascular Disease | DX: I48.91 Unspecified atrial fibrillation (principal); R06.09 Other forms of dyspnea; Z45.018 Encounter for adjustment and management of other part of cardiac pacemaker | CPT/HCPCS: 93280 ==

== ENCOUNTER 2025-07-30 00:15 | Outpatient (CLI) | payer MEDICARE, MEDICAID, SELFPAY ==
--- NOTE | 2025-07-30 14:40 | DI.US_ITS ---
APPROVED REPORT EXAM: Comprehensive 2D, Doppler, and color-flow Echocardiogram Patient Location: Out-Patient Sports Journalist: Chloe Francois RDCS (AE) Indications: Dyspnea on exertion, H/O valve replacement Other Information Study Quality: Adequate Conclusion Normal left ventricular chamber size. There is mild asymmetric septal hypertrophy. Ejection fraction is 55 to 60%. There are no segmental wall motion abnormalities Normal right ventricular size and function Both atria are moderately enlarged Device lead noted in the right heart There is a bioprosthetic aortic valve. Mean gradient is 8 mmHg. There is no aortic regurgitation Mildly thickened mitral leaflets. Moderate mitral regurgitation Mild tricuspid regurgitation. Estimated right ventricular systolic pressure is 29 mmHg Wall motion Left Ventricle The left ventricle is normal size. The left ventricular systolic function is normal. The left ventricular ejection fraction is within the normal range. Asymmetric septal thickening is noted. There is normal LV segmental wall motion. There is no ventricular septal defect visualized. LVEF is 54%. Right Ventricle The right ventricle is normal size. The right ventricular systolic function is normal. Pacemaker lead is present in the right ventricle. Atria Left atrium is moderately dilated. Right atrium is moderately dilated. The interatrial septum is intact with no evidence for an atrial septal defect. Aortic Valve Prosthetic aortic valve is normal in appearance. Bioprosthetic aortic valve. Mitral Valve Mitral valve leaflets are mildly thickened. No evidence of mitral valve stenosis. Moderate mitral regurgitation. Tricuspid Valve The tricuspid valve is normal in structure. There is no tricuspid valve stenosis. Mild tricuspid regurgitation. The RVSP is 29.4mmHg. Pulmonic Valve The pulmonary valve is normal in structure. There is no pulmonic valvular stenosis. Mild pulmonic regurgitation. Great Vessels The aortic root is normal in size. Ascending aorta is not well visualized. Aortic arch is normal in caliber. IVC is normal in size and collapses >50% with inspiration. Pericardium There is no pericardial effusion. 2D Dimensions IVSD d PLAX 1.40 cm M: 0.6-1.2 Ao Root d 1.97 cm M: 3.1 - 3.7 LVPW d PLAX 1.20 cm M: 0.6 - 1.2 LVID d PLAX 5.21 cm M: 4.2 - 5.8 LVDs 3.63 cm M: 2.5 - 4.0 LV EF Teichholz 57.4 % FS 30.36 % LV EDV (Teich) 130.2 mL LV ESV (Teich) 55.5 mL Auto EF LV EDV A4C 161.2 mL LV EDV A2C 128.2 mL LV EDV BP 148.2 mL LV ESV A4C 74.5 mL LV ESV A2C 58.1 mL LV ESV BP 68.0 mL LVEF(%) A4C 53.8 % LVEF(%) A2C 54.7 % LVEF(%) BP 54.1 % LV SV A4C 86.6 ml LV SV A2C 70.1 ml LV SV BP 80.2 ml LV CO A4C 5.2 L/min LV CO A2C 4.2 L/min LV CO BP 4.7 L/min HR A4C 59.98 BPM HR A2C 60.08 BPM LV EDV Index (BP) LA Volume LA Length A4C 5.6 cm LA Length A2C 6.6 cm LA Area A4C s 21.79 cm2 LA Area A2C s 26.65 cm2 LA Vol A4C A-L 71.36 mL LA Vol A2C A-L 91.81 mL LA Vol Biplane A-L 87.3 mL LA Vol/BSA A4C A-L LA Vol/BSA A2C A-L LA Vol/BSA BP A-L 45.2 mL/m2 LA Vol A4C MOD 66.5 mL LA Vol A2C MOD 88.1 mL LA Vol BP MOD 82.3 mL RA Volume RA Area A4C 22.9 cm2 RA ESV A4C (A-L) 72.5mL RA Vol/BSA A4C A-L RA Length A4C 6.2 cm RA ESV A4C (MOD) 67.5mL LV Diastology MV E' medial 0.049 (>0.07 m/s) MV E Vmax 1.25 (0.4-1.3 m/s) MV E/E' MED 25.54 (<14) MV A Vmax 0.30 (0.4-1.3 m/s) MV E' lateral 0.107 (>0.1 m/s) E/A Ratio 4.2 MV E/E' LAT 11.65 (<14) MV E' Average 0.078 m/s MV E/E'(average) 16.00 Aortic Valve AoV Vmax 1.89 m/s LVOT Vmax 1.07 m/s AoV Peak Grad 14.3 mmHg LVOT Peak Grad 4.6 mmHg AoV Area (Vmax) 1.77 cm2 LVOT VTI 0.224 m AoV VTI 0.374 m LVOT Mean Grad 2.5 mmHg AoV Mean Stone. 1.31 m/s LVOT SV 70.24 mL AoV Mean Grad 8.0 mmHg LVOT Diam s 1.95 cm AoV Area (VTI) 1.88 cm2 AV Regurg Peak Gr. 14.31 mmHg Velocity Ratio 0.57 Mitral Valve MV DT 209 (160-240 msec) MV Vmax TIPS 1.31 m/s MV Mean Grad 1.8 (<2mmHg) MV VTI 0.322 m Pulmonary Valve PV Vmax 0.71 (0.5-1.5 m/s) RVOT Vmax 0.63 m/s PV Peak Grad 2.0 mmHg RVOT Peak Gr. 1.6 mmHg PV Mean Stone 0.45 m/s RVOT VTI 0.114 m PV Mean Grad 1.0 mmHg RVOT Mean Gr. 0.7 mmHg Tricuspid Valve RA Pressure 3.00 mmHg TR Vmax 2.57 m/s TV S' 0.10 m/s TR Peak Grad 26.3 mmHg RVSP (TR) 29.4 mmHg
== END 2025-07-30 00:35 ==
LOC: DI 00:15
PROVIDERS: PCP Nurse Practitioner Adult Health; Visit Provider Internal Medicine Cardiovascular Disease
DX: R06.09 Other forms of dyspnea (principal)
CPT/HCPCS: 93306

== ENCOUNTER 2025-08-25 16:47 | Outpatient (REF) | payer MEDICARE, MEDICAID, SELFPAY ==
[2025-08-25 21:08] LABS: Abs Immature Grans 0.02 10^3/uL (0.0-0.06); HCT 41.3 % (40.0-50.0); HGB 13.6 g/dL (13.5-17.5); Immature Grans % 0.4 %; MCH 28.9 pg (27.0-33.0); MCHC 32.9 % (32.0-36.0); MCV 88 fL (80-95); MPV 12.2 fL (8.0-11.0); Platelet Count 150 10^3/uL (130-400); RBC 4.70 10^6/uL (4.36-5.78); RDW 12.8 % (11.8-14.1); RDW-SD 41.1 fL; WBC 5.32 10^3/uL (4.4-10.8)
[2025-08-25 21:23] LABS: ALT 26 U/L (16-63); AST 23 U/L (15-37); Albumin 4.0 g/dL (3.4-5.0); Alkaline Phosphatase 47 U/L (46-116); Anion Gap 7.1 mmol/L (3-11); BUN 15 mg/dL (7-18); Bilirubin, Total 0.5 mg/dL (0.2-1.0); CO2 29.9 mmol/L (21.0-32.0); Calcium 9.1 mg/dL (8.5-10.1); Chloride 99 mmol/L (98-107); Glucose 88 mg/dL (74-106); Magnesium 1.9 mg/dL (1.8-2.4); Potassium 4.2 mmol/L (3.5-5.1); Sodium 136 mmol/L (136-145); Total Protein 7.6 g/dL (6.4-8.2)
== END 2025-08-25 16:48 | disposition home or self-care (01) ==
LOC: LBN 16:47
PROVIDERS: PCP Nurse Practitioner Adult Health; Visit Provider Nurse Practitioner Adult Health
DX: R42 Dizziness and giddiness (principal)
CPT/HCPCS: 80053; 83735; 85025

== ENCOUNTER 2025-08-29 12:22 | Outpatient (CLI) | payer MEDICARE, MEDICAID, SELFPAY ==
[2025-08-29 12:32] LABS: Glucose Negative (Negative)
[2025-08-29 22:48] LABS: PSA, Screening 1.7 ng/mL (<=6.5)
== END 2025-08-29 12:23 | disposition home or self-care (01) ==
LOC: LBO 12:23
PROVIDERS: PCP Nurse Practitioner Adult Health; Visit Provider Nurse Practitioner Adult Health
DX: Z86.018 Personal history of other benign neoplasm (principal); R31.9 Hematuria, unspecified; K62.5 Hemorrhage of anus and rectum
CPT/HCPCS: 36415; 84153; 81003

== ENCOUNTER → 2025-09-23 00:34 | Outpatient (CLI) | payer MEDICARE, MEDICAID, SELFPAY ==
[2025-09-23] MEDS: Barium Sulfate 2% W/V-Berry Smoothie 450 ML BTL PO ×4 (11:42→11:46)
[2025-09-23] MEDS: Normal Saline - Diluent 50 ML VIAL IJ (14:21)
[2025-09-23] MEDS: Normal Saline Flush 10 ML SYR IVP (14:21)
[2025-09-23] MEDS: Omnipaque 350 MG/ML 100 ML BTL IJ (14:22)
--- NOTE | 2025-09-23 14:30 | DI.CT_ITS ---
Exam(s) CT ABDOMEN PELVIS W EXAM: CT ABDOMEN PELVIS W CLINICAL HISTORY: Assess prostate bladder and distal rectum,?MASS. TECHNIQUE: Imaging Protocol: Axial computed tomography images with coronal and sagittal reformatted images were created and reviewed CONTRAST MATERIAL: Intravenous: Omnipaque 350 Contrast volume:100 ml Oral: yes COMPARISON: CT CT CHEST/ABD/PEL W from 09/23/2022 FINDINGS: ABDOMEN and PELVIS: Lung Bases: No acute findings. Respiratory motion. The heart is enlarged. Liver: Normal density. No suspicious mass. Gallbladder and biliary tract: Stable appearance of markedly thickened gallbladder wall with multiple small cysts... No biliary dilation. Pancreas: Normal density. No abnormal calcifications or inflammatory process. No evidence of mass. Spleen: Normal. Kidneys: Normal size, contour and axis. No radiodense stones. No obstructive uropathy. Multiple renal cysts. No suspicious masses seen. Adrenal glands: No masses seen. Vasculature: Abdominal aorta non-dilated. Soft tissues: Bilateral fat containing inguinal hernias. Bladder: No mild diffuse wall thickening. No calculi.No focal mass. Bowel: No obstruction. No bowel wall thickening. Appendix normal. Diverticulosis in the sigmoid colon. Peritoneal cavity: No ascites. No focal collection. No mesenteric inflammatory response. No free air. Bones: Unremarkable for age. Reproductive organs: The prostate is enlarged, measuring 5.6 cm transverse by 4.2 cm AP by 5.5 cm cephalo caudad. This is unchanged from the prior exam. Lymph nodes: No pathologically enlarged lymph nodes. IMPRESSION:: Enlarged prostate which impresses on the base of the bladder. There is no visible discrete prostate or bladder mass. Bilateral fat containing inguinal hernias. Findings appear stable when compared with 2021. RADIATION DOSE DELIVERED: 626.22mGy.cm Total DLP DATA REPOSITORY: All CT scans at this facility are submitted to the National Radiology Data Registry (NRDR) Dose Index Registry (DIR) with the [employer] (ACR). RADIATION OPTIMIZATION: All CT scans at this facility use at least one of these dose optimization techniques: automated exposure control; mA and/or kV adjustment per patient size (includes targeted exams where dose is matched to clinical indication); or iterative reconstruction.
== END ==
LOC: DI 00:34
PROVIDERS: PCP Nurse Practitioner Adult Health; Visit Provider Nurse Practitioner Adult Health
DX: K62.5 Hemorrhage of anus and rectum (principal); R31.9 Hematuria, unspecified; Z86.018 Personal history of other benign neoplasm; K40.20 Bilateral inguinal hernia, without obstruction or gangrene, not specified as recurrent
CPT/HCPCS: 74177; J3490

== ENCOUNTER 2025-10-01 14:30 | Outpatient (CLI) | payer MEDICARE, MEDICAID, SELFPAY ==
--- NOTE | 2025-10-01 14:30 | RT.EKG_ITS ---
APPROVED REPORT Exam: Resting ECG Reason for Exam: R and L chest pain Patient Location: O HR:74 bpm ECG Measurements Heart Rate 74 AXIS HI 232 P 127 QRSd 167 QRS 73 QT 451 T 108 QTc 501 Conclusion Atrial-paced complexes...other complexes also detected Prolonged HI interval...HI >220, V-rate 50- 90 Probable left ventricular hypertrophy...(RaVL+SV3)xQRSd
== END 2025-10-01 14:31 | disposition home or self-care (01) ==
PROVIDERS: PCP Nurse Practitioner Adult Health; Visit Provider Nurse Practitioner Adult Health
DX: R07.9 Chest pain, unspecified (principal)
CPT/HCPCS: 93010

== ENCOUNTER 2025-10-01 15:05 | Emergency (ER) | payer MEDICARE, MEDICAID, SELFPAY ==
--- NOTE | 2025-10-01 15:00 | RT.EKG_ITS ---
APPROVED REPORT Exam: Resting ECG Reason for Exam: chest pain Patient Location: E HR:69 bpm ECG Measurements Heart Rate 69 AXIS DC 312 P [id number] QRSd 161 QRS 266 QT 445 T 102 QTc 477 Conclusion Atrial-paced complexes...other complexes also detected Prolonged DC interval...DC >220, V-rate 50- 90 Anterolateral infarct, age indeterminate...Q >35mS, flat/neg T, V3-V6,I,aVL Underdetermined rhythm, does appear to have some prolong p-waves. Prolonged QRS with LBBB appearance. [place], EKG from earlier today with probable limb lead reversal. Left axis present on EKG from 10/16/23. No acute ST changes.
[2025-10-01 15:07] VITALS: BP 171/98; PULSE 56; RESP 16; O2SAT 98
--- NOTE | 2025-10-01 15:47 | W.ED.GENAD ---
Discharge Plan Disposition Patient Disposition: Against Medical Advice Condition: Stable Discharge Details Clinical Impression: Chest pain of uncertain etiology Primary Care Provider: Katelynn Rollins ED Provider: Neto Chu Home Meds and New Rx's Prescriptions: Continued latanoprost 0.005 % drops 1 drp ophthalmic (eye) QPM Rx Instructions: 1 GTT OU qhs ketoconazole 2 % cream 1 applic topical DAILY Qty: 120 6RF Rx Instructions: Apply to toenails once daily rosuvastatin 10 mg tablet 10 mg PO HS Qty: 90 3RF Rx Instructions: Changing statin to moderate intensity statin (stop pravastatin) acetaminophen 325 mg tablet See Rx Instructions PO ONCE PRN Rx Instructions: 3 tablets every 6 hours for pain orally once PRN; Eliquis 5 mg tablet See Rx Instructions .ROUTE .COMPLEX Qty: 360 1RF Dose Instruction: TAKE ONE TABLET BY MOUTH TWICE A DAY Rx Instructions: TAKE ONE TABLET BY MOUTH TWICE A DAY ammonium lactate 12 % cream 1 applic topical BID Qty: 280 5RF Rx Instructions: apply thin film to both heels and lower shins twice a day amlodipine 2.5 mg tablet 2.5 mg PO DAILY Qty: 90 3RF Rx Instructions: Restarting low dose for BP goal <140/90 lisinopril-hydrochlorothiazide 20-12.5 mg tablet See Rx Instructions .ROUTE .COMPLEX Qty: 90 3RF Dose Instruction: TAKE ONE TABLET BY MOUTH EVERY DAY Rx Instructions: TAKE ONE TABLET BY MOUTH EVERY DAY Discharge Instructions Instructions: Chest Pain, Adult ED Additional Instructions: You were seen in the emergency department referred by her primary care provider about your intermittent right and left sharp brief momentary chest pains ongoing for weeks. Your cardiac workup is negative, he had elevated D-dimer which sometimes can be elevated in the setting of a blood clot in the lungs but CT angiogram of your lung shows no blood clot if no elevation white blood cells and your electrolytes are within normal limits, your EKG does show that your pacemaker is only intermittently capturing but your rate is stable and you displayed no tachyarrhythmias or unstable symptoms here in the ED. I did page out [facility] electrophysiology but you stated you wanted to go home. You understand that you are leaving AGAINST MEDICAL ADVICE because we have no definitive expert consultation on your pacemaker which could result in , coma or other permanent injury, please monitor your condition closely and return for any emergent concerns. Stand Alone Forms: Portal Information Referrals: Katelynn Rollins NP [Primary Care Provider, Medicine] Discharge Data Discharge Date/Time-TO BE ENTERED AT DEPARTURE: 10/01/25 18:11 HPI General Date/Time Provider Initiated Documentation: 10/01/25 15:12. HPI Narrative: 74 year-old male presents to ED today by POV/ambulating with a chief complaint of urged to present from PCP visit for vague brief, seconds-long chest pains on R and L of chest for the past few weeks, with known aortic valve replacement and pacemaker followed by [facility]. Quality described as brief sharp chest pains, questions whether this could be related to dust and debris exposure on 06/26 in [facility], versus problem with his pacemaker which he has been recommended to have a reset by [facility] electrophysiology at [facility] at some point but is having trouble getting follow-up, no radiation to shortness of breath, hemoptysis, fever, productive cough, endorses migraines at baseline which cause dizziness, states he has depression as well. Severity is described as mild to moderate, states that he thought about not even mentioning these chest pains at his primary care appointment. Palliating factors include nothing specific attempted. Provoking factors include nonexertional onset. Events leading up to the incident/Associated Symptoms: Patient starts visit off stating that he will leave no matter the plan if the visit takes too long. Patient is anticoagulated. Related Data Home Medications ?Medication ?Instructions ?Recorded ?Confirmed latanoprost 0.005 % eye drops 1 drp ophthalmic (eye) QPM glaucoma 01/26/22 10/01/25 acetaminophen 325 mg tablet See Rx Instructions PO ONCE PRN 10/26/23 10/01/25 apixaban 5 mg tablet (Eliquis) See Rx Instructions .Route 10/13/24 10/01/25 .COMPLEX #360 tabs ketoconazole 2 % topical cream 1 applic topical DAILY #120 grams 10/24/24 10/01/25 ammonium lactate 12 % topical cream 1 applic topical BID #280 grams 11/15/24 10/01/25 amlodipine 2.5 mg tablet 2.5 mg PO DAILY #90 tabs 02/12/25 10/01/25 rosuvastatin 10 mg tablet 10 mg PO HS #90 tabs 03/19/25 10/01/25 lisinopril 20 See Rx Instructions .Route 07/21/25 10/01/25 mg-hydrochlorothiazide 12.5 mg .COMPLEX #90 tabs tablet Previous Rx's ?Medication ?Instructions ?Recorded apixaban 5 mg tablet (Eliquis) See Rx Instructions .Route 10/13/24 .COMPLEX #360 tabs ketoconazole 2 % topical cream 1 applic topical DAILY #120 grams 10/24/24 ammonium lactate 12 % topical cream 1 applic topical BID #280 grams 11/15/24 amlodipine 2.5 mg tablet 2.5 mg PO DAILY #90 tabs 02/12/25 rosuvastatin 10 mg tablet 10 mg PO HS #90 tabs 03/19/25 lisinopril 20 See Rx Instructions .Route 07/21/25 mg-hydrochlorothiazide 12.5 mg .COMPLEX #90 tabs tablet Allergies Allergy/AdvReac Type Severity Reaction Status Date / Time No Known Allergies Allergy Verified 10/01/25 15:43 General Stated Complaint: Chest Pain FANNY: 2 Review of Systems All systems reviewed & are unremarkable except as noted in HPI and below Exam Narrative Exam Narrative: GENERAL APPEARANCE: Well-nourished, non-toxic, awake and alert, atraumatic, no acute distress. SKIN: Warm, pink, dry, intact, without rashes/lesions/ulcerations. HEAD: Normocephalic, atraumatic, normal hair distribution for gender/age. EYES: Normal conjunctiva, no exudates on lids/lashes. ENT: Nares patent, no circumoral cyanosis, no facial swelling NECK: Supple, trachea midline, painless cervical ROM. LUNGS/CHEST: Lungs CTA bilaterally-no rhonchi/rales/wheeze diffusely, non-labored respirations, normal A/P diameter, symmetrical expansion, no chest wall deformity, no chest tenderness HEART (CV/PV): Irregularly irregular rate and rhythm without murmur, no peripheral edema, no JVD. ABDOMEN: Soft, non-distended, no guarding, no abdominal tenderness. MSK: Normal ROM, no swelling/deformity to bilateral UEs or LEs, moving all extremities without weakness, no cyanosis, spine midline without tenderness, normal curvature. NEURO: Mental Status AAOx4 - alert to person, place, time, events No facial droop, no forehead involvement. Motor: No focal weakness - strength 5/5 in bilateral UEs and LEs, proximal and distal, symmetric. Sensory: sensation intact to light touch globally. Gait normal: patient ambulated without ataxia into ED room. PSYCH: dysthymic, cooperative, pleasant, appropriate speech Course Vital Signs Vital signs: Vital Signs Pulse 56 L 10/01/25 15:07 Respiratory Rate 16 10/01/25 15:07 Blood Pressure 171/98 H 10/01/25 15:07 Pulse Oximetry 98 10/01/25 15:07 Pulse 56 L 10/01/25 15:07 Respiratory Rate 16 10/01/25 15:07 Respiratory Effort Normal 10/01/25 15:44 Blood Pressure 171/98 H 10/01/25 15:07 Pulse Oximetry 98 10/01/25 15:07 Pain Level 5 10/01/25 15:07 Medical Decision Making This dictation utilizes [id number] dictation software and may contain unedited grammatical errors. 74 year-old male presents to ED today by POV/ambulating with a chief complaint of urged to present from PCP visit for vague brief, seconds-long chest pains on R and L of chest for the past few weeks, with known aortic valve replacement and pacemaker followed by [facility]. Quality described as brief sharp chest pains, questions whether this could be related to dust and debris exposure on 06/26 in [facility], versus problem with his pacemaker which he has been recommended to have a reset by [facility] electrophysiology at [facility] at some point but is having trouble getting follow-up, no radiation to shortness of breath, hemoptysis, fever, productive cough, endorses migraines at baseline which cause dizziness, states he has depression as well. Severity is described as mild to moderate, states that he thought about not even mentioning these chest pains at his primary care appointment. Palliating factors include nothing specific attempted. Provoking factors include nonexertional onset. Events leading up to the incident/Associated Symptoms: Patient starts visit off stating that he will leave no matter the plan if the visit takes too long. Patients' medical history: Aortic valve replacement, intermittent complete heart block with pacemaker, atrial fibrillation on anticoagulation, chronic headaches, status post mitral valve repair, status post ablation for A-fib, hypertension. Family and social history: Many pack-year smoking history, does not currently smoke, denies recent travel or sick contacts. Pertinent exam findings / vital signs include benign cardiopulmonary exam, benign abdomen, neuro intact, nontoxic and afebrile. Differential / pathologies of concern include ACS, PE, arrhythmia, pacemaker problem, costochondritis, pleurisy, pneumonia or bronchitis. Diagnostic studies of: - CBC, CMP, D-dimer, BNP, troponin, lipase, CTA chest PE study, EKG. - CBC shows no actionable abnormality - D-dimer is positive at 1400, refluxing to CTA chest - CMP without actionable abnormality - Magnesium within normal limits - Troponin negative with reliable onset - BNP negative - Lipase negative - CTA chest PE study shows no acute pulmonary process, no PE - EKG shows atrial paced complexes but irregular likely in paced atrial fibrillation without ST changes or new T wave abnormalities Interventions of: - Given 1 g oral Tylenol for migraine at patient's request, consulted with [facility] cardiology on-call who is covering for electrophysiology they state that he has gone into A-fib, they have no concerns in regards to his presentation and he is anticoagulated, they will follow-up with him this week for his pacemaker evaluation, patient had already left AGAINST MEDICAL ADVICE at the time of this consult. ED Course/Assessment/Plan: 75-year-old male presents with brief right and left pinpoint sharp chest pains ongoing for weeks, duration of seconds, has known cardiac history of aortic valve replacement, mitral valve repair and pacemaker with history of complete heart block and atrial fibrillation, denies history of heart attack, he states at the beginning of the visit that he will be leaving no matter what to go home if the visit takes too long expresses dissatisfaction ahead of time with how long it is going to take to consult with his outside property agent, he states that he has had vague plans to see his outside property agent from [facility] at [facility] where they will reset his pacemaker but he has not heard from them in 3 months per his account, his troponins are negative with reliable onset, EKG and interrogation of his pacemaker shows that he has gone into A-fib but is anticoagulated, his D-dimer was elevated but his CTA chest shows no PE, once this workup was complete and electrophysiology was paged out engaged the patient's desire to stay for consult he stated he would be going home, he acknowledged the risk that we are not acknowledging the potential arrhythmia without expert consultation, that this could result in negative outcomes including, and permanent disability, he signed AGAINST MEDICAL ADVICE due to this for not wanting to wait he is of sound mind when he makes this decision. I spoke with electrophysiology later and they will follow-up with him but they had no acute concerns. Findings not consistent with ACS, PE, pacemaker failure, infection, pneumonia, electrolyte derangement, CHF. Disposition of Chest Pain of Uncertain Etiology. Patient verbalized understanding of the plan and return to ED criteria and engaged in shared decision making. Medical Records Medical records reviewed: Yes I reviewed the patient's medical records. Imaging Data Radiologic Study: Attestation: I personally reviewed and interpreted this imaging study as follows: Imaging: CT Scan Radiologist's impression: EXAM: CT CHEST PE CTA CLINICAL HISTORY: R sided CP for weeks, elev d-dimer. TECHNIQUE: Imaging Protocol: Axial CT angiography was performed with multi-slice acquisition and multi-planar and/or 3D reconstructions. Lung Computer Aided Detection (CAD) was utilized. CONTRAST MATERIAL: Intravenous: Omnipaque 350 contrast volume:100 mL COMPARISON: CT CT CHEST/ABD/PEL W from 09/23/[address] CHEST LUNG CANCER SCREEN from 08/11/[address] CHEST LUNG CANCER SCREEN from 09/24/2024 FINDINGS: Tracheobronchial tree: Patent where visualized. No bronchiectasis. Pulmonary parenchyma: No consolidation or dominant measurable mass. No architectural distortion. Pulmonary Arteries: No evidence of filling defect to suggest pulmonary emboli. Mediastinum and Yumiko: No dominant adenopathy or fluid collection. The esophagus is unremarkable. Visualized thyroid gland: Unremarkable. Pleura: No effusion or pneumothorax. Heart: Heart is enlarged. The patient is status post CABG. Coronary artery calcification is present. No pericardial effusion. Aorta: The ascending thoracic aorta measures 3.9 x 3.8 cm. Atherosclerotic calcification is present. Upper abdomen: Gallstones are present. Tubes, Catheters, and Lines: There is a cardiac monitoring device seen in the right chest wall. Soft tissues: Unremarkable. Bones: Within normal limits for the patient's age. IMPRESSION: 1. There is no evidence of a pulmonary embolism. 2. There is no acute pulmonary process. Lab Data Lab results reviewed: Yes I reviewed the patient's lab results. Labs: Laboratory Tests Range/Units 10/01/25 15:26 WBC (4.4-10.8) 10^3/uL 5.20 RBC (4.36-5.78) 10^6/uL 5.00 Hgb (13.5-17.5) g/dL 14.3 Hct (40.0-50.0) % 42.7 MCV (80-95) fL 85 MCH (27.0-33.0) pg 28.6 MCHC (32.0-36.0) % 33.5 RDW (11.8-14.1) % 12.8 Plt Count (130-400) 10^3/uL 170 MPV (8.0-11.0) fL 11.5 H Immature Gran % % 0.4 Neutrophils % % 65.2 Lymphocytes % % 22.3 Monocytes % % 9.2 Eosinophils % % 2.3 Basophils % % 0.6 Nucleated RBC % (0.0-0.3) % 0.0 Absolute Neutrophils (1.2-6.7) 10^3/uL 3.39 Absolute Lymphocytes (1.2-3.4) 10^3/uL 1.16 L Absolute Monocytes (0.1-0.8) 10^3/uL 0.48 Absolute Eosinophils (0.0-0.7) 10^3/uL 0.12 Absolute Basophils (0.0-0.2) 10^3/uL 0.03 D-Dimer (<500) ng/mlFEU 1422 H Sodium (136-145) mmol/L 136 Potassium (3.5-5.1) mmol/L 3.5 Chloride (98-107) mmol/L 99 Carbon Dioxide (20.0-31.0) mmol/L 29.0 Anion Gap (3-11) mmol/L 7.6 BUN (9-23) mg/dL 12 Creatinine (0.73-1.18) mg/dL 0.99 Est GFR (CKD-EPI 2020) (mL/min/1.73m2) 74.14 Glucose (74-106) mg/dL 84 Calcium (8.3-10.6) mg/dL 9.4 Magnesium (1.6-2.6) mg/dL 1.8 Total Bilirubin (0.2-1.2) mg/dL 0.5 AST (<34) U/L 21 ALT (10-49) U/L 15 Alkaline Phosphatase (46-116) U/L 49 Troponin I (<54) ng/L 22 NT-Pro-B Natriuret Pep (<300) pg/mL 129 Total Protein (5.7-8.2) g/dL 8.0 Albumin (3.2-5.0) g/dL 4.8 Lipase (<53) U/L 35 PFSH All Active Problems (Updated 10/01/25 @ 17:43 by TYRONE Luna) Chest pain of uncertain etiology (Acute) Genitourinary bleeding (Acute) Imbalance (Acute) Sensorineural hearing loss, bilateral (Acute) Chronic anticoagulation (Chronic) AVR & PAF s/p ablation Bright red blood per rectum (Acute) Fissure in skin of both feet (Acute) Corns and callosities (Acute) Tinea pedis (Acute) BCC (basal cell carcinoma), back (Acute ~09/2024) 11/14/24 [facility] Derm note: ED&C of lesion on R back. [facility] Derm Pacemaker (Acute ~2023) 10/23/23 [employer] pacemaker [facility] RH External hemorrhoids without complication (Acute) Adenomyomatosis of gallbladder (Acute ~10/2022) Repeat MRI 2025 per rad read 2023 Nicotine use disorder (Chronic) Atrial fibrillation with RVR (Chronic) Solitary pulmonary nodule on lung CT (Acute ~01/2021) Annual lung cancer screenings 2/2 nicotine use Essential hypertension (Chronic 05/27/13) [place] cardiac risk 10-20% in next 10 years (Acute 02/03/16) 19.2% before lipid therapy Medical History (Updated 10/01/25 @ 17:43 by TYRONE Luna) Intermittent complete heart block [facility] Cardiology 07/04/24 History of benign bladder tumor Dr. 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 Derm Note-09/28/[address] scan, kidney (~03/2022) L kidney on CT-chest--Partially included left kidney finding as described above which should undergo ultrasound to ensure that it is a simple cyst and not solid. 09/2022--simple cyst (renal US) Hyponatremia (~2021) Weight loss BPH (benign prostatic hyperplasia) (~2022) Stable & discharged urology Pure hypercholesterolemia (02/03/16) Anxiety about health Wide-complex tachycardia Diverticula of colon Advanced directives, counseling/discussion (05/07/19) Chronic headache Smoker (01/19/15) Paroxysmal atrial fibrillation (04/15/17) 04/12/18 [facility] (referred by Dr Jerry) Hyperkeratosis of sole (02/03/16) HTN (hypertension) Migraine Surgical History Normal cystoscopy for evaluation gross hematuria. 01/16/23 [facility] note- Cystoscopy w/ Dr. Partida (- cysto). S/P MVR (mitral valve repair) (~10/2023) 10/19/[address] [facility] S/P AVR (aortic valve replacement) (~10/2023) Redo on 10/19/2023 S/P ablation of atrial fibrillation (08/05/21) and atrial flutters [facility] Hx of colonoscopy History of aortic valve replacement with bioprosthetic valve (01/21/13) 04/16/[address] 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 Pets and animals: Yes Pets and animals: cat(s) Sexually active: No Do you think of yourself as: straight/heterosexual Current gender identity: male What is your relationship status?: How often do you talk on the phone with friends or family?: never How often do you get together with friends or relatives?: never Do you belong to any clubs or organized social groups?: no Panel score (0-1 are the most socially isolated patients): 0 What type of physical activity do you participate in: walking Duration: 45-60 minutes/day Frequency: 3-4 times per week Seatbelt use: always Helmet use: Yes Helmet use: always Drive intox or ride w/intox ross carrier driver: No Water heater temp set <120 deg: Yes Working smoke detector in home: Yes Carbon monox detector in home: Yes Do you feel safe at home: Yes Do you feel safe in your relationship?: Yes
[2025-10-01 15:50] LABS: Abs Immature Grans 0.02 10^3/uL (0.0-0.06); HCT 42.7 % (40.0-50.0); HGB 14.3 g/dL (13.5-17.5); Immature Grans % 0.4 %; MCH 28.6 pg (27.0-33.0); MCHC 33.5 % (32.0-36.0); MCV 85 fL (80-95); MPV 11.5 fL (8.0-11.0); Platelet Count 170 10^3/uL (130-400); RBC 5.00 10^6/uL (4.36-5.78); RDW 12.8 % (11.8-14.1); RDW-SD 39.2 fL; WBC 5.20 10^3/uL (4.4-10.8)
[2025-10-01 16:07] LABS: Lipase 35 U/L (<53)
[2025-10-01 16:08] LABS: Magnesium 1.8 mg/dL (1.6-2.6)
[2025-10-01 16:09] LABS: ALT 15 U/L (10-49); AST 21 U/L (<34); Albumin 4.8 g/dL (3.2-5.0); Alkaline Phosphatase 49 U/L (46-116); Anion Gap 7.6 mmol/L (3-11); BUN 12 mg/dL (9-23); Bilirubin, Total 0.5 mg/dL (0.2-1.2); CO2 29.0 mmol/L (20.0-31.0); Calcium 9.4 mg/dL (8.3-10.6); Chloride 99 mmol/L (98-107); Glucose 84 mg/dL (74-106); Potassium 3.5 mmol/L (3.5-5.1); Sodium 136 mmol/L (136-145); Total Protein 8.0 g/dL (5.7-8.2); Troponin I 22 ng/L (<54)
[2025-10-01 16:17] LABS: D-Dimer 1422 ng/mlFEU (<500)
--- NOTE | 2025-10-01 16:30 | DI.CT_ITS ---
Exam(s) CT CHEST PE CTA EXAM: CT CHEST PE CTA CLINICAL HISTORY: R sided CP for weeks, elev d-dimer. TECHNIQUE: Imaging Protocol: Axial CT angiography was performed with multi- slice acquisition and multi-planar and/or 3D reconstructions. Lung Computer Aided Detection (CAD) was utilized. CONTRAST MATERIAL: Intravenous: Omnipaque 350 contrast volume:100 mL COMPARISON: CT CT CHEST/ABD/PEL W from 09/23/[address] CHEST LUNG CANCER SCREEN from 08/11/[address] CHEST LUNG CANCER SCREEN from 09/24/2024 FINDINGS: Tracheobronchial tree: Patent where visualized. No bronchiectasis. Pulmonary parenchyma: No consolidation or dominant measurable mass. No architectural distortion. Pulmonary Arteries: No evidence of filling defect to suggest pulmonary emboli. Mediastinum and Yumiko: No dominant adenopathy or fluid collection. The esophagus is unremarkable. Visualized thyroid gland: Unremarkable. Pleura: No effusion or pneumothorax. Heart: Heart is enlarged. The patient is status post CABG. Coronary artery calcification is present. No pericardial effusion. Aorta: The ascending thoracic aorta measures 3.9 x 3.8 cm. Atherosclerotic calcification is present. Upper abdomen: Gallstones are present. Tubes, Catheters, and Lines: There is a cardiac monitoring device seen in the right chest wall. Soft tissues: Unremarkable. Bones: Within normal limits for the patient's age. IMPRESSION: 1. There is no evidence of a pulmonary embolism. 2. There is no acute pulmonary process. RADIATION DOSE DELIVERED: 127.42mGy.cm Total DLP DATA REPOSITORY: All CT scans at this facility are submitted to the National Radiology Data Registry (NRDR) Dose Index Registry (DIR) with the [employer] (ACR). RADIATION OPTIMIZATION: All CT scans at this facility use at least one of these dose optimization techniques: automated exposure control; mA and/or kV adjustment per patient size (includes targeted exams where dose is matched to clinical indication); or iterative reconstruction.
[2025-10-01] MEDS: Normal Saline - Diluent 50 ML VIAL IJ (16:39)
[2025-10-01] MEDS: Omnipaque 350 MG/ML 100 ML BTL IJ (16:40)
[2025-10-01] MEDS: Normal Saline Flush 10 ML SYR IVP (16:48)
[2025-10-01] MEDS: Acetaminophen 500 MG TAB 1000 MG PO (16:57)
== END 2025-10-01 18:11 | disposition left against medical advice (07) ==
PROVIDERS: Emergency Provider Physician Assistant; PCP Nurse Practitioner Adult Health
DX: R07.9 Chest pain, unspecified (principal); Z95.2 Presence of prosthetic heart valve; Z95.0 Presence of cardiac pacemaker; Z79.01 Long term (current) use of anticoagulants; Z53.20 Procedure and treatment not carried out because of patient's decision for unspecified reasons
CPT/HCPCS: 99284; 99285; 36415; 71275; 80053; 83690; 93005; 83735; 83880; 84484; 85025; 85379; 93010; J3490

== ENCOUNTER → 2025-10-02 13:18 | Outpatient (BNVA) | payer MEDICARE, MEDICAID, SELFPAY | PROVIDERS: PCP Nurse Practitioner Adult Health; Referring Provider Nurse Practitioner Adult Health; Visit Provider Surgery | DX: K62.5 Hemorrhage of anus and rectum (principal) | CPT/HCPCS: 99214 ==